=== PATIENT | male | born 1950 | race Caucasian/White ===

== ENCOUNTER 2017-12-05 10:49 | Emergency (ER) | payer MEDICARE, MEDICAID, SELFPAY ==
[2017-12-05 10:50] VITALS: BP 128/84; PULSE 109; RESP 15; TEMP 35.8; O2SAT 94; BMI 27.5
--- NOTE | 2017-12-05 10:57 | RAD_ITS ---
STUDY: X-RAY CHEST REASON FOR EXAM: Male, 67 years old. Shortness of breath. TECHNIQUE: PA and lateral views of the chest. COMPARISON: Comparison is made with prior study dated April 12, 2017. FINDINGS: EKG electrodes are seen. Stable elevation of the right hemidiaphragm. Mild increased linear markings at the lung bases suggestive of bibasilar linear atelectasis. There is no demonstrated pleural abnormality. Normal size heart. Normal mediastinum and bruce. Normal visualized pulmonary arteries. There is atherosclerotic tortuosity of the aortic arch and descending thoracic aorta. There is demineralization of the osseous structures. Healed bilateral rib fractures. There is no demonstrated abnormality of the visualized soft tissue structures of the upper abdomen. RAD/Chest PA and Lateral IMPRESSION: Mild degree of increased linear markings at the lung bases suggestive of bibasilar linear atelectasis. Electronically Signed: Pedro Mendez MD at 12:27 EDT Tel [phone], Service support ,
--- NOTE | 2017-12-05 11:27 | EKG12_ITS ---
Test Reason : SOB Blood Pressure : / mmHG Vent. Rate : 084 BPM Atrial Rate : 084 BPM P-R Int : 166 ms QRS Dur : 092 ms QT Int : 382 ms P-R-T Axes : 020 -11 007 degrees QTc Int : 451 ms Normal sinus rhythm Normal ECG Confirmed by KIMMY QUIÑONEZ MD ([id number]), make up editor DIANE MONIQUE ([id number]) on 12/07/2017 1:30:16 PM Referred By: AUNDREA Confirmed By:KIMMY QUIÑONEZ MD
--- NOTE | 2017-12-05 11:28 | ED.VIS.GEN ---
History of Present Illness Chief Complaint: Shortness of Breath Informant: Patient Onset: Days - 2-3 Quality: can't breathe Location: chest Current Severity: Mild Maximum Severity: Moderate Worsened by: exertion, sometimes w/ lying down Relieved by: rest Associated Symptoms: cough prod of green sputum Narrative: Patient has been feeling poorly for the last 2 or 3 days with dyspnea with exertion, green productive cough, no fevers/chills/rigors, he does not think he has had any chest discomfort or heaviness or pressure. Denies any new swelling in his legs, sore throat, earache, runny nose. - Past Medical History (1) Depression Status: Chronic (2) Hyperlipidemia Status: Chronic (3) Hypertension Status: Chronic (4) Type II diabetes mellitus Status: Chronic Past Medical History - Allergies and Home Meds Allergies/Adverse Reactions: Allergies No Known Allergies Allergy (Verified 12/05/17 10:52) Home Medications: Home Medications Medication Instructions Recorded Doxycycline Monohydrate 100 mg PO BID #20 cap 12/05/17 Primary Care Physician: Jerson Salmeron III, MD [Primary Care Provider] - Surgical History: noncontributory Smoking Status: Former smoker Drugs: None Review of Systems All systems negative except as indicated General: Reports: Malaise. Denies: Chills, Fever Cardiovascular: Denies: Chest pain Respiratory: Reports: Dyspnea, Sputum, Dyspnea on exertion. Denies: Paroxysmal nocturnal dyspnea Gastrointestinal: Denies: Abdominal pain, Nausea, Vomiting, Diarrhea, Melena, Hematochezia Musculoskeletal: Denies: Neck pain, Back pain, Swelling, Extremity Pain Physical Exam Vital Signs/Narrative: Vital Signs Temp Pulse Resp BP Pulse Ox 12/05/17 10:50 96.5 F L 109 H 15 128/84 H 94 General: Well nourished, Well developed Head: Normocephalic, Atraumatic Eyes: Perrl, EOMI ENT: Moist mucous membranes, No rhinorrhea, TM's clear. Negative for: Sinus tenderness Neck: Supple, Nontender, No lymphadenopathy, No JVD Cardiovascular: Regular rate, Regular rhythm, No murmurs, Normal S1, Normal S2, Tachycardia - borderline Respiratory: No distress, CTA bilaterally, Chest nontender Abdomen: Soft, Nontender, Nondistended, Normal bowel sounds Back: Nontender, Normal Inspection Extremities: Nontender, No edema Skin: Normal color, No rash Neurological: Alert, Oriented x3, Cranial nerves II-XII grossly intact, Normal Strength, Normal Sensation Psychological: Normal affect Diagnostic/Tx/Re-eval Impressions Chest X-Ray 12/05/17 10:57 IMPRESSION: Mild degree of increased linear markings at the lung bases suggestive of bibasilar linear atelectasis. Electronically Signed: Pedro Mendez MD at 12:27 EDT Tel [phone], Service support , 12/05/17 10:57 Chest PA and Lateral [RAD] Stat Laboratory Results 12/05/17 12/05/17 12/05/17 Range/Units 11:55 11:55 11:55 WBC 6.2 (4.4-11.0) K/mm3 RBC 4.62 (4.6-6.2) M/mm3 Hgb 14.2 (13.0-16.5) g/dl Hct 43.9 (40-54) % MCV 95.0 H (80-94) fL MCH 30.7 (27.0-32.0) pg MCHC 32.3 (32-36) g/gl RDW 14.8 H (11.6-14.6) % RDW Differential 51.2 H (35.1-43.9) fl Plt Count 130 L (150-450) K/mm3 MPV 10.0 (6.2-12.0) fl Immature Gran % (Auto) 0.300 (0.0-0.9) % Neut % (Auto) 79.0 H (47-70) % Lymph % (Auto) 10.8 L (19-41) % Stevens % (Auto) 8.6 (0-10) % Eos % (Auto) 1.0 (0-5) % Baso % (Auto) 0.3 (0-1) % Absolute Neuts (auto) 4.9 (2.0-7.7) X10^3/uL Absolute Lymphs (auto) 0.67 L (0.83-4.51) X10^3/ul Total Counted Not Reportable Sodium 137 (136-145) mmol/L Potassium 4.8 (3.5-5.1) mmol/L Chloride 104 (98-107) mmol/L Carbon Dioxide 26.0 (21.0-32.0) mmol/L Anion Gap 7 (5-15) BUN 33 H (7-18) mg/dL Creatinine 1.52 H (0.70-1.30) mg/dL Estim Creat Clear Calc 53.18 ml/min Est GFR (MDRD) Af Amer 59 L (>60) mL/min Est GFR (MDRD) Non-Af 49 L (>60) mL/min BUN/Creatinine Ratio 21.7 H (10-20) RATIO Glucose 313 H (74-106) mg/dL Calcium 8.9 (8.5-10.1) mg/dL Troponin I < 0.015 (<0.045) ng/mL B-Natriuretic Peptide 2.2 (0-100) pg/mL - Medical Decision Making Vital signs are normal, patient clinically is doing well, ancillaries are reassuring, including EKG, labs, chest x-ray which showed some basilar atelectasis but no definite infiltrates. He is a former smoker. Will prescribe him broad-spectrum doxycycline in case this is indicative of early pneumonia, but either way I think he can be treated as an outpatient which I discussed with him and he is comfortable with that. Advised to follow-up with his doctor for reevaluation. ED Disposition - Plan for ED Patient: Disposition: Home or Assisted Living Chief Complaint: Shortness of Breath Diagnosis: Acute bronchitis Instructions: Acute Bronchitis Prescriptions: Doxycycline Monohydrate 100 mg PO BID #20 cap Referrals: Jerson Salmeron III, MD [Primary Care Provider] - 3-5 Days
[2017-12-05 11:58] VITALS: O2SAT 98
[2017-12-05 12:02] VITALS: O2SAT 95
[2017-12-05 12:07] LABS: Absolute Lymphocyte Count 0.67 X10^3/ul (0.83-4.51); Absolute Neutrophil Count 4.9 X10^3/uL (2.0-7.7); Basophil# 0.02 X10^3/uL; Basophil% 0.3 % (0-1); Eosinophil# 0.06 X10^3/uL; Hematocrit 43.9 % (40-54); Hemoglobin 14.2 g/dl (13.0-16.5); Lymphocyte # 0.67 X10^3/ul (4.0); Lymphocyte % 10.8 % (19-41); Mean Corp Hgb Conc 32.3 g/gl (32-36); Mean Corpuscular Hgb 30.7 pg (27.0-32.0); Monocyte# 0.53 X10^3/uL; Monocyte% 8.6 % (0-10); Neutrophil # 4.88 X10^3/uL (2.7-7.7); Platelet Count 130 K/mm3 (150-450); RBC Distribution Width CV 14.8 % (11.6-14.6); RBC Distribution Width SD 51.2 fl (35.1-43.9); Red Blood Count 4.62 M/mm3 (4.6-6.2); White Blood Count 6.2 K/mm3 (4.4-11.0)
[2017-12-05 12:08] LABS: POSITIVE COUNT NO; POSITIVE DIFFERENTIAL NO; POSITIVE MORPHOLOGY NO
[2017-12-05 12:27] LABS: Anion Gap 7 (5-15); BUN 33 mg/dL (7-18); BUN/Creat Ratio 21.7 RATIO (10-20); Calcium,Total 8.9 mg/dL (8.5-10.1); Chloride 104 mmol/L (98-107); Creatinine, Serum 1.52 mg/dL (0.70-1.30); EST Glomerular Filtration Rate 49 mL/min (>60); Est Glom Filt Rate - Afr Amer 59 mL/min (>60); Estimated Creatinine Clearance 53.18 ml/min; Glucose 313 mg/dL (74-106); Potassium 4.8 mmol/L (3.5-5.1); Sodium Level 137 mmol/L (136-145)
[2017-12-05 12:31] LABS: BNP,B-Type NATRIURETIC PEPTIDE 2.2 pg/mL (0-100)
[2017-12-05 13:30] VITALS: BP 117/70; PULSE 84; RESP 16; O2SAT 98
[2017-12-05 14:23] VITALS: BP 112/71; PULSE 82; RESP 12; O2SAT 98
--- NOTE | 2017-12-06 15:46 | CM.ED ---
ED CALLBACK: Follow-up call placed to patient. Rajesh states he is feeling better today. He confirms that he did fill and start his prescription. He has an appointment scheduled with Dr. Salmeron for December 29. I encouraged him to call Dr. Salmeron's office to make an earlier appointment, if his symptoms seem to be returning. Patient states understanding and denies questions/concerns.
== END 2017-12-05 14:24 | disposition home or self-care (01) ==
PROVIDERS: Emergency Provider Emergency Medicine; Family Provider Family Medicine; PCP Family Medicine
DX: J20.9 Acute bronchitis, unspecified (principal); Z87.891 Personal history of nicotine dependence
CPT/HCPCS: 71046; 80048; 83880; 84484; 85025; 93005; 94760; 96360; 96361; 99284; J7040; A4216

== ENCOUNTER 2018-07-02 19:49 | Emergency (ER) | payer MEDICARE, MEDICAID, SELFPAY ==
[2018-07-02 19:50] VITALS: BP 137/83; PULSE 94; RESP 16; TEMP 35.9; O2SAT 99; BMI 28.9
--- NOTE | 2018-07-02 20:44 | RAD_ITS ---
STUDY: X-RAY - LEFT KNEE REASON FOR EXAM: Male, 67 years old. Fall. Left leg pain. TECHNIQUE: 3 view(s) of the knee. COMPARISON: None. FINDINGS: Normal visualized distal femur. Normal visualized proximal tibia and fibula. Normal proximal tibiofibular articulation. There is a nondisplaced oblique fracture through the proximal fibular shaft. No other fracture or dislocation is seen.. There is mild degenerative arthrosis of the medial femorotibial compartment. There is moderate degenerative arthrosis of the lateral femorotibial compartment with moderate joint space narrowing. There is moderate degenerative arthrosis of the patellofemoral articulation. There is no demonstrated joint effusion. The soft tissue structures are unremarkable. RAD/Knee 3 Views IMPRESSION: 1. Nondisplaced fracture of the proximal fibular shaft. 2. Degenerative changes of the left knee. Electronically Signed: Basil Mon DO at 21:55 EST Tel [phone], Service support ,
--- NOTE | 2018-07-02 20:44 | RAD_ITS ---
STUDY: X-RAY - LEFT TIBIA AND FIBULA REASON FOR EXAM: Male, 67 years old. Pain, fall TECHNIQUE: 4 view(s) of the tibia and fibula were obtained. COMPARISON: None. FINDINGS: Normal visualized tibia. There is an oblique lucency at the proximal shaft of the fibula. Mild degenerative changes at the knee. The soft tissue structures are unremarkable. RAD/Tibia & Fibula 2 Views IMPRESSION: Oblique fracture at the proximal shaft of the fibula. Electronically Signed: Michael Harrison DO at 22:02 EST Tel [phone], Service support ,
--- NOTE | 2018-07-02 20:44 | ED.VISSUMM ---
- ER Visit Summary Date of Service: 07/02/18 Chief Complaint: Left knee and lower leg pain History of Present Illness: The patient is a 67 M who presents for evaluation of injury to the left knee and lower leg after a fall that occurred 12 days ago. Patient states he slipped and fell down approximately 5 stairs 12 days ago. He injured his left knee with radiation of pain down the lateral side of the leg to the ankle. It is worse with walking. He has been ambulating on it due to his living conditions and no choice but to walk. He has been able to weight-bear but with pain. He has been using ibuprofen for pain with some improvement. However he was concerned he was taking too much ibuprofen and thus has reduced his dose to 600 mg at bedtime. He was taking 600 mg 3 times a day for 4 days. He denies any other injuries. He has a history of diabetes and stage III chronic kidney disease. He is not on any blood thinners. Physical Examination: Vital signs: afebrile, hemodynamically stable, no hypoxia on room air General: well nourished, well developed, in no distress Skin: warm, dry, no rash, no pallor HEENT: normocephalic and atraumatic; PERRL, EOMI, moist mucous membranes Cardiovascular: regular rate and rhythm Respiratory: No increased work of breathing MSK: Moves all extremities, no pelvic tenderness, negative logroll bilaterally, patient able to lift both legs and full extension of the bed. No deformities, normal strength, tenderness to palpation of the left fibular head, healing contusion noted over the left lateral malleolus and left lateral proximal foot, no tenderness to palpation of the bilateral malleoli, anterior or posterior. Full inversion and eversion of the foot with mild pain with inversion. No tenderness to palpation of the navicular head or fifth metatarsal base. No tenderness to the dorsum of the foot. DP pulses are 2+ and symmetric. Neuro: Awake and alert, oriented ?4. No facial droop, sensation and motor function intact and symmetric Test Results: Medications Given Discontinued Medications Acetaminophen (Tylenol) 1,000 mg PO X1 ONE Stop: 07/02/18 20:45 Last Admin: 07/02/18 20:49 Dose: 1,000 mg Clinical Impression(s) from Imaging Studies Knee X-Ray 07/02/18 20:44 IMPRESSION: 1. Nondisplaced fracture of the proximal fibular shaft. 2. Degenerative changes of the left knee. Electronically Signed: Basil Mon DO at 21:55 EST Tel [phone], Service support , Tibia/Fibula X-Ray 07/02/18 20:44 IMPRESSION: Oblique fracture at the proximal shaft of the fibula. Electronically Signed: Michael Harrison at 22:02 EST Tel [phone], Service support , Ankle X-Ray 07/02/18 21:00 IMPRESSION: No acute bony injury of the ankle. Electronically Signed: Michael Harrison at 21:58 EST Tel [phone], Service support , Emergency Department Course and Treatment: Patient was given Tylenol for pain. Imaging was performed of the left lower extremity from the knee down to the ankle. Patient had a nondisplaced fracture of the proximal fibula, with no fracture noted to the tibia, distal fibula, ankle or knee. Patient had no widening of the ankle mortise or any other findings on physical exam or x-ray to be concerning for syndesmotic tear that would be indicative of a Massenouve fracture. Patient is already 12 days status post fracture and has been weightbearing as entire time. We discussed splinting or other supportive mechanism to help with pain, and patient declined any further treatment. He was given a prescription for Tylenol to use for pain. Patient was discharged home. Treatment Plan: [] Disposition: [] Impression: Isolated proximal left nondisplaced radial fracture This note was generated with [employer] dictation software. It may contain incorrect words, spelling, and punctuation that were not noted in review of the chart prior to signing ED Disposition - Plan for ED Patient: Disposition: Home or Assisted Living Chief Complaint: Lower Extremity Injury Instructions: ED Fx Lower Ext Prescriptions: RX: Acetaminophen [Tylenol Tablet] 325 - 650 mg PO Q6H PRN PRN #60 tab PRN Reason: Pain Referrals: Jerson Salmeron III, MD [Primary Care Provider] - 1 Week if not improving Additional Instructions: You have a fracture of your upper fibula, which is the leg bone on the outside of your leg just below your knee. Please use the Tylenol as prescribed for pain. Rest the leg and keep it elevated when possible. You may apply ice to the area to help with pain. Apply ice for 15 minutes 3 times a day as needed. Follow-up with your doctor if you continue to have issues with leg pain. If you have any worsening of your condition or any new concerning symptoms, please return immediately to the emergency department for another evaluation.
--- NOTE | 2018-07-02 20:47 | ED.DCSUM_ITS ---
- ER Visit Summary Date of Service: 07/02/18 Chief Complaint: Left knee and lower leg pain History of Present Illness: The patient is a 67 M who presents for evaluation of injury to the left knee and lower leg after a fall that occurred 12 days ago. Patient states he slipped and fell down approximately 5 stairs 12 days ago. He injured his left knee with radiation of pain down the lateral side of the leg to the ankle. It is worse with walking. He has been ambulating on it due to his living conditions and no choice but to walk. He has been able to weight-bear but with pain. He has been using ibuprofen for pain with some improvement. However he was concerned he was taking too much ibuprofen and thus has reduced his dose to 600 mg at bedtime. He was taking 600 mg 3 times a day for 4 days. He denies any other injuries. He has a history of diabetes and stage III chronic kidney disease. He is not on any blood thinners. Physical Examination: Vital signs: afebrile, hemodynamically stable, no hypoxia on room air General: well nourished, well developed, in no distress Skin: warm, dry, no rash, no pallor HEENT: normocephalic and atraumatic; PERRL, EOMI, moist mucous membranes Cardiovascular: regular rate and rhythm Respiratory: No increased work of breathing MSK: Moves all extremities, no pelvic tenderness, negative logroll bilaterally, patient able to lift both legs and full extension of the bed. No deformities, normal strength, tenderness to palpation of the left fibular head, healing contusion noted over the left lateral malleolus and left lateral proximal foot, no tenderness to palpation of the bilateral malleoli, anterior or posterior. Full inversion and eversion of the foot with mild pain with inversion. No tenderness to palpation of the navicular head or fifth metatarsal base. No tenderness to the dorsum of the foot. DP pulses are 2+ and symmetric. Neuro: Awake and alert, oriented ?4. No facial droop, sensation and motor function intact and symmetric Test Results: Medications Given Discontinued Medications Acetaminophen (Tylenol) 1,000 mg PO X1 ONE Stop: 07/02/18 20:45 Last Admin: 07/02/18 20:49 Dose: 1,000 mg Clinical Impression(s) from Imaging Studies Knee X-Ray 07/02/18 20:44 IMPRESSION: 1. Nondisplaced fracture of the proximal fibular shaft. 2. Degenerative changes of the left knee. Electronically Signed: Basil Mon DO at 21:55 EST Tel [phone], Service support , Tibia/Fibula X-Ray 07/02/18 20:44 IMPRESSION: Oblique fracture at the proximal shaft of the fibula. Electronically Signed: Michael Harrison at 22:02 EST Tel [phone], Service support , Ankle X-Ray 07/02/18 21:00 IMPRESSION: No acute bony injury of the ankle. Electronically Signed: Michael Harrison at 21:58 EST Tel [phone], Service support , Emergency Department Course and Treatment: Patient was given Tylenol for pain. Imaging was performed of the left lower extremity from the knee down to the ankle. Patient had a nondisplaced fracture of the proximal fibula, with no fracture noted to the tibia, distal fibula, ankle or knee. Patient had no widening of the ankle mortise or any other findings on physical exam or x-ray to be concerning for syndesmotic tear that would be indicative of a Massenouve fracture. Patient is already 12 days status post fracture and has been weightbearing as entire time. We discussed splinting or other supportive mechanism to help with pain, and patient declined any further treatment. He was given a prescription for Tylenol to use for pain. Patient was discharged home. Treatment Plan: [] Disposition: [] Impression: Isolated proximal left nondisplaced radial fracture This note was generated with [employer] dictation software. It may contain incorrect words, spelling, and punctuation that were not noted in review of the chart prior to signing ED Disposition - Plan for ED Patient: Disposition: Home or Assisted Living Chief Complaint: Lower Extremity Injury Instructions: ED Fx Lower Ext Prescriptions: RX: Acetaminophen [Tylenol Tablet] 325 - 650 mg PO Q6H PRN PRN #60 tab PRN Reason: Pain Referrals: Jerson Salmeron III, MD [Primary Care Provider] - 1 Week if not improving Additional Instructions: You have a fracture of your upper fibula, which is the leg bone on the outside of your leg just below your knee. Please use the Tylenol as prescribed for pain. Rest the leg and keep it elevated when possible. You may apply ice to the area to help with pain. Apply ice for 15 minutes 3 times a day as needed. Follow-up with your doctor if you continue to have issues with leg pain. If you have any worsening of your condition or any new concerning symptoms, please return immediately to the emergency department for another evaluation.
[2018-07-02] MEDS: Acetaminophen 500 MG Tablet 1000 MG PO (20:49)
--- NOTE | 2018-07-02 21:00 | RAD_ITS ---
STUDY: X-RAY - LEFT ANKLE REASON FOR EXAM: Male, 67 years old. Fall TECHNIQUE: 3 view(s) of the ankle. COMPARISON: None. FINDINGS: Normal visualized distal tibia and fibula. Normal medial and lateral malleoli. Normal tibiotalar articulation and ankle mortise. Normal visualized talus and calcaneus. Calcaneal spurring. The visualized subtalar, talonavicular, calcaneocuboid and tarsal articulations are normal. The soft tissue structures are unremarkable. RAD/Ankle min 3 Views IMPRESSION: No acute bony injury of the ankle. Electronically Signed: Michael Harrison DO at 21:58 EST Tel [phone], Service support ,
--- NOTE | 2018-07-02 22:55 | ED.DEP ---
ED Disposition - Plan for ED Patient: Disposition: Home or Assisted Living Chief Complaint: Lower Extremity Injury Instructions: ED Fx Lower Ext Prescriptions: Acetaminophen [Tylenol Tablet] 325 - 650 mg PO Q6H PRN PRN #60 tab PRN Reason: Pain Referrals: Jerson Salmeron III, MD [Primary Care Provider] - 1 Week if not improving Additional Instructions: You have a fracture of your upper fibula, which is the leg bone on the outside of your leg just below your knee. Please use the Tylenol as prescribed for pain. Rest the leg and keep it elevated when possible. You may apply ice to the area to help with pain. Apply ice for 15 minutes 3 times a day as needed. Follow-up with your doctor if you continue to have issues with leg pain. If you have any worsening of your condition or any new concerning symptoms, please return immediately to the emergency department for another evaluation.
--- OUTSIDE RECORDS SUMMARY | 2018-08-19 00:20 | XMS RPT_ITS ---
:1950 Author Organization [facility] Care Team Providers Name Role Phone CEBUL III, JERSON A Referring Unavailable CEBUL III, JERSON A Attending Unavailable CEBUL III, JERSON A Referring Unavailable CEBUL III, JERSON A Attending Unavailable CEBUL III, JERSON A Referring Unavailable CEBUL III, JERSON A Referring Unavailable CEBUL III, JERSON A Referring Unavailable CEBUL III, JERSON A Attending Unavailable CEBUL III, JERSON A Referring Unavailable CEBUL III, JERSON A Referring Unavailable CEBUL III, JERSON A Attending Unavailable CEBUL III, JERSON A Referring Unavailable Cebul III, Jerson Primary Care Unavailable Kelly Tan Attending Unavailable Cebul III, Jerson Primary Care Unavailable Jose A Caraballo Attending Unavailable Cebul III, Jerson Primary Care Unavailable SHERI GUILLAUME Attending Unavailable PROBLEMS PROBLEMS DATE TYPE CONDITION / CODE ATTENDING STATUS SOURCE 04/25/2018 Active 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 immunization / [place] Z23(ICD-10) Repository 03/15/2016 Active Hyperlipidemia, NA Active [facility] unspecified / [place] E78.5(ICD-10) Repository 09/11/2005 Active Essential NA Active [facility] (primary) [place] hypertension / Repository I10(ICD-10) 09/14/2017 Active Type 2 diabetes NA Active [facility] mellitus with [place] diabetic chronic Repository kidney disease / E11.22(ICD-10) 09/14/2017 Active Chronic kidney NA Active [facility] disease, stage 3 [place] (moderate) / Repository N18.3(ICD-10) PROCEDURES PROCEDURES No Procedure Records FoundRESULTS RESULTS OBSOLETE Observed: 08/07/2018 Status: COMPLETED Source: [place] 12:00 AM [facility] REPOSITORY Refill (FAMPWS) MARYCHUY GRAYSON ([id number]) 1950 M Date Time Provider Department 08/07/18 JERSON SALMERON III During your visit today, we recorded the following information about you: Gagan Barboza CMA, MA 08/07/2018 2:12 PM Signed CAL: 07/31/2018 NOV: 10/31/2018 Last prescription: 08/06/2017 Patient has been identified by name and date of : Yes Pending Prescriptions Disp Refills SITAGLIPTIN 50 MG TABLET 90 tablet 3 Sig: Take 1 tablet by mouth once daily. CHAITANYA: No RX INSTRUCTIONS: Pharmacy initiated this request. No need to notify patient. LIGIA Diamond APRN.CNP 08/07/2018 3:06 PM Signed Script sent. Yasmeen Garcia APRN.CNP Allergies As of Date: 08/07/2018 (No Known Allergies) Date Reviewed: 07/31/2018 Reviewed by: Elaine Garcia Ma - Fully Assessed Reason for Visit: Refill Request [94] Visit Diagnosis:Type 2 diabetes mellitus with stage 3 chronic kidney disease, without long-term current use of insulin (HCC) [E11.22, N18.3] Order(s):sitaGLIPtin (JANUVIA) 50 mg tabletTake 1 tablet by mouth once daily.Disp: 90 tabletRfl: 3 Prescriptions as of 08/07/2018 Sig: SITAGLIPTIN 50 MG TABLET Take 1 tablet by mouth once d* DICYCLOMINE 10 MG CAPSULE 10-20 mg by mouth before meal* LORAZEPAM 1 MG TABLET Take 1 tablet by mouth every * LORAZEPAM 1 MG TABLET Take 1 tablet by mouth every * LORAZEPAM 1 MG TABLET Take 1 tablet by mouth every * SIMVASTATIN 20 MG TABLET TAKE 1 TABLET AT BEDTIME LISINOPRIL 10 MG TABLET TAKE 1 TABLET EVERY DAY CITALOPRAM 20 MG TABLET Take 1 tablet by mouth once d* MIRTAZAPINE 45 MG TABLET Take 1 tablet by mouth daily * PIOGLITAZONE 45 MG TABLET TAKE 1 TABLET EVERY DAY METFORMIN 500 MG TABLET 500mg once/day at supper. METOPROLOL SUCCINATE ER 25 MG* Take 1 tablet by mouth once d* LORAZEPAM 1 MG TABLET Take 1 tablet by mouth every * GLIMEPIRIDE 4 MG TABLET Take 1 tablet by mouth twice * UNILET SUPER THIN LANCETS 30 * test blood sugar twice a day.* BLOOD SUGAR DIAGNOSTIC STRIPS Test blood sugars two times d* Problem List As Of Date 08/07/2018 Noted Resolved BENIGN HYPERTENSION [I10] INVALID FOR* Type 2 diabetes mellitus with stage 3 chronic k*INVALID FOR* Hyperkalemia [E87.5] INVALID FOR*09/15/2016 Chronic anxiety [F41.9] INVALID FOR* Hyperlipidemia LDL goal <100 [E78.5] INVALID FOR* Chronic midline low back pain without sciatica *INVALID FOR* Irritable bowel syndrome with diarrhea [K58.0] INVALID FOR* Recurrent major depressive disorder, in partial*INVALID FOR* Prescriptions ordered this encounter Disp Refills Start End SITAGLIPTIN 50 MG TABLET 90 t* 3 08/07/2018 Route: ORAL Sig: Take 1 tablet by mouth once daily. Medications Discontinued During This Encounter sitaGLIPtin (JANUVIA) 50 mg tablet 90 t* 3 08/06/2017 08/07/2018 Route: ORAL Sig: Take 1 tablet by mouth once daily. Disc: Reason for discontinue is not on file. Encounter Status:Closed by YASMEEN GARCIA CNP on 08/07/18 PROGRESS Observed: 07/31/2018 Status: COMPLETED Source: [place] 10:28 AM [facility] REPOSITORY O ID: [id number] Author: Jerson Salmeron III Service: (none) Author Type: Physician Type: Progress Notes Filed: 07/31/2018 12:09 PM Note Text: SUBJECTIVE: This is a 68 year old male that is here today for Chronic Medical Conditions. 1. diabetes mellitus II fair diet. Little exercise. HbA1c 7.5 in 2017. 2. hypertension 3. hyperlipidemia 4. depression--felt depressed over holidays. Lonely. Takes lorazapam TID. States helpful to prevent anxiety attacks, feeling like he is having heart attack with tachycardia. Lots of worry jelly at the end of the month because of food insecurity. No money to go anywhere. Only gets $15/mo in food stamps 5. in May he fell on steps, resulting if fx of L fibula. Still has pain. 6. episode of gastroenteritis in Jun. Went to ER--now resolved. 7. ch diarrhea for yrs. Bentyl not helpful. No blood in stools or melena. Last colonoscopy 2007=diverticulosis. ---- Indications: Average-risk screening for colon cancer (V76.51). Constipation (564.00). See recent office note dated 04/20/08 for clinical details. ? Consent: The benefits, risks, alternatives and personnel have been explained to the patient and informed consent was obtained from the patient for the planned procedure and sedation. ? Preparation: Pulse, pulse oximetry and blood pressure were monitored throughout the procedure. ? Physical Exam: ? HEENT: No icterus. ?CHEST: Lungs clear to auscultation and percussion. ?CARDIOVASCULAR: Regular rhythm. Normal heart rate. Normal S1, S2. No murmurs. ?ABDOMEN: Soft. Bowel sounds normal. No tenderness. No organomegaly. Obese. ? Medications: Demerol 65 mg IV before the procedure Versed 3.5 mg IV before the procedure ? Rectal Exam: Normal rectal exam. Small internal hemorrhoids were found. No masses. No fissures. ? Procedure: ?The endoscope was passed with ease through the anus under direct visualization and advanced to the cecum, confirmed by appendiceal orifice and ileocecal valve. The scope was withdrawn and the mucosa was carefully examined. The quality of the preparation was excellent. ? Findings: ?There was evidence of mild diverticulosis in the sigmoid colon and descending colon. No evidence of angioectasia/AVM in the colon. No evidence of polyps in the colon. Otherwise, the colon appeared to be normal. ? Unplanned Events: ?There were no unplanned events. ? Summary: Small internal hemorrhoids, (455.0) were found during the rectal exam. Mild diverticulosis (562.10) found in the sigmoid colon and descending colon. ? Procedure Codes: 17640: Colonoscopy ? Recommendations: Annual occult blood testing Colonoscopy recommended in 10 years. Consider the use of Citrucel tablets 2 po bid. Forward to Jerson Salmeron M.D. Version 1, electronically signed by Dr. Guy Arrieta on 07/01/2008 at 11:14. PAST MEDICAL HISTORY Diagnosis Date - Chronic midline low back pain without sciatica 01/28/2018 - Depressive disorder, not elsewhere classified - DIABETES MELLITUS TYPE II UNCONTR UNCOMPL 06/23/2005 - Diverticulosis of colon (without mention of hemorrhage) - Internal hemorrhoids without mention of complication - Irritable bowel syndrome with diarrhea 04/30/2018 - Other unspecified back disorder hx of back injury - Type 2 diabetes mellitus with stage 3 chronic kidney disease (HCC) 07/06/2015 - Unspecified constipation Current Outpatient Prescriptions on File Prior to Visit: simvastatin (ZOCOR) 20 mg tablet TAKE 1 TABLET AT BEDTIME lisinopril (ZESTRIL, PRINIVIL) 10 mg tablet TAKE 1 TABLET EVERY DAY LORazepam (ATIVAN) 1 mg tablet Take 1 tablet by mouth every 8 hours as needed for Anxiety for up to 30 days. dicyclomine (BENTYL) 10 mg capsule 10mg by mouth before meals and every 6 hrs as needed for diarrhea citalopram (CELEXA) 20 mg tablet Take 1 tablet by mouth once daily. mirtazapine (REMERON) 45 mg tablet Take 1 tablet by mouth daily at bedtime. pioglitazone (ACTOS) 45 mg tablet TAKE 1 TABLET EVERY DAY metFORMIN (GLUCOPHAGE) 500 mg tablet 500mg once/day at supper. metoprolol succinate ER (TOPROL XL) 25 mg 24 hr tablet Take 1 tablet by mouth once daily. glimepiride (AMARYL) 4 mg tablet Take 1 tablet by mouth twice daily with meals. UNILET SUPER THIN LANCETS 30 gauge misc test blood sugar twice a day.dx:250.02 insulin:no sitaGLIPtin (JANUVIA) 50 mg tablet Take 1 tablet by mouth once daily. blood sugar diagnostic (FREESTYLE LITE STRIPS) test strip Test blood sugars two times daily E11.22 LORazepam (ATIVAN) 1 mg tablet Take 1 tablet by mouth every 8 hours as needed for Anxiety for up to 30 days. LORazepam (ATIVAN) 1 mg tablet Take 1 tablet by mouth every 8 hours as needed for Anxiety for up to 30 days. LORazepam (ATIVAN) 1 mg tablet Take 1 tablet by mouth every 8 hours as needed for up to 30 days. No current facility-administered medications on file prior to visit. FAMILY HISTORY Problem Relation Age of Onset - Diabetes Father - Cancer Mother unknown - Cancer Brother esophagus - Heart Father Social History Substance Use Topics - Smoking status: Former Smoker Packs/day: 1.00 Years: 30.00 Types: Cigarettes Quit date: 06/27/2012 - Smokeless tobacco: Never Used - Alcohol use No BP 118/83 Pulse 79 Resp 14 Wt 95.3 kg (210 lb) BMI 29.71 kg/m? . OBJECTIVE: APPEARANCE Well appearing, alert, in no acute distress, well-hydrated, well nourished. HEART RRR with normal S1 and S2, no murmurs, no gallops, no JVD appreciated LUNG clear to auscultation Appearance: well dressed well groomed, cooperative and pleasant Behavior: good eye contact Speech: fluent and coherent Mood: depressed Affect: constricted Perceptions: none Thought process: goal directed Thought Content: preoccupations with poverty and food insecurity Intelligence level: normal Insight: good Judgment: good Lab Results for MARYCHUY GRAYSON ( ) as of 07/31/2018 10:45 Ref. Range 04/25/2018 10:23 Sodium Latest Ref Range: 136 - 144 mmol/L 139 Potassium Latest Ref Range: 3.7 - 5.1 mmol/L 4.8 Chloride Latest Ref Range: 97 - 105 mmol/L 102 CO2 Latest Ref Range: 22 - 30 mmol/L 21 (L) BUN Latest Ref Range: 9 - 24 mg/dL 27 (H) Creatinine Latest Ref Range: 0.73 - 1.22 mg/dL 1.52 (H) Glucose Latest Ref Range: 74 - 99 mg/dL 272 (H) Protein, Total Latest Ref Range: 6.3 - 8.0 g/dL 7.5 Calcium Latest Ref Range: 8.5 - 10.2 mg/dL 9.6 Albumin Latest Ref Range: 3.9 - 4.9 g/dL 4.1 Bilirubin, Total Latest Ref Range: 0.2 - 1.3 mg/dL 0.4 Alkaline Phosphatase Latest Ref Range: 38 - 113 U/L 62 ALT Latest Ref Range: 10 - 54 U/L 19 AST Latest Ref Range: 14 - 40 U/L 19 Anion Gap Latest Ref Range: 9 - 18 mmol/L 16 eGFR- Unknown 56 eGFR-All Other Races Latest Units: . 46 Cholesterol, Total Latest Ref Range: <200 mg/dL 143 Triglyceride Latest Ref Range: <150 mg/dL 239 (H) Fasting Time Latest Units: hrs 18 HDL Cholesterol Latest Ref Range: >39 mg/dL 38 (L) LDL Cholesterol Latest Ref Range: <100 mg/dL 57 VLDL Cholesterol Latest Ref Range: <30 mg/dL 48 (H) TC:HDL Ratio Latest Ref Range: <5.10 3.76 LDL:HDL Ratio Latest Ref Range: <2.54 1.50 Non HDL Cholesterol Latest Ref Range: <130 mg/dL 105 Hematocrit Latest Ref Range: 39.0 - 51.0 % 44.4 Hemoglobin A1C Latest Ref Range: 4.3 - 5.6 % 7.5 (H) Estimated Average Glucose Latest Units: mg/dL 169 WBC Latest Ref Range: 3.70 - 11.00 k/uL 6.82 RBC Latest Ref Range: 4.20 - 6.00 m/uL 4.52 Hemoglobin Latest Ref Range: 13.0 - 17.0 g/dL 13.9 Platelet Count Latest Ref Range: 150 - 400 k/uL 223 MCV Latest Ref Range: 80.0 - 100.0 fL 98.2 MCH Latest Ref Range: 26.0 - 34.0 pG 30.8 MCHC Latest Ref Range: 30.5 - 36.0 g/dL 31.3 MPV Latest Ref Range: 9.0 - 12.7 fL 10.6 RDW-CV Latest Ref Range: 11.5 - 15.0 % 14.2 Absolute nRBC Latest Ref Range: <0.01 k/uL <0.01 ASSESSMENT: Diabetes mellitus?near goal Hypertension?at goal Hyperlipidemia?at goal Depression?stable Chronic anxiety?stable dose of lorazepam over the last 2 years. It allows him to function to achieve activities of daily living. It has resulted in fewer ER visits for evaluation of noncardiac, anxiety caused chest pain. Irritable bowel syndrome with anxiety associated diarrhea PLAN: healthy diabetic diet and regular exercise eat less sugar, bread, potato, pasta, rice, corn, corn syrup, saturated fats increase dicyclomine 10-20mg four times/day as needed for diarrhea same other medications return to office 3 mos with labs recommend taking one-half lorazapam dose in afternoons as able in order to gradually reduce amount of lorazapam that you are taking Jerson Salmeron III MD PDMP website checked and validated. All prescriptions have been APPROPRIATELY filled. No suspicious activity was identified. 07/31/2018 by Jerson Salmeron III MD CNOV Observed: 07/31/2018 Status: COMPLETED Source: [place] 10:00 AM [facility] REPOSITORY Office Visit (FAMPWS) MARYCHUY GRAYSON ([id number]) 1950 M Date Time Provider Department 07/31/18 10:00 AM JERSON SALMERON III FAMPWS During your visit today, we recorded the following information about you: Pulse Respiration Blood pressure Weight 79/minute 14/minute 118/83 95.3 kg Jerson Salmeron III MD 07/31/2018 12:09 PM Signed SUBJECTIVE: This is a 68 year old male that is here today for Chronic Medical Conditions. 1. diabetes mellitus II fair diet. Little exercise. HbA1c 7.5 in 2017. 2. hypertension 3. hyperlipidemia 4. depression--felt depressed over holidays. Lonely. Takes lorazapam TID. States helpful to prevent anxiety attacks, feeling like he is having heart attack with tachycardia. Lots of worry jelly at the end of the month because of food insecurity. No money to go anywhere. Only gets $15/mo in food stamps 5. in May he fell on steps, resulting if fx of L fibula. Still has pain. 6. episode of gastroenteritis in Jun. Went to ER--now resolved. 7. ch diarrhea for yrs. Bentyl not helpful. No blood in stools or melena. Last colonoscopy 2007=diverticulosis. Indications: Average-risk screening for colon cancer (V76.51). Constipation (564.00). See recent office note dated 04/20/08 for clinical details. ? Consent: The benefits, risks, alternatives and personnel have been explained to the patient and informed consent was obtained from the patient for the planned procedure and sedation. ? Preparation: Pulse, pulse oximetry and blood pressure were monitored throughout the procedure. ? Physical Exam: ? HEENT: No icterus. ?CHEST: Lungs clear to auscultation and percussion. ?CARDIOVASCULAR: Regular rhythm. Normal heart rate. Normal S1, S2. No murmurs. ?ABDOMEN: Soft. Bowel sounds normal. No tenderness. No organomegaly. Obese. ? Medications: Demerol 65 mg IV before the procedure Versed 3.5 mg IV before the procedure ? Rectal Exam: Normal rectal exam. Small internal hemorrhoids were found. No masses. No fissures. ? Procedure: ?The endoscope was passed with ease through the anus under direct visualization and advanced to the cecum, confirmed by appendiceal orifice and ileocecal valve. The scope was withdrawn and the mucosa was carefully examined. The quality of the preparation was excellent. ? Findings: ?There was evidence of mild diverticulosis in the sigmoid colon and descending colon. No evidence of angioectasia/AVM in the colon. No evidence of polyps in the colon. Otherwise, the colon appeared to be normal. ? Unplanned Events: ?There were no unplanned events. ? Summary: Small internal hemorrhoids, (455.0) were found during the rectal exam. Mild diverticulosis (562.10) found in the sigmoid colon and descending colon. ? Procedure Codes: 24643: Colonoscopy ? Recommendations: Annual occult blood testing Colonoscopy recommended in 10 years. Consider the use of Citrucel tablets 2 po bid. Forward to Jerson Salmeron M.D. Version 1, electronically signed by Dr. Guy Arrieta on 07/01/2008 at 11:14. PAST MEDICAL HISTORY Diagnosis Date - Chronic midline low back pain without sciatica 01/28/2018 - Depressive disorder, not elsewhere classified - DIABETES MELLITUS TYPE II UNCONTR UNCOMPL 06/23/2005 - Diverticulosis of colon (without mention of hemorrhage) - Internal hemorrhoids without mention of complication - Irritable bowel syndrome with diarrhea 04/30/2018 - Other unspecified back disorder hx of back injury - Type 2 diabetes mellitus with stage 3 chronic kidney disease (HCC) 07/06/2015 - Unspecified constipation Current Outpatient Prescriptions on File Prior to Visit: simvastatin (ZOCOR) 20 mg tablet TAKE 1 TABLET AT BEDTIME lisinopril (ZESTRIL, PRINIVIL) 10 mg tablet TAKE 1 TABLET EVERY DAY LORazepam (ATIVAN) 1 mg tablet Take 1 tablet by mouth every 8 hours as needed for Anxiety for up to 30 days. dicyclomine (BENTYL) 10 mg capsule 10mg by mouth before meals and every 6 hrs as needed for diarrhea citalopram (CELEXA) 20 mg tablet Take 1 tablet by mouth once daily. mirtazapine (REMERON) 45 mg tablet Take 1 tablet by mouth daily at bedtime. pioglitazone (ACTOS) 45 mg tablet TAKE 1 TABLET EVERY DAY metFORMIN (GLUCOPHAGE) 500 mg tablet 500mg once/day at supper. metoprolol succinate ER (TOPROL XL) 25 mg 24 hr tablet Take 1 tablet by mouth once daily. glimepiride (AMARYL) 4 mg tablet Take 1 tablet by mouth twice daily with meals. UNILET SUPER THIN LANCETS 30 gauge misc test blood sugar twice a day.dx:250.02 insulin:no sitaGLIPtin (JANUVIA) 50 mg tablet Take 1 tablet by mouth once daily. blood sugar diagnostic (FREESTYLE LITE STRIPS) test strip Test blood sugars two times daily E11.22 LORazepam (ATIVAN) 1 mg tablet Take 1 tablet by mouth every 8 hours as needed for Anxiety for up to 30 days. LORazepam (ATIVAN) 1 mg tablet Take 1 tablet by mouth every 8 hours as needed for Anxiety for up to 30 days. LORazepam (ATIVAN) 1 mg tablet Take 1 tablet by mouth every 8 hours as needed for up to 30 days. No current facility-administered medications on file prior to visit. FAMILY HISTORY Problem Relation Age of Onset - Diabetes Father - Cancer Mother unknown - Cancer Brother esophagus - Heart Father Social History Substance Use Topics - Smoking status: Former Smoker Packs/day: 1.00 Years: 30.00 Types: Cigarettes Quit date: 06/27/2012 - Smokeless tobacco: Never Used - Alcohol use No BP 118/83 Pulse 79 Resp 14 Wt 95.3 kg (210 lb) BMI 29.71 kg/m? . OBJECTIVE: APPEARANCE Well appearing, alert, in no acute distress, well- hydrated, well nourished. HEART RRR with normal S1 and S2, no murmurs, no gallops, no JVD appreciated LUNG clear to auscultation Appearance: well dressed well groomed, cooperative and pleasant Behavior: good eye contact Speech: fluent and coherent Mood: depressed Affect: constricted Perceptions: none Thought process: goal directed Thought Content: preoccupations with poverty and food insecurity Intelligence level: normal Insight: good Judgment: good Lab Results for MARYCHUY GRAYSON ( ) as of 07/31/2018 10:45 Ref. Range 04/25/2018 10:23 Sodium Latest Ref Range: 136 - 144 mmol/L 139 Potassium Latest Ref Range: 3.7 - 5.1 mmol/L 4.8 Chloride Latest Ref Range: 97 - 105 mmol/L 102 CO2 Latest Ref Range: 22 - 30 mmol/L 21 (L) BUN Latest Ref Range: 9 - 24 mg/dL 27 (H) Creatinine Latest Ref Range: 0.73 - 1.22 mg/dL 1.52 (H) Glucose Latest Ref Range: 74 - 99 mg/dL 272 (H) Protein, Total Latest Ref Range: 6.3 - 8.0 g/dL 7.5 Calcium Latest Ref Range: 8.5 - 10.2 mg/dL 9.6 Albumin Latest Ref Range: 3.9 - 4.9 g/dL 4.1 Bilirubin, Total Latest Ref Range: 0.2 - 1.3 mg/dL 0.4 Alkaline Phosphatase Latest Ref Range: 38 - 113 U/L 62 ALT Latest Ref Range: 10 - 54 U/L 19 AST Latest Ref Range: 14 - 40 U/L 19 Anion Gap Latest Ref Range: 9 - 18 mmol/L 16 eGFR- Unknown 56 eGFR-All Other Races Latest Units: . 46 Cholesterol, Total Latest Ref Range: <200 mg/dL 143 Triglyceride Latest Ref Range: <150 mg/dL 239 (H) Fasting Time Latest Units: hrs 18 HDL Cholesterol Latest Ref Range: >39 mg/dL 38 (L) LDL Cholesterol Latest Ref Range: <100 mg/dL 57 VLDL Cholesterol Latest Ref Range: <30 mg/dL 48 (H) TC:HDL Ratio Latest Ref Range: <5.10 3.76 LDL:HDL Ratio Latest Ref Range: <2.54 1.50 Non HDL Cholesterol Latest Ref Range: <130 mg/dL 105 Hematocrit Latest Ref Range: 39.0 - 51.0 % 44.4 Hemoglobin A1C Latest Ref Range: 4.3 - 5.6 % 7.5 (H) Estimated Average Glucose Latest Units: mg/dL 169 WBC Latest Ref Range: 3.70 - 11.00 k/uL 6.82 RBC Latest Ref Range: 4.20 - 6.00 m/uL 4.52 Hemoglobin Latest Ref Range: 13.0 - 17.0 g/dL 13.9 Platelet Count Latest Ref Range: 150 - 400 k/uL 223 MCV Latest Ref Range: 80.0 - 100.0 fL 98.2 MCH Latest Ref Range: 26.0 - 34.0 pG 30.8 MCHC Latest Ref Range: 30.5 - 36.0 g/dL 31.3 MPV Latest Ref Range: 9.0 - 12.7 fL 10.6 RDW-CV Latest Ref Range: 11.5 - 15.0 % 14.2 Absolute nRBC Latest Ref Range: <0.01 k/uL <0.01 ASSESSMENT: Diabetes mellitus?near goal Hypertension?at goal Hyperlipidemia?at goal Depression?stable Chronic anxiety?stable dose of lorazepam over the last 2 years. It allows him to function to achieve activities of daily living. It has resulted in fewer ER visits for evaluation of noncardiac, anxiety caused chest pain. Irritable bowel syndrome with anxiety associated diarrhea PLAN: healthy diabetic diet and regular exercise eat less sugar, bread, potato, pasta, rice, corn, corn syrup, saturated fats increase dicyclomine 10-20mg four times/day as needed for diarrhea same other medications return to office 3 mos with labs recommend taking one-half lorazapam dose in afternoons as able in order to gradually reduce amount of lorazapam that you are taking Jerson Salmeron III MD PDMP website checked and validated. All prescriptions have been APPROPRIATELY filled. No suspicious activity was identified. 07/31/2018 by DAMIEN Mathis MD, III MD 07/31/2018 10:55 AM Signed PLAN: healthy diabetic diet and regular exercise eat less sugar, bread, potato, pasta, rice, corn, corn syrup, saturated fats increase dicyclomine 10-20mg four times/day as needed for diarrhea same other medications return to office 3 mos with labs recommend taking one-half lorazapam dose in afternoons as able in order to gradually reduce amount of lorazapam that you are taking Jerson Salmeron III MD Referring Provider: JERSON SALMERON III [[id number]] Allergies As of Date: 07/31/2018 (No Known Allergies) Date Reviewed: 07/31/2018 Reviewed by: Elaine Garcia Ma - Fully Assessed Reason for Visit: Follow Up [171] Primary Visit Diagnosis:Essential hypertension, benign [I10] Other Visit Diagnoses:Irritable bowel syndrome with diarrhea [K58.0] Type 2 diabetes mellitus with stage 3 chronic kidney disease, without long-term current use of insulin (HCC) [E11.22, N18.3] Hyperlipidemia LDL goal <100 [E78.5] Recurrent major depressive disorder, in partial remission (HCC) [F33.41] Chronic anxiety [F41.9] Order(s):dicyclomine (BENTYL) 10 mg [id number] mg by mouth before meals and every 6 hrs as needed for diarrheaDisp: 100 capsuleRfl: 2 [START ON 08/09/2018] LORazepam (ATIVAN) 1 mg tabletTake 1 tablet by mouth every 6 hours as needed for Anxiety for up to 30 days.Disp: 90 tabletRfl: 0 [START ON 09/09/2018] LORazepam (ATIVAN) 1 mg tabletTake 1 tablet by mouth every 6 hours as needed for Anxiety for up to 30 days.Disp: 90 tabletRfl: 0 [START ON 10/07/2018] LORazepam (ATIVAN) 1 mg tabletTake 1 tablet by mouth every 6 hours as needed for Anxiety for up to 30 days.Disp: 90 tabletRfl: 0 Prescriptions as of 07/31/2018 Sig: SIMVASTATIN 20 MG TABLET TAKE 1 TABLET AT BEDTIME LISINOPRIL 10 MG TABLET TAKE 1 TABLET EVERY DAY CITALOPRAM 20 MG TABLET Take 1 tablet by mouth once d* MIRTAZAPINE 45 MG TABLET Take 1 tablet by mouth daily * PIOGLITAZONE 45 MG TABLET TAKE 1 TABLET EVERY DAY METFORMIN 500 MG TABLET 500mg once/day at supper. METOPROLOL SUCCINATE ER 25 MG* Take 1 tablet by mouth once d* GLIMEPIRIDE 4 MG TABLET Take 1 tablet by mouth twice * UNILET SUPER THIN LANCETS 30 * test blood sugar twice a day.* SITAGLIPTIN 50 MG TABLET Take 1 tablet by mouth once d* BLOOD SUGAR DIAGNOSTIC STRIPS Test blood sugars two times d* DICYCLOMINE 10 MG CAPSULE 10-20 mg by mouth before meal* LORAZEPAM 1 MG TABLET Take 1 tablet by mouth every * LORAZEPAM 1 MG TABLET Take 1 tablet by mouth every * LORAZEPAM 1 MG TABLET Take 1 tablet by mouth every * LORAZEPAM 1 MG TABLET Take 1 tablet by mouth every * Problem List As Of Date 07/31/2018 Noted Resolved BENIGN HYPERTENSION [I10] INVALID FOR* Type 2 diabetes mellitus with stage 3 chronic k*INVALID FOR* Hyperkalemia [E87.5] INVALID FOR*09/15/2016 Chronic anxiety [F41.9] INVALID FOR* Hyperlipidemia LDL goal <100 [E78.5] INVALID FOR* Chronic midline low back pain without sciatica *INVALID FOR* Irritable bowel syndrome with diarrhea [K58.0] INVALID FOR* Recurrent major depressive disorder, in partial*INVALID FOR* Other instructions from your clinician: PLAN: healthy diabetic diet and regular exercise eat less sugar, bread, potato, pasta, rice, corn, corn syrup, saturated fats increase dicyclomine 10-20mg four times/day as needed for diarrhea same other medications return to office 3 mos with labs recommend taking one-half lorazapam dose in afternoons as able in order to gradually reduce amount of lorazapam that you are taking Jerson Salmeron III MD Prescriptions ordered this encounter Disp Refills Start End DICYCLOMINE 10 MG CAPSULE 100 * 2 07/31/2018 Class: Med Update Si-20 mg by mouth before meals and every 6 hrs as needed for diarrhea LORAZEPAM 1 MG TABLET 90 t* 0 08/09/2018 09/08/2018 Class: Print RX Route: ORAL Sig: Take 1 tablet by mouth every 6 hours as needed for Anxiety for up to 30 days. LORAZEPAM 1 MG TABLET 90 t* 0 09/09/2018 10/09/2018 Class: Print RX Route: ORAL Sig: Take 1 tablet by mouth every 6 hours as needed for Anxiety for up to 30 days. LORAZEPAM 1 MG TABLET 90 t* 0 10/07/2018 11/06/2018 Class: Print RX Route: ORAL Sig: Take 1 tablet by mouth every 6 hours as needed for Anxiety for up to 30 days. Medications Discontinued During This Encounter dicyclomine (BENTYL) 10 mg capsule 100 * 2 04/30/2018 07/31/2018 Simg by mouth before meals and every 6 hrs as needed for diarrhea Disc: Dosage adjustment LORazepam (ATIVAN) 1 mg tablet 90 t* 0 05/13/2018 07/31/2018 Class: Print RX Route: ORAL Sig: Take 1 tablet by mouth every 8 hours as needed for Anxiety for up to 30 days. Disc: Course of therapy completed LORazepam (ATIVAN) 1 mg tablet 90 t* 0 06/13/2018 07/31/2018 Class: Print RX Route: ORAL Sig: Take 1 tablet by mouth every 8 hours as needed for Anxiety for up to 30 days. Disc: Course of therapy completed LORazepam (ATIVAN) 1 mg tablet 90 t* 0 07/13/2018 07/31/2018 Class: Print RX Route: ORAL Sig: Take 1 tablet by mouth every 8 hours as needed for Anxiety for up to 30 days. Disc: Course of therapy completed Encounter Status:Closed by JERSON SALMERON III, MD on 07/31/18 EMERGENCY DEPARTMENT Observed: 07/20/2018 Status: F Source: [place] SUMMARY 11:17 AM [facility] Medical Records Department [address] [place] [address] [place] [address] Emergency Department Summary 07/20/18 0840 MR#: [id number] Acct: [id number] Name: MARYCHUY GRAYSON Rep #: [id number] : 1950 68 From: Jose A Caraballo MD PCP: Jerson Salmeron III, MD Status: DEP ER - ER Visit Summary Date of Service: 07/20/18 Chief Complaint: Diarrhea, leg pain History of Present Illness: The patient is a 68 M with history of anxiety who has recurrent chronic diarrhea presents to the emergency department increasing symptoms. Patient states that he does get diarrhea from time to time. His symptoms were well maintained on Imodium. However, he is on a fixed income and was having difficult time affording it. He was changed to Bentyl. He states that he was using the Bentyl and had some diarrhea on Tatiana that resolved. However, it returned over the past 2 days. He denies any fevers or chills. He has had some mild abdominal cramping. He denies any shortness of breath. He is also complaining of some pain in his left lateral lower leg. He states that he does have a fracture of his fibula. He thought that he was recovering normally. He got up out of his chair and twisted and felt a pop again. Physical Examination: Vital signs reviewed General: Well-nourished, well-developed Head: Normocephalic, atraumatic Eyes: Pupils equal and reactive, extraocular muscles intact Neck, supple, no lymphadenopathy Heart: Regular rate and rhythm Respiratory: No distress, clear bilaterally Abdomen: Soft, nontender, nondistended, no peritoneal signs Back: Nontender Extremities: Nontender, no edema, no cords Skin: Normal color no rash Neuro: Alert and oriented, no focal or lateralizing deficits Test Results: [] Emergency Department Course and Treatment: The patient's diarrhea is more of a chronic issue. He states that the Bentyl was not really controlling it. I did do a rectal exam. He does have a small hemorrhoid. There is no blood. Screening labs obtained. Patient has mild renal insufficiency which is chronic. Otherwise, his labs are unremarkable. Patient given fluids and antiemetics. Is resting comfortably. He has had no diarrhea in the emergency department. I obtained an x-ray of his left fibula that he has a known fracture. There is no evidence of new fracture or distortion of the fracture. On reevaluation, the patient still resting comfortably. He is given Imodium as he states that that has helped his symptoms in the past. At this time, I do feel that he safe for outpatient therapy. He is well hydrated. He has no pain. His work appears unremarkable. He was counseled concerning symptoms and reasons to return. He will be discharged home. Treatment Plan: [] Disposition: Discharge Impression: 1. Diarrhea 2. Left fibula pain status post fracture This note was generated with Tamr dictation software. It may contain incorrect words, spelling, and punctuation that were not noted in review of the chart prior to signing ED Disposition - Plan for ED Patient: Chief Complaint: Diarrhea Instructions: ED Diarrhea Viral Prescriptions: Diphenoxylate/Atrop [Lomotil] 1 tab PO TID PRN PRN #30 tab PRN Reason: Diarrhea Referrals: Jerson Salmeron III, MD [Primary Care Provider] - What to do if you have Problems For any increased pain, shortness of breath, bleeding, nausea or vomiting, chest pain, or any unexpected problems, contact your Primary Care Provider. Call [facility] ([phone]) or report to the closest Emergency Room. Call 911 if necessary. 07/20/18 1117 <Electronically signed by Jose A Caraballo MD> Date Jose A Caraballo MD Cosigner Signature (If Indicated): Date CC: Jerson Salmeron III, MD CBC W/DIFF, AUTOMATED Collected: 07/20/2018 Status: F Source: [place] 9:00 AM [facility] REPOSITORY TYPE CODE TESTS RESULT OUT OF RANGE REFERENCE UNITS LAB L100.1000 4.4-11.0 K/mm3 Normal WBC 4.9 LAB L100.1200 4.6-6.2 M/mm3 Low RBC 4.34 LAB L100.1300 13.0-16.5 g/dl Normal HGB 13.6 LAB L100.1400 40-54 % Normal HCT 41.8 LAB L100.1500 80-94 fL High MCV 96.3 LAB L100.1600 27.0-32.0 pg Normal MCH 31.3 LAB L100.1700 32-36 g/gl Normal MCHC 32.5 LAB L100.1810 11.6-14.6 % High RDW CV 14.8 LAB L100.1820 35.1-43.9 fl High RDW SD 50.0 LAB L100.1900 150-450 K/mm3 Low PLT 131 LAB L100.2000 6.2-12.0 fl Normal MPV 10.4 LAB L100.2100 47-70 % Normal NEUT% 69.8 LAB L100.2200 19-41 % Low LY% 16.3 LAB L100.2300 0-10 % High MONO% 11.5 LAB L100.2400 0-5 % Normal EO% 1.6 LAB L100.2500 0-1 % Normal BASO% 0.4 LAB L100.2550 0.0-0.9 % Normal IM GRAN % 0.400 Result Comment: IG% - Immature Granulocytes (promyelocytes, myelocytes and metamyelocytes) > 1% indicates that a LEFT SHIFT is Present. LAB L100.2620 2.0-7.7 X10 3/uL Normal Absolute Neut 3.4 LAB L100.2720 0.83-4.51 X10 3/ul Low Absolute Lymph 0.79 Performed By: #### L100.0100 #### [facility] [address] [place], [address] COMPREHENSIVE METABOLIC Collected: 07/20/2018 Status: F Source: [facility] 9:00 AM [facility] REPOSITORY TYPE CODE TESTS RESULT OUT OF RANGE REFERENCE UNITS LAB L501.0100 74-106 mg/dL High GLU 247 Result Comment: Glucose result greater than or equal to 200 mg/dL suggests DIABETES MELLITUS per A.D.A. criteria. Please note revised GLUCOSE reference range effective 2017. LAB L501.1000 7-18 mg/dL High BUN 24 LAB L501.1100 0.70-1.30 mg/dL High CREAT,SERUM 1.51 Result Comment: The validity of the calculated GFR AND GFRAA in patients over 70 years has not been determined. Clinical correlation is essential. LAB L501.1110 >60 mL/min Low EST GFR 49 Result Comment: Non- GFR Calc LAB L501.1115 >60 mL/min Normal EST GFR - AA 60 Result Comment: GFR Calc LAB L501.1255 ml/min Normal Estimated CRCL 51.25 LAB L501.1300 10-20 RATIO Normal BUN/CRE 15.9 LAB L501.1500 6.4-8. g/dL Normal 2 T PROT 6.9 LAB L501.1800 3.2-5. g/dL Normal 0 ALB 3.5 LAB L501.1950 2.2-4. g/dL Normal 2 GLOB 3.4 LAB L501.2000 0.9-2. RATIO Normal 4 A/G 1.0 LAB L501.2200 8.5-10 mg/dL Normal .1 CA 8.6 LAB L501.4100 15-37 U/L Normal AST 17 LAB L501.4305 45-117 U/L Normal ALK P 73 LAB L501.4405 16-61 U/L Normal ALT 19 LAB L501.4600 0.20-1 mg/dL Normal .00 T BILI 0.60 LAB L501.5300 136-14 mmol/L Normal 5 NA 141 LAB L501.5600 3.5-5. mmol/L Low 1 K 3.4 LAB L501.5900 98-107 mmol/L High CL 109 LAB L501.6100 21.0-3 mmol/L Low 2.0 CO2 20.0 LAB L501.6200 5-15 Normal GAP 12 Performed By: #### L500.4050 #### [facility] [address] [facility] [place], [address] TIBIA AND FIBULA Observed: 07/20/2018 Status: F Source: [place] 2 VIEWS 8:39 AM [facility] REPOSITORY [facility] Imaging Services [address] [place] [address] Tibia AND Fibula 2 Views MR#: [id number] Acct: [id number] Name: MARYCHUY GRAYSON Rep #: [id number] : 1950 M 68 From: Jose Solo MD PCP: Jerson Salmeron III, MD Status: REG ER Study: Tibia AND Fibula 2 Views Date of Exam: 07/20/18 Exam# [id number] Ordering Dr: Jose A Caraballo MD STUDY: X-RAY - LEFT TIBIA AND FIBULA REASON FOR EXAM: Male, 68 years old. Recent fall, history of proximal fibular fracture. TECHNIQUE: 4 view(s) of the tibia and fibula were obtained. COMPARISON: 07/02/2018.. FINDINGS: Osteopenia. There is no visible acute fracture. Soft tissues unremarkable. Mild DJD of the knee. RAD/Tibia AND Fibula 2 Views IMPRESSION: No evidence of acute injury. Electronically Signed: Jose Solo MD at 9:22 EST Tel , Service support , CC: Jerson Salmeron III, MD; Jose A Caraballo MD Barrel Burner: Signed EMERGENCY DEPARTMENT Observed: 07/02/2018 Status: F Source: [place] SUMMARY 11:43 PM [facility] REPOSITORY [facility] Medical Records Department [address] [place] [address] Emergency Department Summary 07/02/18 2044 MR#: [id number] Acct: [id number] Name: MARYCHUY GRAYSON Rep #: [id number] : 1950 67 From: Kelly Tan MD PCP: Jerson Salmeron III, MD Status: DEP ER - ER Visit Summary Date of Service: 07/02/18 Chief Complaint: Left knee and lower leg pain History of Present Illness: The patient is a 67 M who presents for evaluation of injury to the left knee and lower leg after a fall that occurred 12 days ago. Patient states he slipped and fell down approximately 5 stairs 12 days ago. He injured his left knee with radiation of pain down the lateral side of the leg to the ankle. It is worse with walking. He has been ambulating on it due to his living conditions and no choice but to walk. He has been able to weight-bear but with pain. He has been using ibuprofen for pain with some improvement. However he was concerned he was taking too much ibuprofen and thus has reduced his dose to 600 mg at bedtime. He was taking 600 mg 3 times a day for 4 days. He denies any other injuries. He has a history of diabetes and stage III chronic kidney disease. He is not on any blood thinners. Physical Examination: Vital signs: afebrile, hemodynamically stable, no hypoxia on room air General: well nourished, well developed, in no distress Skin: warm, dry, no rash, no pallor HEENT: normocephalic and atraumatic; PERRL, EOMI, moist mucous membranes Cardiovascular: regular rate and rhythm Respiratory: No increased work of breathing MSK: Moves all extremities, no pelvic tenderness, negative logroll bilaterally, patient able to lift both legs and full extension of the bed. No deformities, normal strength, tenderness to palpation of the left fibular head, healing contusion noted over the left lateral malleolus and left lateral proximal foot, no tenderness to palpation of the bilateral malleoli, anterior or posterior. Full inversion and eversion of the foot with mild pain with inversion. No tenderness to palpation of the navicular head or fifth metatarsal base. No tenderness to the dorsum of the foot. DP pulses are 2+ and symmetric. Neuro: Awake and alert, oriented 4. No facial droop, sensation and motor function intact and symmetric Test Results: Medications Given Discontinued Medications Acetaminophen (Tylenol) 1,000 mg PO X1 ONE Stop: 07/02/18 20:45 Last Admin: 07/02/18 20:49 Dose: 1,000 mg Clinical Impression(s) from Imaging Studies Knee X-Ray 07/02/18 20:44 IMPRESSION: 1. Nondisplaced fracture of the proximal fibular shaft. 2. Degenerative changes of the left knee. Electronically Signed: Basil Mon DO at 21:55 EST Tel [phone], Service support , Tibia/Fibula X-Ray 07/02/18 20:44 IMPRESSION: Oblique fracture at the proximal shaft of the fibula. Electronically Signed: Michael Harrison DO at 22:02 EST Tel [phone], Service support , Ankle X-Ray 07/02/18 21:00 IMPRESSION: No acute bony injury of the ankle. Electronically Signed: Michael Harrison DO at 21:58 EST Tel [phone], Service support , Emergency Department Course and Treatment: Patient was given Tylenol for pain. Imaging was performed of the left lower extremity from the knee down to the ankle. Patient had a nondisplaced fracture of the proximal fibula, with no fracture noted to the tibia, distal fibula, ankle or knee. Patient had no widening of the ankle mortise or any other findings on physical exam or x-ray to be concerning for syndesmotic tear that would be indicative of a [place] fracture. Patient is already 12 days status post fracture and has been weightbearing as entire time. We discussed splinting or other supportive mechanism to help with pain, and patient declined any further treatment. He was given a prescription for Tylenol to use for pain. Patient was discharged home. Treatment Plan: [] Disposition: [] Impression: Isolated proximal left nondisplaced radial fracture This note was generated with Tamr dictation software. It may contain incorrect words, spelling, and punctuation that were not noted in review of the chart prior to signing ED Disposition - Plan for ED Patient: Disposition: Home or Assisted Living Chief Complaint: Lower Extremity Injury Instructions: ED Fx Lower Ext Prescriptions: RX: Acetaminophen [Tylenol Tablet] 325 - 650 mg PO Q6H PRN PRN #60 tab PRN Reason: Pain Referrals: Jerson Salmeron III, MD [Primary Care Provider] - 1 Week if not improving Additional Instructions: You have a fracture of your upper fibula, which is the leg bone on the outside of your leg just below your knee. Please use the Tylenol as prescribed for pain. Rest the leg and keep it elevated when possible. You may apply ice to the area to help with pain. Apply ice for 15 minutes 3 times a day as needed. Follow-up with your doctor if you continue to have issues with leg pain. If you have any worsening of your condition or any new concerning symptoms, please return immediately to the emergency department for another evaluation. What to do if you have Problems For any increased pain, shortness of breath, bleeding, nausea or vomiting, chest pain, or any unexpected problems, contact your Primary Care Provider. Call [facility] ([phone]) or report to the closest Emergency Room. Call 911 if necessary. 07/02/18 2343 <Electronically signed by Kelly Tan MD> Date Kelly Tan MD Cosigner Signature (If Indicated): Date CC: Jerson Salmeron III, MD DISCHARGE INSTRUCTION Observed: 07/02/2018 Status: F Source: [place] 11:31 PM [facility] REPOSITORY [facility] Medical Records Department [address] [place] [address] Discharge Instruction 07/02/18 2255 MR#: [id number] Acct: [id number] Name: MARYCHUY GRAYSON Rep #: [id number] : 1950 67 From: Kelly Tan MD PCP: Jerson Salmeron III, MD Status: DEP ER ED Disposition - Plan for ED Patient: Disposition: Home or Assisted Living Chief Complaint: Lower Extremity Injury Instructions: ED Fx Lower Ext Prescriptions: Acetaminophen [Tylenol Tablet] 325 - 650 mg PO Q6H PRN PRN #60 tab PRN Reason: Pain Referrals: Jerson Salmeron III, MD [Primary Care Provider] - 1 Week if not improving Additional Instructions: You have a fracture of your upper fibula, which is the leg bone on the outside of your leg just below your knee. Please use the Tylenol as prescribed for pain. Rest the leg and keep it elevated when possible. You may apply ice to the area to help with pain. Apply ice for 15 minutes 3 times a day as needed. Follow-up with your doctor if you continue to have issues with leg pain. If you have any worsening of your condition or any new concerning symptoms, please return immediately to the emergency department for another evaluation. What to do if you have Problems For any increased pain, shortness of breath, bleeding, nausea or vomiting, chest pain, or any unexpected problems, contact your Primary Care Provider. Call [facility] ([phone]) or report to the closest Emergency Room. Call 911 if necessary. 07/02/18 2331 <Electronically signed by Kelly Tan MD> Date Kelly Tan MD Cosigner Signature (If Indicated): Date CC: Jerson Salmeron III, MD KNEE 3 VIEWS Observed: 07/02/2018 Status: F Source: [place] 8:45 PM [facility] REPOSITORY [facility] Imaging Services [address] [place] [address] Knee 3 Views MR#: [id number] Acct: [id number] Name: MARYCHUY GRAYSON Rep #: [id number] : 1950 67 From: Basil Mon DO PCP: Jerson Salmeron III, MD Status: REG ER Study: Knee 3 Views Date of Exam: 07/02/18 Exam# [id number] Ordering Dr: Kelly Tan MD STUDY: X-RAY - LEFT KNEE REASON FOR EXAM: Male, 67 years old. Fall. Left leg pain. TECHNIQUE: 3 view(s) of the knee. COMPARISON: None. FINDINGS: Normal visualized distal femur. Normal visualized proximal tibia and fibula. Normal proximal tibiofibular articulation. There is a nondisplaced oblique fracture through the proximal fibular shaft. No other fracture or dislocation is seen.. There is mild degenerative arthrosis of the medial femorotibial compartment. There is moderate degenerative arthrosis of the lateral femorotibial compartment with moderate joint space narrowing. There is moderate degenerative arthrosis of the patellofemoral articulation. There is no demonstrated joint effusion. The soft tissue structures are unremarkable. RAD/Knee 3 Views IMPRESSION: 1. Nondisplaced fracture of the proximal fibular shaft. 2. Degenerative changes of the left knee. Electronically Signed: Basil Mon DO at 21:55 EST Tel [phone], Service support , CC: Jerson Salmeron III, MD; Kelly Tan MD Barrel Burner: Signed ANKLE MIN 3 VIEWS Observed: 07/02/2018 Status: F Source: [place] 8:45 PM [facility] REPOSITORY [facility] Imaging Services [address] [place] [address] Ankle min 3 Views MR#: [id number] Acct: [id number] Name: MARYCHUY GRAYSON Rep #: [id number] : 1950 M 67 From: Michael Harrison DO PCP: Jerson Salmeron III, MD Status: REG ER Study: Ankle min 3 Views Date of Exam: 07/02/18 Exam# [id number] Ordering Dr: Kelly Tan MD STUDY: X-RAY - LEFT ANKLE REASON FOR EXAM: Male, 67 years old. Fall TECHNIQUE: 3 view(s) of the ankle. COMPARISON: None. FINDINGS: Normal visualized distal tibia and fibula. Normal medial and lateral malleoli. Normal tibiotalar articulation and ankle mortise. Normal visualized talus and calcaneus. Calcaneal spurring. The visualized subtalar, talonavicular, calcaneocuboid and tarsal articulations are normal. The soft tissue structures are unremarkable. RAD/Ankle min 3 Views IMPRESSION: No acute bony injury of the ankle. Electronically Signed: Michael Harrison DO at 21:58 EST Tel [phone], Service support , CC: Jerson Salmeron III, MD; Kelly Tan MD Barrel Burner: Signed TIBIA AND FIBULA Observed: 07/02/2018 Status: F Source: [place] 2 VIEWS 8:45 PM [facility] REPOSITORY [facility] Imaging Services [address] [place] [address] Tibia AND Fibula 2 Views MR#: [id number] Acct: [id number] Name: MARYCHUY GRAYSON Rep #: [id number] : 1950 67 From: Michael Harrison DO PCP: Jerson Salmeron III, MD Status: REG ER Study: Tibia AND Fibula 2 Views Date of Exam: 07/02/18 Exam# [id number] Ordering Dr: Kelly Tan MD STUDY: X-RAY - LEFT TIBIA AND FIBULA REASON FOR EXAM: Male, 67 years old. Pain, fall TECHNIQUE: 4 view(s) of the tibia and fibula were obtained. COMPARISON: None. FINDINGS: Normal visualized tibia. There is an oblique lucency at the proximal shaft of the fibula. Mild degenerative changes at the knee. The soft tissue structures are unremarkable. RAD/Tibia AND Fibula 2 Views IMPRESSION: Oblique fracture at the proximal shaft of the fibula. Electronically Signed: Michael Harrison DO at 22:02 EST Tel [phone], Service support , CC: Jerson Salmeron III, MD; Kelly Tan MD Barrel Burner: Signed CNPN Observed: 05/15/2018 Status: COMPLETED Source: [place] 12:00 AM [facility] REPOSITORY Telephone (MANDYWST) MARYCHUY GRAYSON ([id number]) 1950 M Date Time Provider Department 05/15/18 PAVAN SOUSA (SW) During your visit today, we recorded the following information about you: ALIYA Miles-GEN 05/15/2018 9:37 AM Signed Ken and patient discussed food assistance need. Patient states that he was able to duarte some change that he had and able to buy some bologna and bread. 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 Sw noted that she will check with [employer] and see if they provide food delivery. Sw looking at [employer] and possibility of help with cost through patient medicaid plan. LOUISA Miles 05/17/2018 11:03 AM Signed Ken spoke with patient and he will see if he is eligible for or already has a manager case management through his Medicaid. Patient will call [facility] and see about manager case management and will see if he is eligible for home delivered meals through [employer]. Patient states that he will let Sw know what he finds out. Sw had checked with [employer] and they no longer provide food assistance to the community. LOUISA Miels 05/21/2018 11:21 AM Signed Patient said that he was told that now that he has [facility] he can no longer have Medicaid. Patient will call his Medicaid and see if his plan is still active. Allergies As of Date: 05/15/2018 (No Known Allergies) Date Reviewed: 04/30/2018 Reviewed by: Emelia Sherwood LPN - Fully Assessed Reason for Visit: Social Work Services [507] Prescriptions as of 05/15/2018 Sig: LORAZEPAM 1 MG TABLET Take 1 tablet by mouth every * LORAZEPAM 1 MG TABLET Take 1 tablet by mouth every * LORAZEPAM 1 MG TABLET Take 1 tablet by mouth every * DICYCLOMINE 10 MG CAPSULE 10mg by mouth before meals an* CITALOPRAM 20 MG TABLET Take 1 tablet by mouth once d* MIRTAZAPINE 45 MG TABLET Take 1 tablet by mouth daily * PIOGLITAZONE 45 MG TABLET TAKE 1 TABLET EVERY DAY METFORMIN 500 MG TABLET 500mg once/day at supper. METOPROLOL SUCCINATE ER 25 MG* Take 1 tablet by mouth once d* LORAZEPAM 1 MG TABLET Take 1 tablet by mouth every * X LISINOPRIL 10 MG TABLET TAKE 1 TABLET EVERY DAY X SIMVASTATIN 20 MG TABLET TAKE 1 TABLET AT BEDTIME Patient taking differently: TAKE 2 TABLET AT BEDTIME GLIMEPIRIDE 4 MG TABLET Take 1 tablet by mouth twice * UNILET SUPER THIN LANCETS 30 * test blood sugar twice a day.* SITAGLIPTIN 50 MG TABLET Take 1 tablet by mouth once d* BLOOD SUGAR DIAGNOSTIC STRIPS Test blood sugars two times d* Problem List As Of Date 05/15/2018 Noted Resolved BENIGN HYPERTENSION [I10] INVALID FOR* Type 2 diabetes mellitus with stage 3 chronic k*INVALID FOR* Hyperkalemia [E87.5] INVALID FOR*09/15/2016 Chronic anxiety [F41.9] INVALID FOR* Hyperlipidemia LDL goal <100 [E78.5] INVALID FOR* Chronic midline low back pain without sciatica *INVALID FOR* Irritable bowel syndrome with diarrhea [K58.0] INVALID FOR* Recurrent major depressive disorder, in partial*INVALID FOR* Encounter Status:Closed by PAVAN CARRASQUILLO on 05/17/18 EMILEE Observed: 05/13/2018 Status: COMPLETED Source: [place] 12:00 AM [facility] RE[facility]IT[facility] MARYCHUY GRAYSON ([id number]) 1950 M Date Time Provider Department 05/13/18 [facility] SALMERON III [facility] During your visit today, we recorded the following information about you: Kelli Lorenzo RN 05/13/2018 4:08 PM Signed Patient calling to ask how frequently he can take Bentyl for diarrhea. Advised patient he should take with meals and every 6 hours as needed. Patient states he has no food but took one this morning with 1/2 piece of bread because that is the only food he has in his house. He has a half a loaf of bread until the beginning of next month. He says he has no one to call to help him out. Talked to him about [facility] but he says he has no transportation to get there. Asked him if he ever had Meals on Wheels? He said he can't afford it. Advised patient I will send note to PCP and Pavan Rn Clinical. Kelli Salmeron III MD 05/13/2018 5:52 PM Signed he may take bentyl 4 times/day as needed. It does not need to be taken with food. He should have surgical referral for colonoscopy to look for pathology. Last colonoscopy 2007 DAMIEN Mathis MD, CMA, [place] 05/13/2018 5:56 PM Signed Patient notified, voiced understanding. He will let us know when he is ready for his colonoscopy. LIGIA Diamond RN, RN 05/15/2018 4:08 PM Signed Pt calls again, asking about instructions for Bentyl. States he still has a little bit of diarrhea. Advised pt to take before meals and at bedtime, if needed. Advised pt of a bland diet and increase fluid intake. Pt states he does not feel weak or dehydrated. Advised pt if viral, can take several days to work out of system. Advised pt to call office back if diarrhea not resolving. Pt verbalized understanding. Allergies As of Date: 05/13/2018 (No Known Allergies) Date Reviewed: 04/30/2018 Reviewed by: Emelia Sherwood LPN - Fully Assessed Reason for Visit: Medication Question [9258] Primary Visit Diagnosis:Diarrhea, unspecified type [R19.7] Order(s):CONSULT TO GENERAL SURGERY [9063] Order #: [id number]: 1 Prescriptions as of 05/13/2018 Sig: LORAZEPAM 1 MG TABLET Take 1 tablet by mouth every * LORAZEPAM 1 MG TABLET Take 1 tablet by mouth every * LORAZEPAM 1 MG TABLET Take 1 tablet by mouth every * DICYCLOMINE 10 MG CAPSULE 10mg by mouth before meals an* CITALOPRAM 20 MG TABLET Take 1 tablet by mouth once d* MIRTAZAPINE 45 MG TABLET Take 1 tablet by mouth daily * PIOGLITAZONE 45 MG TABLET TAKE 1 TABLET EVERY DAY METFORMIN 500 MG TABLET 500mg once/day at supper. METOPROLOL SUCCINATE ER 25 MG* Take 1 tablet by mouth once d* LORAZEPAM 1 MG TABLET Take 1 tablet by mouth every * LISINOPRIL 10 MG TABLET TAKE 1 TABLET EVERY DAY SIMVASTATIN 20 MG TABLET TAKE 1 TABLET AT BEDTIME Patient taking differently: TAKE 2 TABLET AT BEDTIME GLIMEPIRIDE 4 MG TABLET Take 1 tablet by mouth twice * UNILET SUPER THIN LANCETS 30 * test blood sugar twice a day.* SITAGLIPTIN 50 MG TABLET Take 1 tablet by mouth once d* BLOOD SUGAR DIAGNOSTIC STRIPS Test blood sugars two times d* Problem List As Of Date 05/13/2018 Noted Resolved BENIGN HYPERTENSION [I10] INVALID FOR* Type 2 diabetes mellitus with stage 3 chronic k*INVALID FOR* Hyperkalemia [E87.5] INVALID FOR*09/15/2016 Chronic anxiety [F41.9] INVALID FOR* Hyperlipidemia LDL goal <100 [E78.5] INVALID FOR* Chronic midline low back pain without sciatica *INVALID FOR* Irritable bowel syndrome with diarrhea [K58.0] INVALID FOR* Recurrent major depressive disorder, in partial*INVALID FOR* Encounter Status:Closed by GAGAN BARBOZA CMA on 05/13/18 PROGRESS Observed: 04/30/2018 Status: COMPLETED Source: [place] 10:49 AM [facility] REPOSITORY [facility] ID: [id number] Author: Jerson Salmeron III Service: (none) Author Type: Physician Type: Progress Notes Filed: 04/30/2018 12:28 PM Note Text: SUBJECTIVE: This is a 67 year old male that is here today for Chronic Medical Conditions. 1. diabetes mellitus-fair diet . Some walking. No hypoglycemia 2. hypertension--tolerates medication well 3. hyperlipidemia--tolerates medication well 4. ch anxiety/depression--using ativan 2-3 /day. with benefit. Celexa and Remeron working well. 5. IBS with diarrhea. Using immodium but has to pay out of pocket. Has little money. PAST MEDICAL HISTORY Diagnosis Date - Chronic midline low back pain without sciatica 01/28/2018 - Depressive disorder, not elsewhere classified - DIABETES MELLITUS TYPE II UNCONTR UNCOMPL 06/23/2005 - Diverticulosis of colon (without mention of hemorrhage) - Internal hemorrhoids without mention of complication - Other unspecified back disorder hx of back injury - Type 2 diabetes mellitus with stage 3 chronic kidney disease (HCC) 07/06/2015 - Unspecified constipation Current Outpatient Prescriptions on File Prior to Visit: citalopram (CELEXA) 20 mg tablet Take 1 tablet by mouth once daily. mirtazapine (REMERON) 45 mg tablet Take 1 tablet by mouth daily at bedtime. pioglitazone (ACTOS) 45 mg tablet TAKE 1 TABLET EVERY DAY metFORMIN (GLUCOPHAGE) 500 mg tablet 500mg once/day at supper. metoprolol succinate ER (TOPROL XL) 25 mg 24 hr tablet Take 1 tablet by mouth once daily. LORazepam (ATIVAN) 1 mg tablet Take 1 tablet by mouth every 8 hours as needed for up to 30 days. lisinopril (ZESTRIL, PRINIVIL) 10 mg tablet TAKE 1 TABLET EVERY DAY simvastatin (ZOCOR) 20 mg tablet TAKE 1 TABLET AT BEDTIME (Patient taking differently: TAKE 2 TABLET AT BEDTIME) glimepiride (AMARYL) 4 mg tablet Take 1 tablet by mouth twice daily with meals. UNILET SUPER THIN LANCETS 30 gauge misc test blood sugar twice a day.dx:250.02 insulin:no sitaGLIPtin (JANUVIA) 50 mg tablet Take 1 tablet by mouth once daily. blood sugar diagnostic (FREESTYLE LITE STRIPS) test strip Test blood sugars two times daily E11.22 LORazepam (ATIVAN) 1 mg tablet Take 1 tablet by mouth every 8 hours as needed for up to 30 days. No current facility-administered medications on file prior to visit. / FAMILY HISTORY Problem Relation Age of Onset - Diabetes Father - Cancer Mother unknown - Cancer Brother esophagus - Heart Father Social History Substance Use Topics - Smoking status: Former Smoker Packs/day: 1.00 Years: 30.00 Types: Cigarettes Quit date: 06/27/2012 - Smokeless tobacco: Never Used - Alcohol use No BP 122/60 (BP Site: Right Arm, BP Position: Sitting, BP Cuff Size: Large Adult) Pulse 96 Temp (!) 35.6 ?C (96.1 ?F) (Left Tympanic) Resp 18 Wt 94 kg (207 lb 3.2 oz) BMI 29.31 kg/m? . OBJECTIVE: APPEARANCE Well appearing, alert, in no acute distress, well-hydrated, well nourished. and Appearance: well dressed well groomed, cooperative and pleasant Behavior: good eye contact Speech: fluent and coherent Mood: euthymic Affect: appropriate Perceptions: none Thought process: goal directed Thought Content: normal Intelligence level: normal Insight: fair Judgment: good Lab Results for MARYCHUY GRAYSON ( ) as of 04/30/2018 10:50 Ref. Range 04/25/2018 10:23 Sodium Latest Ref Range: 136 - 144 mmol/L 139 Potassium Latest Ref Range: 3.7 - 5.1 mmol/L 4.8 Chloride Latest Ref Range: 97 - 105 mmol/L 102 CO2 Latest Ref Range: 22 - 30 mmol/L 21 (L) BUN Latest Ref Range: 9 - 24 mg/dL 27 (H) Creatinine Latest Ref Range: 0.73 - 1.22 mg/dL 1.52 (H) Glucose Latest Ref Range: 74 - 99 mg/dL 272 (H) Protein, Total Latest Ref Range: 6.3 - 8.0 g/dL 7.5 Calcium Latest Ref Range: 8.5 - 10.2 mg/dL 9.6 Albumin Latest Ref Range: 3.9 - 4.9 g/dL 4.1 Bilirubin, Total Latest Ref Range: 0.2 - 1.3 mg/dL 0.4 Alkaline Phosphatase Latest Ref Range: 38 - 113 U/L 62 ALT Latest Ref Range: 10 - 54 U/L 19 AST Latest Ref Range: 14 - 40 U/L 19 Anion Gap Latest Ref Range: 9 - 18 mmol/L 16 eGFR- Unknown 56 eGFR-All Other Races Latest Units: . 46 Cholesterol, Total Latest Ref Range: <200 mg/dL 143 Triglyceride Latest Ref Range: <150 mg/dL 239 (H) Fasting Time Latest Units: hrs 18 HDL Cholesterol Latest Ref Range: >39 mg/dL 38 (L) LDL Cholesterol Latest Ref Range: <100 mg/dL 57 VLDL Cholesterol Latest Ref Range: <30 mg/dL 48 (H) TC:HDL Ratio Latest Ref Range: <5.10 3.76 LDL:HDL Ratio Latest Ref Range: <2.54 1.50 Non HDL Cholesterol Latest Ref Range: <130 mg/dL 105 Hematocrit Latest Ref Range: 39.0 - 51.0 % 44.4 Hemoglobin A1C Latest Ref Range: 4.3 - 5.6 % 7.5 (H) Estimated Average Glucose Latest Units: mg/dL 169 WBC Latest Ref Range: 3.70 - 11.00 k/uL 6.82 RBC Latest Ref Range: 4.20 - 6.00 m/uL 4.52 Hemoglobin Latest Ref Range: 13.0 - 17.0 g/dL 13.9 Platelet Count Latest Ref Range: 150 - 400 k/uL 223 MCV Latest Ref Range: 80.0 - 100.0 fL 98.2 MCH Latest Ref Range: 26.0 - 34.0 pG 30.8 MCHC Latest Ref Range: 30.5 - 36.0 g/dL 31.3 MPV Latest Ref Range: 9.0 - 12.7 fL 10.6 RDW-CV Latest Ref Range: 11.5 - 15.0 % 14.2 Absolute nRBC Latest Ref Range: <0.01 k/uL <0.01 ASSESSMENT: depression--well controlled ch anxiety--well controlled diabetes mellitus--improved but not yet at goal hypertension--at goal hyperlipidemia--at goal IBS with diarrhea Chronic long-term prescribed benzodiazepine use?stable use PLAN: better, diabetic, healthy weight losing diet and regular exercise eat less sugar, bread, potato, pasta, rice, corn, corn syrup, saturated fats same medications dicyclomine 10mg before meals and every 6 hrs as needed for diarrhea return to office with labs in 6 mos Jerson Salmeron III MD PDMP website checked and validated. All prescriptions have been APPROPRIATELY filled. No suspicious activity was identified. 04/30/2018 by Jerson Salmeron III MD CNOV Observed: 04/30/2018 Status: COMPLETED Source: [place] 10:00 AM [facility] REPOSITORY Office Visit ([facility]) MARYCHUY GRAYSON ([id number]) 1950 M Date Time Provider Department 04/30/18 10:00 AM JERSON SALMERON III During your visit today, we recorded the following information about you: Temperature Pulse Respiration Blood pressure 96.1 degrees 96/minute 18/minute 122/60 Weight 94 kg Jerson Salmeron III MD 04/30/2018 12:28 PM Signed SUBJECTIVE: This is a 67 year old male that is here today for Chronic Medical Conditions. 1. diabetes mellitus-fair diet . Some walking. No hypoglycemia 2. hypertension--tolerates medication well 3. hyperlipidemia--tolerates medication well 4. ch anxiety/depression--using ativan 2-3 /day. with benefit. Celexa and Remeron working well. 5. IBS with diarrhea. Using immodium but has to pay out of pocket. Has little money. PAST MEDICAL HISTORY Diagnosis Date - Chronic midline low back pain without sciatica 01/28/2018 - Depressive disorder, not elsewhere classified - DIABETES MELLITUS TYPE II UNCONTR UNCOMPL 06/23/2005 - Diverticulosis of colon (without mention of hemorrhage) - Internal hemorrhoids without mention of complication - Other unspecified back disorder hx of back injury - Type 2 diabetes mellitus with stage 3 chronic kidney disease (HCC) 07/06/2015 - Unspecified constipation Current Outpatient Prescriptions on File Prior to Visit: citalopram (CELEXA) 20 mg tablet Take 1 tablet by mouth once daily. mirtazapine (REMERON) 45 mg tablet Take 1 tablet by mouth daily at bedtime. pioglitazone (ACTOS) 45 mg tablet TAKE 1 TABLET EVERY DAY metFORMIN (GLUCOPHAGE) 500 mg tablet 500mg once/day at supper. metoprolol succinate ER (TOPROL XL) 25 mg 24 hr tablet Take 1 tablet by mouth once daily. LORazepam (ATIVAN) 1 mg tablet Take 1 tablet by mouth every 8 hours as needed for up to 30 days. lisinopril (ZESTRIL, PRINIVIL) 10 mg tablet TAKE 1 TABLET EVERY DAY simvastatin (ZOCOR) 20 mg tablet TAKE 1 TABLET AT BEDTIME (Patient taking differently: TAKE 2 TABLET AT BEDTIME) glimepiride (AMARYL) 4 mg tablet Take 1 tablet by mouth twice daily with meals. UNILET SUPER THIN LANCETS 30 gauge misc test blood sugar twice a day.dx:250.02 insulin:no sitaGLIPtin (JANUVIA) 50 mg tablet Take 1 tablet by mouth once daily. blood sugar diagnostic (FREESTYLE LITE STRIPS) test strip Test blood sugars two times daily E11.22 LORazepam (ATIVAN) 1 mg tablet Take 1 tablet by mouth every 8 hours as needed for up to 30 days. No current facility-administered medications on file prior to visit. / FAMILY HISTORY Problem Relation Age of Onset - Diabetes Father - Cancer Mother unknown - Cancer Brother esophagus - Heart Father Social History Substance Use Topics - Smoking status: Former Smoker Packs/day: 1.00 Years: 30.00 Types: Cigarettes Quit date: 06/27/2012 - Smokeless tobacco: Never Used - Alcohol use No BP 122/60 (BP Site: Right Arm, BP Position: Sitting, BP Cuff Size: Large Adult) Pulse 96 Temp (!) 35.6 ?C (96.1 ?F) (Left Tympanic) Resp 18 Wt 94 kg (207 lb 3.2 oz) BMI 29.31 kg/m? . OBJECTIVE: APPEARANCE Well appearing, alert, in no acute distress, well- hydrated, well nourished. and Appearance: well dressed well groomed, cooperative and pleasant Behavior: good eye contact Speech: fluent and coherent Mood: euthymic Affect: appropriate Perceptions: none Thought process: goal directed Thought Content: normal Intelligence level: normal Insight: fair Judgment: good Lab Results for MARYCHUY GRAYSON ( ) as of 04/30/2018 10:50 Ref. Range 04/25/2018 10:23 Sodium Latest Ref Range: 136 - 144 mmol/L 139 Potassium Latest Ref Range: 3.7 - 5.1 mmol/L 4.8 Chloride Latest Ref Range: 97 - 105 mmol/L 102 CO2 Latest Ref Range: 22 - 30 mmol/L 21 (L) BUN Latest Ref Range: 9 - 24 mg/dL 27 (H) Creatinine Latest Ref Range: 0.73 - 1.22 mg/dL 1.52 (H) Glucose Latest Ref Range: 74 - 99 mg/dL 272 (H) Protein, Total Latest Ref Range: 6.3 - 8.0 g/dL 7.5 Calcium Latest Ref Range: 8.5 - 10.2 mg/dL 9.6 Albumin Latest Ref Range: 3.9 - 4.9 g/dL 4.1 Bilirubin, Total Latest Ref Range: 0.2 - 1.3 mg/dL 0.4 Alkaline Phosphatase Latest Ref Range: 38 - 113 U/L 62 ALT Latest Ref Range: 10 - 54 U/L 19 AST Latest Ref Range: 14 - 40 U/L 19 Anion Gap Latest Ref Range: 9 - 18 mmol/L 16 eGFR- Unknown 56 eGFR-All Other Races Latest Units: . 46 Cholesterol, Total Latest Ref Range: <200 mg/dL 143 Triglyceride Latest Ref Range: <150 mg/dL 239 (H) Fasting Time Latest Units: hrs 18 HDL Cholesterol Latest Ref Range: >39 mg/dL 38 (L) LDL Cholesterol Latest Ref Range: <100 mg/dL 57 VLDL Cholesterol Latest Ref Range: <30 mg/dL 48 (H) TC:HDL Ratio Latest Ref Range: <5.10 3.76 LDL:HDL Ratio Latest Ref Range: <2.54 1.50 Non HDL Cholesterol Latest Ref Range: <130 mg/dL 105 Hematocrit Latest Ref Range: 39.0 - 51.0 % 44.4 Hemoglobin A1C Latest Ref Range: 4.3 - 5.6 % 7.5 (H) Estimated Average Glucose Latest Units: mg/dL 169 WBC Latest Ref Range: 3.70 - 11.00 k/uL 6.82 RBC Latest Ref Range: 4.20 - 6.00 m/uL 4.52 Hemoglobin Latest Ref Range: 13.0 - 17.0 g/dL 13.9 Platelet Count Latest Ref Range: 150 - 400 k/uL 223 MCV Latest Ref Range: 80.0 - 100.0 fL 98.2 MCH Latest Ref Range: 26.0 - 34.0 pG 30.8 MCHC Latest Ref Range: 30.5 - 36.0 g/dL 31.3 MPV Latest Ref Range: 9.0 - 12.7 fL 10.6 RDW-CV Latest Ref Range: 11.5 - 15.0 % 14.2 Absolute nRBC Latest Ref Range: <0.01 k/uL <0.01 ASSESSMENT: depression--well controlled ch anxiety--well controlled diabetes mellitus--improved but not yet at goal hypertension--at goal hyperlipidemia--at goal IBS with diarrhea Chronic long-term prescribed benzodiazepine use?stable use PLAN: better, diabetic, healthy weight losing diet and regular exercise eat less sugar, bread, potato, pasta, rice, corn, corn syrup, saturated fats same medications dicyclomine 10mg before meals and every 6 hrs as needed for diarrhea return to office with labs in 6 mos Jerson Salmeron III MD PDMP website checked and validated. All prescriptions have been APPROPRIATELY filled. No suspicious activity was identified. 04/30/2018 by DAMIEN Mathis MD, III MD 04/30/2018 11:03 AM Signed PLAN: better, diabetic, healthy weight losing diet and regular exercise eat less sugar, bread, potato, pasta, rice, corn, corn syrup, saturated fats same medications dicyclomine 10mg before meals and every 6 hrs as needed for diarrhea return to office with labs in 6 mos Jerson Salmeron III MD Referring Provider: JERSON SALMERON III [[id number]] Allergies As of Date: 04/30/2018 (No Known Allergies) Date Reviewed: 04/30/2018 Reviewed by: Emelia Sherwood LPN - Fully Assessed Reason for Visit: Recheck [92] Cmt: Diabetes Recheck [92] Cmt: Labs Recheck [92] Cmt: Depression Primary Visit Diagnosis:Type 2 diabetes mellitus with stage 3 chronic kidney disease, without long-term current use of insulin (HCC) [E11.22, N18.3] Other Visit Diagnoses:Essential hypertension, benign [I10] Chronic anxiety [F41.9] Hyperlipidemia LDL goal <100 [E78.5] Irritable bowel syndrome with diarrhea [K58.0] Recurrent major depressive disorder, in partial remission (HCC) [F33.41] Order(s):[START ON 06/13/2018] LORazepam (ATIVAN) 1 mg tabletTake 1 tablet by mouth every 8 hours as needed for Anxiety for up to 30 days.Disp: 90 tabletRfl: 0 [START ON 05/13/2018] LORazepam (ATIVAN) 1 mg tabletTake 1 tablet by mouth every 8 hours as needed for Anxiety for up to 30 days.Disp: 90 tabletRfl: 0 [START ON 07/13/2018] LORazepam (ATIVAN) 1 mg tabletTake 1 tablet by mouth every 8 hours as needed for Anxiety for up to 30 days.Disp: 90 tabletRfl: 0 dicyclomine (BENTYL) 10 mg [id number] by mouth before meals and every 6 hrs as needed for diarrheaDisp: 100 capsuleRfl: 2 ALBUMIN/CREAT RATIO RND UR [SQUACR] Order #: [id number] FUTURE HGB A1C [BQYCH5I] Order #: [id number] FUTURE LIPID PANEL BASIC [SQLIPB] Order #: [id number] FUTURE COMP METABOLIC PANEL [SQCMP] Order #: [id number] FUTURE Prescriptions as of 04/30/2018 Sig: CITALOPRAM 20 MG TABLET Take 1 tablet by mouth once d* MIRTAZAPINE 45 MG TABLET Take 1 tablet by mouth daily * PIOGLITAZONE 45 MG TABLET TAKE 1 TABLET EVERY DAY METFORMIN 500 MG TABLET 500mg once/day at supper. METOPROLOL SUCCINATE ER 25 MG* Take 1 tablet by mouth once d* LORAZEPAM 1 MG TABLET Take 1 tablet by mouth every * LISINOPRIL 10 MG TABLET TAKE 1 TABLET EVERY DAY SIMVASTATIN 20 MG TABLET TAKE 1 TABLET AT BEDTIME Patient taking differently: TAKE 2 TABLET AT BEDTIME GLIMEPIRIDE 4 MG TABLET Take 1 tablet by mouth twice * UNILET SUPER THIN LANCETS 30 * test blood sugar twice a day.* SITAGLIPTIN 50 MG TABLET Take 1 tablet by mouth once d* BLOOD SUGAR DIAGNOSTIC STRIPS Test blood sugars two times d* LORAZEPAM 1 MG TABLET Take 1 tablet by mouth every * LORAZEPAM 1 MG TABLET Take 1 tablet by mouth every * LORAZEPAM 1 MG TABLET Take 1 tablet by mouth every * DICYCLOMINE 10 MG CAPSULE 10mg by mouth before meals an* Medication notes this encounter METOPROLOL SUCCINATE ER 25 MG TABLET,EXTENDED RELEASE 24 HR >> Jerson Salmeron III MD 04/30/2018 10:53 AM >> JERSON SALMERON III, MD Apr 30, 2018 10:53 AM Patient is taking metoprolol Jerson Salmeron III MD Problem List As Of Date 04/30/2018 Noted Resolved BENIGN HYPERTENSION [I10] INVALID FOR* Type 2 diabetes mellitus with stage 3 chronic k*INVALID FOR* Hyperkalemia [E87.5] INVALID FOR*09/15/2016 Chronic anxiety [F41.9] INVALID FOR* Hyperlipidemia LDL goal <100 [E78.5] INVALID FOR* Chronic midline low back pain without sciatica *INVALID FOR* Irritable bowel syndrome with diarrhea [K58.0] INVALID FOR* Recurrent major depressive disorder, in partial*INVALID FOR* Other instructions from your clinician: PLAN: better, diabetic, healthy weight losing diet and regular exercise eat less sugar, bread, potato, pasta, rice, corn, corn syrup, saturated fats same medications dicyclomine 10mg before meals and every 6 hrs as needed for diarrhea return to office with labs in 6 mos Jerson Salmeron III MD Prescriptions ordered this encounter Disp Refills Start End LORAZEPAM 1 MG TABLET 90 t* 0 06/13/2018 07/13/2018 Class: Print RX Route: ORAL Sig: Take 1 tablet by mouth every 8 hours as needed for Anxiety for up to 30 days. LORAZEPAM 1 MG TABLET 90 t* 0 05/13/2018 06/12/2018 Class: Print RX Route: ORAL Sig: Take 1 tablet by mouth every 8 hours as needed for Anxiety for up to 30 days. LORAZEPAM 1 MG TABLET 90 t* 0 07/13/2018 08/12/2018 Class: Print RX Route: ORAL Sig: Take 1 tablet by mouth every 8 hours as needed for Anxiety for up to 30 days. DICYCLOMINE 10 MG CAPSULE 100 * 2 04/30/2018 Simg by mouth before meals and every 6 hrs as needed for diarrhea Medications Discontinued During This Encounter LORazepam (ATIVAN) 1 mg tablet 90 t* 0 03/15/2018 04/30/2018 Class: Print RX Route: ORAL Sig: Take 1 tablet by mouth every 8 hours as needed for up to 30 days. Disc: Course of therapy completed Encounter Status:Closed by JERSON SALMERON III, MD on 04/30/18 PROGRESS Observed: 04/26/2018 Status: COMPLETED Source: [place] 4:04 PM [facility] REPOSITORY HNO ID: [id number] Author: Jerson Salmeron III Service: (none) Author Type: Physician Type: Progress Notes Filed: 04/26/2018 4:04 PM Note Text: diabetic control has improved and lipids are at goal, though renal function has decreased somewhat. We will discuss in more detail at the upcoming appointment. J[facility] Sal[facility]on III, MD, [facility] CBC Collected: 04/25/2018 Status: F Source: [place] 10:23 AM [facility] REPOSITORY TYPE CODE TESTS RESULT OUT OF REFERENCE UNITS RANGE LAB WBC 3.70-11.00 k/uL WBC 6.82 LAB RBC 4.20-6.00 m/uL RBC 4.52 LAB HGB 13.0-17.0 g/dL Hemoglobin 13.9 LAB HCT 39.0-51.0 % Hematocrit 44.4 LAB MCV 80.0-100.0 fL MCV 98.2 LAB MCH 26.0-34.0 pG MCH 30.8 LAB MCHC 30.5-36.0 g/dL MCHC 31.3 LAB RDWCV 11.5-15.0 % RDW-CV 14.2 LAB PLTCT 150-400 k/uL Platelet Count 223 LAB MPV 9.0-12.7 fL MPV 10.6 LAB ABSNUC <0.01 k/uL Absolute nRBC <0.01 Performed By: #### CBC #### [facility] [address] [place], [place] [address] HEMOGLOBIN A1C Collected: 04/25/2018 Status: F Source: [place] 10:23 AM [facility] REPOSITORY TYPE CODE TESTS RESULT OUT OF REFERENCE UNITS RANGE LAB HGBA1C 4.3-5.6 % High Hemoglobin A1c 7.5 LAB HBA0 mg/dL Est. Average Glucose 169 Result Comment: eAG: (Estimated average glucose) is a calculated value from HgbA1c and is traveling representative of the average blood glucose level in the last 2-3 month period. Performed By: #### HBA1C, CMP, LIPB #### [facility] [address] [place] [address] COMP METABOLIC PANEL Collected: 04/25/2018 Status: F Source: [place] 10:23 [facility] REPOSITORY TYPE CODE TESTS RESULT OUT OF REFERENCE UNITS RANGE LAB TP 6.3-8.0 g/dL Protein, Total 7.5 LAB ALB 3.9-4.9 g/dL Albumin 4.1 LAB CA 8.5-10.2 mg/dL Calcium, Total 9.6 LAB TBIL 0.2-1.3 mg/dL Bilirubin, Total 0.4 LAB ALKP 38-113 U/L Alkaline Phosphatase 62 LAB AST 14-40 U/L AST 19 LAB GLU 74-99 mg/dL Glucose High 272 Result Comment: The [place] [employer] (ADA) provides guidance for cutoff values for fasting glucose and random glucose. The ADA defines fasting as no caloric intake for at least 8 hours. Fas ting plasma glucose results between 100 to 125 mg/dL indicate increased risk for diabetes (prediabetes). Fasting plasma glucose results greater than or equal to 126 mg/dL meet the criteria for diagnosis of diabetes. In the absence of unequivocal hyperglycemia, results should be confirmed by repeat testing. In a patient with classic symptoms of hyperglycemia or hyperglycemic crisis, random plasma glucose results greater than or equal to 200 mg/dL meet the criteria for diagnosis of diabetes. Reference: Standards of Medical Care in Diabetes 2016, [place] Diabetes Association. Diabetes Care. 2016.39(Suppl 1). LAB BUN 9-24 mg/dL BUN High 27 LAB CRET 0.73-1.22 mg/dL Creatinine High 1.52 LAB NA 136-144 mmol/L Sodium 139 LAB K 3.7-5.1 mmol/L Potassium 4.8 LAB CL 97-105 mmol/L Chloride 102 LAB CO2 22-30 mmol/L Low CO2 21 LAB AGAP 9-18 mmol/L Anion Gap 16 LAB ALT 10-54 U/L ALT 19 LAB GFRAA eGFR- Amer. 56 LAB GFRNAA . eGFR-All Other Races 46 Result Comment: eGFR (Estimated GFR) Units of measure: mL/min/1.73 meters squared eGFR is derived from the reexpressed MDRD Study equation using the following parameters: serum creatinine, age, gender and race. The creatinine assay has been calibrated to be traceable to IDMS. An eGFR <60 mL/min/1.73m2 for >3 months is consistent with chronic kidney disease. Refer to KDOQI guidelines for clinical interpretation. In patients with unstable renal function, e.g. those with acute kidney injury, the eGFR may not accurately reflect actual GFR. Performed By: #### HBA1C, CMP, LIPB #### [facility] [address] [place], [place] [address] LIPID PANEL, BASIC Collected: 04/25/2018 Status: F Source: [place] 10:23 AM [facility] REPOSITORY TYPE CODE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 NOT GIVENUNK [place] Insurance:SELF PAY [facility] Number: Effective Repository Date:2018-07-02 12/05/2017 MARYCHUY A Primary MARYCHUY A [place] [id number] Insurance:LAVELL PEREZ[facility] [id number] AD[place] Number: Repository [id number]: [phone] [id number] [phone] Date:8301-76-18[address], [place] [address]HS: 12/05/2017 Secondary MARYCHUY A [place] Insurance:MEDICAIDPol FISHMONICAB: [facility] Number: [id number] [id number] Repository Date:2017-12-05 12/05/2017 Tertiary NOT GIVENUNK [place] Insurance:SELF PAY [facility] Number: Effective Repository Date:2017-12-05
== END 2018-07-02 23:06 | disposition home or self-care (01) ==
PROVIDERS: Emergency Provider Emergency Medicine; Family Provider Family Medicine; PCP Family Medicine
DX: S82.832A Other fracture of upper and lower end of left fibula, initial encounter for closed fracture (principal); W10.9XXA Fall (on) (from) unspecified stairs and steps, initial encounter; E11.22 Type 2 diabetes mellitus with diabetic chronic kidney disease; N18.3 Chronic kidney disease, stage 3 (moderate); Z79.84 Long term (current) use of oral hypoglycemic drugs; Z79.899 Other long term (current) drug therapy; Y93.01 Activity, walking, marching and hiking; Y92.009 Unspecified place in unspecified non-institutional (private) residence as the place of occurrence of the external cause; Y99.8 Other external cause status
CPT/HCPCS: 73562; 73590; 73610; 99283

== ENCOUNTER 2018-07-20 08:26 | Emergency (ER) | payer MEDICARE, MEDICAID, SELFPAY ==
[2018-07-20 08:26] VITALS: BP 125/81; PULSE 119; RESP 17; TEMP 36.7; O2SAT 97; BMI 28.7
--- NOTE | 2018-07-20 08:38 | RAD_ITS ---
STUDY: X-RAY - LEFT TIBIA AND FIBULA REASON FOR EXAM: Male, 68 years old. Recent fall, history of proximal fibular fracture. TECHNIQUE: 4 view(s) of the tibia and fibula were obtained. COMPARISON: 07/02/2018.. FINDINGS: Osteopenia. There is no visible acute fracture. Soft tissues unremarkable. Mild DJD of the knee. RAD/Tibia & Fibula 2 Views IMPRESSION: No evidence of acute injury. Electronically Signed: Jose Solo MD at 9:22 EST Tel , Service support ,
--- NOTE | 2018-07-20 08:40 | ED.VISSUMM ---
- ER Visit Summary Date of Service: 07/20/18 Chief Complaint: Diarrhea, leg pain History of Present Illness: The patient is a 68 M with history of anxiety who has recurrent chronic diarrhea presents to the emergency department increasing symptoms. Patient states that he does get diarrhea from time to time. His symptoms were well maintained on Imodium. However, he is on a fixed income and was having difficult time affording it. He was changed to Bentyl. He states that he was using the Bentyl and had some diarrhea on Tatiana that resolved. However, it returned over the past 2 days. He denies any fevers or chills. He has had some mild abdominal cramping. He denies any shortness of breath. He is also complaining of some pain in his left lateral lower leg. He states that he does have a fracture of his fibula. He thought that he was recovering normally. He got up out of his chair and twisted and felt a pop again. Physical Examination: Vital signs reviewed General: Well-nourished, well-developed Head: Normocephalic, atraumatic Eyes: Pupils equal and reactive, extraocular muscles intact Neck, supple, no lymphadenopathy Heart: Regular rate and rhythm Respiratory: No distress, clear bilaterally Abdomen: Soft, nontender, nondistended, no peritoneal signs Back: Nontender Extremities: Nontender, no edema, no cords Skin: Normal color no rash Neuro: Alert and oriented, no focal or lateralizing deficits Test Results: [] Emergency Department Course and Treatment: The patient's diarrhea is more of a chronic issue. He states that the Bentyl was not really controlling it. I did do a rectal exam. He does have a small hemorrhoid. There is no blood. Screening labs obtained. Patient has mild renal insufficiency which is chronic. Otherwise, his labs are unremarkable. Patient given fluids and antiemetics. Is resting comfortably. He has had no diarrhea in the emergency department. I obtained an x-ray of his left fibula that he has a known fracture. There is no evidence of new fracture or distortion of the fracture. On reevaluation, the patient still resting comfortably. He is given Imodium as he states that that has helped his symptoms in the past. At this time, I do feel that he safe for outpatient therapy. He is well hydrated. He has no pain. His work appears unremarkable. He was counseled concerning symptoms and reasons to return. He will be discharged home. Treatment Plan: [] Disposition: Discharge Impression: 1. Diarrhea 2. Left fibula pain status post fracture This note was generated with [employer] dictation software. It may contain incorrect words, spelling, and punctuation that were not noted in review of the chart prior to signing ED Disposition - Plan for ED Patient: Chief Complaint: Diarrhea Instructions: ED Diarrhea Viral Prescriptions: Diphenoxylate/Atrop [Lomotil] 1 tab PO TID PRN PRN #30 tab PRN Reason: Diarrhea Referrals: Jerson Salmeron III, MD [Primary Care Provider] -
[2018-07-20 08:55] VITALS: BP 140/76; PULSE 90; RESP 16; TEMP 36.7; O2SAT 93
[2018-07-20] MEDS: Ondansetron 4 MG/2 ML Vial IV (09:00)
[2018-07-20] MEDS: 0.9% Normal Saline 1,000 ML 1000 ML IV (09:00)
[2018-07-20 09:12] LABS: Absolute Lymphocyte Count 0.79 X10^3/ul (0.83-4.51); Absolute Neutrophil Count 3.4 X10^3/uL (2.0-7.7); Basophil# 0.02 X10^3/uL; Basophil% 0.4 % (0-1); Eosinophil# 0.08 X10^3/uL; Eosinophils% 1.6 % (0-5); Hematocrit 41.8 % (40-54); Hemoglobin 13.6 g/dl (13.0-16.5); Lymphocyte # 0.79 X10^3/ul (4.0); Lymphocyte % 16.3 % (19-41); Mean Corp Hgb Conc 32.5 g/gl (32-36); Mean Corpuscular Hgb 31.3 pg (27.0-32.0); Mean Corpuscular Volume 96.3 fL (80-94); Mean Platelet Vol. 10.4 fl (6.2-12.0); Monocyte# 0.56 X10^3/uL; Monocyte% 11.5 % (0-10); Neutrophil # 3.39 X10^3/uL (2.7-7.7); Neutrophil % 69.8 % (47-70); Platelet Count 131 K/mm3 (150-450); RBC Distribution Width CV 14.8 % (11.6-14.6); Red Blood Count 4.34 M/mm3 (4.6-6.2); White Blood Count 4.9 K/mm3 (4.4-11.0)
[2018-07-20 09:13] LABS: POSITIVE COUNT NO; POSITIVE DIFFERENTIAL NO; POSITIVE MORPHOLOGY NO
[2018-07-20 09:34] LABS: AST(SGOT) 17 U/L (15-37); Alanine Aminotransfer ALT/SGPT 19 U/L (16-61); Albumin, Serum 3.5 g/dL (3.2-5.0); Alkaline Phosphatase 73 U/L (45-117); Anion Gap 12 (5-15); BUN 24 mg/dL (7-18); BUN/Creat Ratio 15.9 RATIO (10-20); Calcium,Total 8.6 mg/dL (8.5-10.1); Chloride 109 mmol/L (98-107); Creatinine, Serum 1.51 mg/dL (0.70-1.30); EST Glomerular Filtration Rate 49 mL/min (>60); Est Glom Filt Rate - Afr Amer 60 mL/min (>60); Estimated Creatinine Clearance 51.25 ml/min; Globulin 3.4 g/dL (2.2-4.2); Glucose 247 mg/dL (74-106); Potassium 3.4 mmol/L (3.5-5.1); Protein, Total 6.9 g/dL (6.4-8.2); Sodium Level 141 mmol/L (136-145)
[2018-07-20 09:35] VITALS: PULSE 89; RESP 16; TEMP 36.7; O2SAT 94
[2018-07-20 10:48] VITALS: BP 129/80; PULSE 88; RESP 16; RESP 18; TEMP 36.4; O2SAT 94
== END 2018-07-20 10:50 | disposition home or self-care (01) ==
PROVIDERS: Emergency Provider Emergency Medicine; Family Provider Family Medicine; PCP Family Medicine
DX: R19.7 Diarrhea, unspecified (principal); M79.662 Pain in left lower leg; S82.402D Unspecified fracture of shaft of left fibula, subsequent encounter for closed fracture with routine healing; E11.9 Type 2 diabetes mellitus without complications; E78.00 Pure hypercholesterolemia, unspecified; I10 Essential (primary) hypertension; Z79.84 Long term (current) use of oral hypoglycemic drugs; Z79.899 Other long term (current) drug therapy; X58.XXXD Exposure to other specified factors, subsequent encounter
CPT/HCPCS: 73590; 80053; 85025; 96361; 96374; 99284; J7030; A4216; J2405

== ENCOUNTER 2021-01-13 02:38 | Emergency (ER) | payer MEDICARE, MEDICAID, SELFPAY ==
[2021-01-13 02:39] VITALS: BP 135/73; PULSE 102; RESP 16; TEMP 36.6; O2SAT 98; BMI 28.1
--- NOTE | 2021-01-13 03:34 | EDS_ITS ---
HPI History of Present Illness Chief Complaint: Anxiety Informant: patient Narrative Narrative: Presents with increasing anxiety due to having diarrhea for the past 5 days. Reports started when he ate a steak for Father's Day. He states since then with every meal he will have loose runny stools. Nonbloody nontarry. Occasional cramping of the abdomen. No fevers. No recent antibiotics. He had loose stools today. He states he is contemplating on seeing his doctor with the diarrhea with anxiety kicked in. He does have a history of this. He is on lorazepam 1 mg twice a day along with Celexa. Denies suicidal homicidal ideations. He is a diabetic he states his sugars were in the 130s when he checked this at home. Denies urinary symptoms. Prior similar symptoms: [facility] Medical History Diabetes Kidney disease Home Medications citalopram 20 mg PO DAILY 07/02/18 [History Last Taken Unknown] glimepiride 4 mg PO BID 07/02/18 [History Last Taken Unknown] lisinopril 10 mg PO DAILY 07/02/18 [History Last Taken Unknown] lorazepam 1 mg PO TID PRN PRN 07/02/18 [History Last Taken Unknown] metformin 500 mg PO BID 07/02/18 [History Last Taken Unknown] mirtazapine 45 mg PO QHS 07/02/18 [History Last Taken Unknown] pioglitazone 45 mg PO DAILY 07/02/18 [History Last Taken Unknown] simvastatin 20 mg PO QHS 07/02/18 [History Last Taken Unknown] sitagliptin [Januvia] 50 mg PO DAILY 07/02/18 [History Last Taken Unknown] diphenoxylate-atropine 1 tab PO TID PRN PRN #30 tab 07/20/18 [Rx Last Taken Unknown] metoprolol succinate 25 mg PO DAILY 07/20/18 [History Last Taken Unknown] dulaglutide [Trulicity] 0.75 mg SUBCUT MO 01/13/21 [History Last Taken Unknown] loperamide [Imodium A-D] 2 mg PO Q6H PRN #20 cap 01/13/21 [Rx Last Taken Unknown] Allergy/AdvReac Type Severity Reaction Status Date / Time No Known Allergies Allergy Verified 01/13/21 02:45 Social History Smoking Status: Former smoker ROS ROS ED Constitutional Constitutional ED: Denies chills, fever(s) or sweats Eyes Eyes: Denies change in vision ENT ENT ED: Denies dysphagia or sore throat Cardiovascular Cardiovascular: Denies chest pain, leg edema, palpitations or racing heartbeat Respiratory/Chest Respiratory/Chest: Denies cough, dyspnea or dyspnea on exertion Gastrointestinal Gastrointestinal: Reports diarrhea; Denies abdominal pain, nausea or vomiting Genitourinary Genitourinary ED: Denies dysuria, hematuria or urinary frequency Musculoskeletal Musculoskeletal: Denies back pain, extremity pain or neck pain Integumentary Denies rash or wounds Neurologic Neurologic: Denies headache(s), paresthesias or weakness Psychiatric Psychiatric: Reports anxiety; Denies suicidal ideation or suicidal thoughts EXAM Physical Exam Const Vital Signs: 01/13/21 02:39 Temperature 97.8 F Temperature Source Temporal Pulse Rate 102 H Respiratory Rate 16 Blood Pressure 135/73 H Blood Pressure Mean 93 Pulse Ox 98 Oxygen Delivery Method Room Air Positive well nourished and well developed General Appearance ED: well developed and NAD HEENT Reports dry mucous membranes normocephalic and atraumatic Mouth ED: Yes dry mucous membranes Mouth: dry mucous membranes Eyes PERRL, EOMs intact bilaterally and conjunctivae normal General Eye ED: Yes normal appearance of both eyes Neck no lymphadenopathy and supple General: Negative for tenderness Chest Wall Chest: Negative for tenderness Resp normal respiratory effort and normal air movement Effort and Inspection: symmetric chest movement; Negative for respiratory distress Cardio regular rate, regular rhythm and no murmurs Peripheral Pulses: pulses 2+ throughout GI normal to inspection, nondistended, normoactive bowel sounds and non-tender GI Narrative: No pain in all 4 quadrants. Palpation: Negative for guarding or rebound tenderness present Back/Spine no CVA tenderness and no thoracic nor lumbar tenderness Extremity normal to inspection General Extremety ED: Negative for edema or tenderness General Extremity: Negative for edema Neuro oriented x3 and no sensory deficits noted Sensorium / Orientation: awake and alert Skin no rashes or lesions noted and no wounds MDM MDM MDM Narrative Medical decision making narrative: Patient dry mucosal membranes. Given IV fluids. Abdomen was soft and benign. I did check labs white count normal 6.8 hemoglobin 13.7. Potassium 3.9 creatinine 1.52 however stable from previous. No loose stools while in the ED. He requests anxiety medications for which he takes Ativan 1 mg twice a day at home. 1 mg dose given the ED. He is discharged home with outpatient follow-up. He requested prescription for Imodium. This was written. With white count normal, less likely concern for bacterial infection. Lab Data Attestation: I reviewed the patient's lab results. Labs: Laboratory Results - last 24 hr 01/13/21 01/13/21 03:40 03:40 WBC 6.8 RBC 4.44 L Hgb 13.7 Hct 42.5 MCV 95.7 H MCH 30.9 MCHC 32.2 RDW Std Deviation 49.7 H RDW Coeff of Charlie 14.1 Plt Count 136 L MPV 9.5 Immature Gran % (Auto) 0.600 Neut % (Auto) 76.4 H Lymph % (Auto) 14.2 L [place] % (Auto) 7.6 Eos % (Auto) 0.9 Baso % (Auto) 0.3 Absolute Neuts (auto) 5.2 Absolute Lymphs (auto) 0.96 Nucleated RBC % 0 Sodium 137 Potassium 3.9 Chloride 104 Carbon Dioxide 26.0 Anion Gap 7 BUN 25 H Creatinine 1.52 H Estim Creat Clear Calc 49.54 Est GFR (MDRD) Af Amer 59 L Est GFR (MDRD) Non-Af 49 L BUN/Creatinine Ratio 16.4 Glucose 214 H Calcium 8.7 Discharge Plan Triage Chief Complaint: Anxiety ED Provider: John Ortega Dx/Rx/DC Orders Clinical Impression: Diarrhea, Anxiety, Dehydration, Chronic kidney disease Instructions: CKD Dc, ED Anxiety Reaction, ED Dehydration (Adult), ED Diarrhea, Unknown Cause Prescriptions: New loperamide [Imodium A-D] 2 mg capsule 2 mg PO Q6H PRN (Reason: loose stool) Qty: 20 RF: 0 No Action metformin 500 MG tablet 500 mg PO BID RF: 0 pioglitazone 45 MG tablet 45 mg PO DAILY RF: 0 citalopram 20 MG tablet 20 mg PO DAILY RF: 0 simvastatin 20 MG tablet 20 mg PO QHS RF: 0 mirtazapine 30 MG tablet 45 mg PO QHS RF: 0 lisinopril 10 MG tablet 10 mg PO DAILY RF: 0 glimepiride 4 MG tablet 4 mg PO BID RF: 0 lorazepam 1 MG tablet 1 mg PO TID PRN PRN (Reason: Anxiety) RF: 0 sitagliptin [Januvia] 50 MG tablet 50 mg PO DAILY RF: 0 metoprolol succinate 25 MG tablet extended release 24 hr 25 mg PO DAILY RF: 0 diphenoxylate-atropine 1 TABLET tablet 1 tab PO TID PRN PRN (Reason: Diarrhea) Qty: 30 RF: 0 Trulicity 0.75 mg/0.5 mL pen injector 0.75 mg SUBCUT MO RF: 0 Primary Care Provider: Suhail Loaiza Referrals: Suhail Loaiza MD [Primary Care Provider] - 3-5 Days if not improving Disposition Disposition: Home, Self Care
[2021-01-13] MEDS: 0.9% Normal Saline 1,000 ML 1000 ML IV (03:47)
[2021-01-13 03:58] LABS: Absolute Lymphocyte Count 0.96 X10^3/uL (0.83-4.51); Absolute Neutrophil Count 5.2 X10^3/uL (2.0-7.7); Basophil# 0.02 X10^3/uL; Basophil% 0.3 % (0-1); Eosinophil# 0.06 X10^3/uL; Eosinophils% 0.9 % (0-5); Hematocrit 42.5 % (40-54); Hemoglobin 13.7 g/dL (13.0-16.5); Lymphocyte # 0.96 X10^3/ul (0.83-4.51); Lymphocyte % 14.2 % (19-41); Mean Corp Hgb Conc 32.2 g/dL (32-36); Mean Corpuscular Hgb 30.9 pg (27.0-32.0); Mean Corpuscular Volume 95.7 fL (80-94); Mean Platelet Vol. 9.5 fl (6.2-12.0); Monocyte# 0.51 X10^3/uL; Monocyte% 7.6 % (0-10); NRBC Flagged by Analyzer 0 % (0-5); Neutrophil # 5.16 X10^3/uL (2.7-7.7); Neutrophil % 76.4 % (47-70); Platelet Count 136 K/mm3 (150-450); RBC Distribution Width CV 14.1 % (11.6-14.6); RBC Distribution Width SD 49.7 fl (35.1-43.9); Red Blood Count 4.44 M/mm3 (4.6-6.2); White Blood Count 6.8 K/mm3 (4.4-11.0)
[2021-01-13 04:02] LABS: Anion Gap 7 (5-15); BUN 25 mg/dL (7-18); BUN/Creat Ratio 16.4 RATIO (10-20); Calcium,Total 8.7 mg/dL (8.5-10.1); Chloride 104 mmol/L (98-107); Creatinine, Serum 1.52 mg/dL (0.70-1.30); EST Glomerular Filtration Rate 49 mL/min (>60); Est Glom Filt Rate - Afr Amer 59 mL/min (>60); Estimated Creatinine Clearance 49.54 ml/min; Glucose 214 mg/dL (74-106); Potassium 3.9 mmol/L (3.5-5.1); Sodium Level 137 mmol/L (136-145)
[2021-01-13] MEDS: LORazepam 1 MG Tablet PO (04:43)
[2021-01-13 04:45] VITALS: BP 128/60; PULSE 90; RESP 16; O2SAT 99
== END 2021-01-13 04:51 | disposition home or self-care (01) ==
PROVIDERS: Emergency Provider Emergency Medicine; PCP Family Medicine
DX: F41.9 Anxiety disorder, unspecified (principal); E86.0 Dehydration; R19.7 Diarrhea, unspecified; E11.22 Type 2 diabetes mellitus with diabetic chronic kidney disease; N18.9 Chronic kidney disease, unspecified; Z79.84 Long term (current) use of oral hypoglycemic drugs; Z87.891 Personal history of nicotine dependence
CPT/HCPCS: 80048; 85025; 96360; 99285; J7030; A4216

== ENCOUNTER 2021-12-02 04:45 | Inpatient (IN) | payer MEDICARE, MEDICAID, SELFPAY ==
[2021-12-02] VITALS (19 sets, daily range): BP systolic 98–156; BP diastolic 49–79; PULSE 80–112; RESP 16–25; TEMP 35.8–36.6; O2SAT 97–99; BMI 24.2; BMI 24.1
[2021-12-02 05:34] LABS: Absolute Lymphocyte Count 0.48 X10^3/uL (0.83-4.51); Absolute Neutrophil Count 7.2 X10^3/uL (2.0-7.7); Basophil# 0.04 X10^3/uL; Basophil% 0.5 % (0-1); Hematocrit 47.2 % (40-54); Hemoglobin 15.1 g/dL (13.0-16.5); Lymphocyte # 0.48 X10^3/ul (0.83-4.51); Lymphocyte % 5.8 % (19-41); Mean Corpuscular Hgb 31.5 pg (27.0-32.0); Mean Corpuscular Volume 98.5 fL (80-94); Monocyte# 0.59 X10^3/uL; Monocyte% 7.1 % (0-10); NRBC Flagged by Analyzer 0 % (0-5); Neutrophil # 7.17 X10^3/uL (2.7-7.7); POSITIVE DIFFERENTIAL YES; Platelet Count 227 K/mm3 (150-450); RBC Distribution Width CV 14.6 % (11.6-14.6); RBC Distribution Width SD 53.7 fl (35.1-43.9); Red Blood Count 4.79 M/mm3 (4.6-6.2); White Blood Count 8.3 K/mm3 (4.4-11.0)
[2021-12-02] MEDS: 0.9% Normal Saline 1,000 ML 999 ML IV ×3 (05:35→09:02)
[2021-12-02] MEDS: Ondansetron 4 MG/2 ML Vial IV (05:35)
[2021-12-02 05:44] LABS: Differential Indicated SCAN CRITERIA MET
[2021-12-02 05:58] LABS: AST(SGOT) 14 U/L (15-37); Alanine Aminotransfer ALT/SGPT 21 U/L (16-61); Albumin, Serum 3.4 g/dL (3.2-5.0); Alkaline Phosphatase 49 U/L (45-117); Anion Gap 21 (5-15); BUN 41 mg/dL (7-18); BUN/Creat Ratio 22.4 RATIO (10-20); Calcium,Total 8.7 mg/dL (8.5-10.1); Chloride 101 mmol/L (98-107); Creatinine, Serum 1.83 mg/dL (0.70-1.30); EST Glomerular Filtration Rate 39 mL/min (>60); Est Glom Filt Rate - Afr Amer 47 mL/min (>60); Estimated Creatinine Clearance 40.58 ml/min; Globulin 3.7 g/dL (2.2-4.2); Glucose 350 mg/dL (74-106); Lipase 58 U/L (73-393); Magnesium 1.9 mg/dL (1.6-2.6); Potassium 4.3 mmol/L (3.5-5.1); Protein, Total 7.1 g/dL (6.4-8.2); Sodium Level 136 mmol/L (136-145)
[2021-12-02 06:18] LABS: Differential Comment SCANNED; Reactive Lymphocyte 1+
--- NOTE | 2021-12-02 06:43 | EX.ED.DYSGE1 ---
HPI History of Present Illness Chief Complaint: Nausea/Vomiting Narrative Narrative: Patient is a 71-year-old male with past medical history of hypertension hyperlipidemia and diabetes. He states that beginning morning around 4:30 in the morning he developed bouts of nausea and vomiting. He states this lasted essentially the entire day and then resolved. He states that there has been no known sick contact. He denies any dark or discoloration to the emesis. He states he is also had a few bouts of loose stool but that this can be normal for him. He reports that despite not eating or drinking the vomiting has persisted and he is also developed heartburn. With concern he is becoming dehydrated he presents to the hospital for evaluation [facility] Medical History Diabetes Kidney disease Home Medications citalopram 20 mg PO DAILY 07/02/18 [History Last Taken Unknown] glimepiride 4 mg PO BID 07/02/18 [History Last Taken Unknown] lisinopril 45 mg PO DAILY 07/02/18 [History Last Taken Unknown] lorazepam 1 mg PO BID PRN PRN 07/02/18 [History Last Taken Unknown] metformin 500 mg PO DAILY 07/02/18 [History Last Taken Unknown] mirtazapine 45 mg PO QHS 07/02/18 [History Last Taken Unknown] pioglitazone 45 mg PO DAILY 07/02/18 [History Last Taken Unknown] simvastatin 20 mg PO QHS 07/02/18 [History Last Taken Unknown] sitagliptin [Januvia] 50 mg PO DAILY 07/02/18 [History Last Taken Unknown] diphenoxylate-atropine 1 tab PO TID PRN PRN #30 tab 07/20/18 [Rx Last Taken Unknown] metoprolol succinate 25 mg PO DAILY 07/20/18 [History Last Taken Unknown] dulaglutide [Trulicity] 0.75 mg SUBCUT MO 01/13/21 [History Last Taken Unknown] loperamide [Imodium A-D] 2 mg PO Q6H PRN #20 cap 01/13/21 [Rx Last Taken Unknown] dapagliflozin [Farxiga] 10 mg PO DAILY 12/02/21 [History Last Taken Unknown] Allergy/AdvReac Type Severity Reaction Status Date / Time No Known Allergies Allergy Verified 12/02/21 04:46 Social History Smoking Status: Former smoker ROS ROS ED Constitutional Constitutional ED: Denies chills or fever(s) ENT ENT ED: Denies sore throat Cardiovascular Cardiovascular: Denies chest pain Respiratory/Chest Respiratory/Chest: Denies cough or dyspnea Gastrointestinal Gastrointestinal: Reports abdominal pain, diarrhea, nausea and vomiting Genitourinary Genitourinary ED: Denies dysuria Musculoskeletal Musculoskeletal: Denies myalgias Integumentary Denies rash Neurologic Neurologic: Denies headache(s) Hematologic/Lymphatic Hematologic/Lymphatic: Denies easy bleeding or easy bruising EXAM Physical Exam Const Vital Signs: 12/02/21 04:48 12/02/21 06:38 Temperature 97.6 F L Temperature Source Temporal Pulse Rate 112 H 107 H Respiratory Rate 20 H 18 Blood Pressure 156/73 H 125/59 H Blood Pressure Mean 100 81 Pulse Ox 98 97 Oxygen Delivery Method Room Air Room Air Positive well nourished and well developed General Appearance ED: well developed HEENT Reports dry mucous membranes Mouth ED: Yes dry mucous membranes Mouth: dry mucous membranes Eyes PERRL and EOMs intact bilaterally General Eye ED: Negative for scleral icterus Neck supple Resp normal respiratory effort and clear to auscultation bilaterally Cardio regular rhythm Rate: tachycardic GI non-tender and non-distended GI Narrative: Abdomen is soft nontender and nondistended with hyperactive bowel sounds. No voluntary guarding or rigidity no pulsatile mass. No fluid wave noted Palpation: soft Extremity normal to inspection Neuro oriented x3 and CN's II-XII intact bilaterally Sensorium / Orientation: alert Motor Exam: strength 5/5 throughout Psych mental status grossly normal Skin no rashes or lesions noted Skin Narrative: Skin turgor is increased General Skin Exam: Negative for jaundice MDM MDM MDM Narrative Medical decision making narrative: To the ER afebrile but was slightly hypertensive and tachycardic. He reported multiple episodes of vomiting over the past 12 to 24-hour and on exam he did have dehydration changes. Secondary to this basic blood work was obtained to check for acute kidney injury as well as electrolyte disturbance. Blood work did show elevation to his creatinine consistent with dehydration but more significant note was the elevation to his anion gap with decreased bicarb. With his history of diabetes there is concern he is progressing to DKA so a venous blood gas was obtained and acetone level was added. Patient did have moderate acetones within his blood and his pH is decreased to 7.15 consistent with diabetic ketoacidosis. Patient was given 2 L of IV fluids as well as Zofran and had no further bouts of vomiting in the ER. Because of his DKA changes he will be placed on an insulin drip and admitted to the ICU for further care Lab Data Attestation: I reviewed the patient's lab results. Labs: Laboratory Results - last 24 hr 12/02/21 12/02/21 12/02/21 04:55 04:55 06:22 WBC 8.3 RBC 4.79 Hgb 15.1 Hct 47.2 MCV 98.5 H MCH 31.5 MCHC 32.0 RDW Std Deviation 53.7 H RDW Coeff of Charlie 14.6 Plt Count 227 MPV 10.0 Immature Gran % (Auto) 0.600 Neut % (Auto) 86.0 H Lymph % (Auto) 5.8 L [place] % (Auto) 7.1 Eos % (Auto) 0.0 Baso % (Auto) 0.5 Absolute Neuts (auto) 7.2 Absolute Lymphs (auto) 0.48 L Nucleated RBC % 0 Differential Comment SCANNED Reactive Lymphocytes 1+ Sodium 136 Potassium 4.3 Chloride 101 Carbon Dioxide 14.0 L Anion Gap 21 H BUN 41 H Creatinine 1.83 H Estim Creat Clear Calc 40.58 Est GFR (MDRD) Af Amer 47 L Est GFR (MDRD) Non-Af 39 L BUN/Creatinine Ratio 22.4 H Glucose 350 H Lactic Acid Calcium 8.7 Magnesium 1.9 Total Bilirubin 0.60 Direct Bilirubin 0.10 AST 14 L ALT 21 Alkaline Phosphatase 49 Total Protein 7.1 Albumin 3.4 Globulin 3.7 Lipase 58 L Acetone Level MODERATE H 12/02/21 06:22 WBC RBC Hgb Hct MCV MCH MCHC RDW Std Deviation RDW Coeff of Charlie Plt Count MPV Immature Gran % (Auto) Neut % (Auto) Lymph % (Auto) [place] % (Auto) Eos % (Auto) Baso % (Auto) Absolute Neuts (auto) Absolute Lymphs (auto) Nucleated RBC % Differential Comment Reactive Lymphocytes Sodium Potassium Chloride Carbon Dioxide Anion Gap BUN Creatinine Estim Creat Clear Calc Est GFR (MDRD) Af Amer Est GFR (MDRD) Non-Af BUN/Creatinine Ratio Glucose Lactic Acid 1.5 Calcium Magnesium Total Bilirubin Direct Bilirubin AST ALT Alkaline Phosphatase Total Protein Albumin Globulin Lipase Acetone Level ABG Data ABG results: ABG 12/02/21 06:41 Specimen Type SHAUNA VBG pH 7.15 L* VBG pO2 45 H VBG HCO3 11 L VBG Total CO2 12 L VBG O2 Sat (Calc) 69 VBG Base Excess -18 L POC Mix VBG pCO2 Pt Tmp 30.8 L Crit Call To/Read Back Yes Blood Gas Notified Whom Andes Blood Gas Notified Time 06:43:09 Discharge Plan Dx/Rx/DC Orders Clinical Impression: DKA (diabetic ketoacidosis), Hypertension, Hyperlipidemia, Dehydration Disposition Disposition: Acute Care [facility]
[2021-12-02 06:45] LABS: Blood Gas Specimen Type VEN; VBG BASE EXCESS -18 mmol/L (-1.0-3.5); VBG Bicarbonate 11 mmol/L (22-26); VBG PO2 45 mmHg (25-40); VBG SO2 69 % (50-70); VBG TCO2 12 mmol/L (23-33); VBG pCO2 30.8 mmHg (41-51); VBG pH 7.15 (7.32-7.42)
[2021-12-02 07:09] LABS: Lactic Acid 1.5 mmol/L (0.4-1.9)
[2021-12-02 08:15] LABS: Bedside Glucose 295 mg/dL (74-106)
[2021-12-02 09:10] LABS: Bedside Glucose 292 mg/dL (74-106)
[2021-12-02 09:29] LABS: Anion Gap 13 (5-15); BUN 35 mg/dL (7-18); Calcium,Total 7.6 mg/dL (8.5-10.1); Chloride 110 mmol/L (98-107); Creatinine, Serum 1.52 mg/dL (0.70-1.30); EST Glomerular Filtration Rate 49 mL/min (>60); Est Glom Filt Rate - Afr Amer 59 mL/min (>60); Estimated Creatinine Clearance 48.85 ml/min; Glucose 299 mg/dL (74-106); Potassium 5.8 mmol/L (3.5-5.1); Sodium Level 138 mmol/L (136-145)
--- NOTE | 2021-12-02 09:30 | CASEMGMT ---
RN CM SPOTTER DRIVER CM to room to meet with patient for initial transition planning/care coordination assessment. ZHANNA THOMAS introduced self and role at [facility]. Pt voices understanding and consents to assessment at this time. Pt resting in bed in no distress at this time. Pt is A/O at this time and answers all questions appropriately. Care providers, pharmacy, and demographics verified/updated at this time. PCP: Dr Loaiza Specialists: none Preferred Pharmacy: [facility] [place], [place] Insurance: [facility] Dual, [place] Community Plan Prescription Benefit: Yes Living Will/HPOA: Pt states he started the paperwork, but has not completed it. He would like to talk w/SW to complete while @ [facility]. PADMINI Sanchez, made aware. Pt made aware, if SW unavailable to meet w/him while @ [facility], this can be completed as an OP w/SW. Pt provided w/[employer] card w/contact info. LNOK: Dtr, Carlotta Davila (lives in [place]). Also has dtrAnjana, who pt states is not involved. Pt also has son w/Down Syndrome. Friend, Ajit Shaffer. Living Arrangements: Lives alone in one-story apt. No steps to enter apt, but there are 4-5 steps to go down to get to building his apartment is in. Independent w/ADL's. Has a cleaning lady through his insurance who comes on and she gets groceries for pt. He is able to prepare meals. Transportation: Pt does not drive. His friend's (Ajit) son-in-law provides transportation at times. pt also utilizes [facility] van transportation to appts. DME: States has the following DME: functioning glucometer w/supplies. Pt states no need for further DME at this time. HHC/SNF: No hx of either. No needs identified. Pt wishes to return home and states has no concerns with going home at time of discharge. CM to follow for any discharge planning/needs. Pt voices no concerns/needs at this time. Advised pt to ask for CM if any questions/concerns/needs arise. Voices understanding. PLAN: Home w/discharge plans in place. Rodrigo ALMONTE RN, CM
[2021-12-02 10:06] LABS: Bedside Glucose 241 mg/dL (74-106)
[2021-12-02] MEDS: 0.9% Normal Saline 1,000 ML 500 ML IV (10:08)
[2021-12-02 11:06] LABS: Bedside Glucose 173 mg/dL (74-106)
[2021-12-02] MEDS: Dextrose 5%/0.9% NaCl 1,000 ML 75 ML IV (11:20)
[2021-12-02 12:10] LABS: Bedside Glucose 160 mg/dL (74-106)
[2021-12-02 12:57] LABS: Anion Gap 5 (5-15); BUN 34 mg/dL (7-18); BUN/Creat Ratio 23.4 RATIO (10-20); Calcium,Total 7.5 mg/dL (8.5-10.1); Chloride 116 mmol/L (98-107); Creatinine, Serum 1.45 mg/dL (0.70-1.30); EST Glomerular Filtration Rate 51 mL/min (>60); Est Glom Filt Rate - Afr Amer 62 mL/min (>60); Estimated Creatinine Clearance 51.21 ml/min; Glucose 188 mg/dL (74-106); Potassium 5.8 mmol/L (3.5-5.1); Sodium Level 139 mmol/L (136-145)
[2021-12-02 13:05] LABS: Bedside Glucose 160 mg/dL (74-106)
[2021-12-02] MEDS: Pioglitazone Hydrochloride 45 MG Tablet PO (13:52)
[2021-12-02] MEDS: Insulin Glargine-YFGN 100 UNIT/ML Pen 10 UNIT SC (13:53)
[2021-12-02] MEDS: Heparin Injection (Vial) 5,000 UNIT/ML VIAL 5000 UNIT SC ×2 (14:00→21:13)
[2021-12-02 14:06] LABS: Bedside Glucose 141 mg/dL (74-106)
--- NOTE | 2021-12-02 15:19 | HP.PCM.HOS_ITS ---
HPI - General General Date of Admission: 12/02/21 HPI Narrative MARYCHUY PATTERSON, is a 71 M who presented to the emergency department at [facility] on 12/02/2021 with a chief complaint of nausea and vomiting. The patient reports the nausea and vomiting began on morning around 430 or 5:00. He woke up at 4 and took his medications and then began again having bouts of nausea and vomiting which has been ongoing since that time. He states his nausea vomiting essentially lasted the entire day but then resolved in the evening but restarted and that is why he presented to the emergency department. He denied any hematemesis or discoloration of his emesis. He states that he had a few loose bowel movements but this is a chronic issue for him and not out of his norm. He reports that despite not eating or drinking much the vomit has persisted and he also has developed some heartburn related to this. He was concerned that he may becoming dehydrated and came to the emergency department for evaluation. In the emergency department upon presentation he was afebrile with a heart rate in the low 100s to 115, his blood pressure was 156/73, respiratory rate was 20, and oxygen saturation was 98% on room air. His CBC was unremarkable with no significant abnormalities in his counts. His initial CBC showed normal electrolytes with a sodium bicarb of 14 and anion gap of 21 BUN of 41 and a serum creatinine of 1.83. His baseline serum creatinine appears to be between 1.3 and 1.5. His blood sugar on his basic metabolic profile was 350. Liver enzymes were normal and lipase was 58. A VBG was obtained and a pH was found to be 7.15. Given the above findings he was diagnosed with DKA and medications including IV fluids and insulin were administered. He was also given a PPI for his heartburn and antiemetics. Upon further discussion with the patient it appears that they have been titrating his medications and making some changes in his diabetes medications. He states that the individual who has been doing this is Shanon from the hospital. He notes she is a pharmacist however I am unclear who this individual is. Prescriptions at the pharmacy have come from her primary care physician and the physician ssn/ssbn assistant navigator who works with him. It appears that an SGL 2P inhibitor was initiated and then uptitrated recently. SGLT2 inhibitors are known for p otentially causing DKA and I suspect the initiation of this medication has resulted in his presentation. He will be admitted to the ICU and maintained on IV insulin drip as well as IV fluids until his DKA resolves. [facility] Medical History Anxiety Depression Diarrhea Hyperlipidemia Hypertension Kidney disease Type II diabetes mellitus Home Medications citalopram 20 mg PO DAILY 07/02/18 [History Last Taken Unknown] glimepiride 4 mg PO BID 07/02/18 [History Last Taken Unknown] lisinopril 45 mg PO DAILY 07/02/18 [History Last Taken Unknown] lorazepam 1 mg PO BID PRN PRN 07/02/18 [History Last Taken Unknown] metformin 500 mg PO DAILY 07/02/18 [History Last Taken Unknown] mirtazapine 45 mg PO QHS 07/02/18 [History Last Taken Unknown] pioglitazone 45 mg PO DAILY 07/02/18 [History Last Taken Unknown] simvastatin 20 mg PO QHS 07/02/18 [History Last Taken Unknown] sitagliptin [Januvia] 50 mg PO DAILY 07/02/18 [History Last Taken Unknown] diphenoxylate-atropine 1 tab PO TID PRN PRN #30 tab 07/20/18 [Rx Last Taken Unknown] metoprolol succinate 25 mg PO DAILY 07/20/18 [History Last Taken Unknown] dulaglutide [Trulicity] 0.75 mg SUBCUT MO 01/13/21 [History Last Taken Unknown] loperamide [Imodium A-D] 2 mg PO Q6H PRN #20 cap 01/13/21 [Rx Last Taken Unknown] dapagliflozin [Farxiga] 10 mg PO DAILY 12/02/21 [History Last Taken Unknown] Allergy/AdvReac Type Severity Reaction Status Date / Time dapagliflozin [From Farxiga] AdvReac Severe DKA Verified 12/02/21 13:30 Family History (Updated 12/02/21 @ 15:[address] Clari Maurer DO) Other Diabetes Hypertension Surgical History no surgical history no surgical history Social History (Updated 12/02/21 @ 15:[address] Clari Maurer DO) household members: none housing: apartment other: Patient does not drive Smoking Status: Former smoker alcohol intake: never substance use type: does not use diet: diabetic ROS Constitutional Constitutional: Denies anorexia, change in weight, chills, fatigue, fever(s), malaise, night sweats, weakness or other Eyes Eyes: Denies blurry vision, change in eye color, change in vision, discharge from eye(s), double vision, erythema, eye pain, loss of vision or other ENT HEENT: Denies abnormal hearing, dysphagia, ear pain, epistaxis, headache(s), hearing loss, nasal congestion, nasal discharge, post nasal drip, sinus pressure, sore throat or other Cardiovascular Cardiovascular: Denies chest pain, claudication, dyspnea on exertion, edema, lightheadedness, orthopnea, palpitations, paroxysmal nocturnal dyspnea, rapid heart rate, syncope or other Respiratory/Chest Respiratory/Chest: Denies cough, dyspnea, excessive phlegm production, he moptysis, productive cough, shortness of breath at rest, shortness of breath with exertion, wheezing or other Gastrointestinal Gastrointestinal: Reports loose stools, nausea and vomiting; Denies abdominal pain, coffee ground emesis, constipation, diarrhea, dyspepsia, hematemesis, hematochezia, melena or other Genitourinary Genitourinary: Denies burning urination, difficulty urinating, dysuria, hematuria, nocturia, urinary frequency, urinary hesitancy, urinary incontinence, urinary urgency or other Musculoskeletal Musculoskeletal: Denies arthralgias, back pain, joint pain, joint stiffness, joint swelling, myalgias, neck pain or other Neurologic Neurologic: Denies abnormal gait, abnormal speech, confusion, disequilibrium, dizziness, focal weakness, headache(s), numbness, paresthesias, seizure-like activity, seizures, syncope, tingling, tremor(s) or other Psychiatric Psychiatric: Denies anxiety, depression, homicidal ideation, suicidal ideation or other Endocrine Endocrinology: Reports polydipsia and polyuria; Denies change in body appearance, cold intolerance, excessive sweating, heat intolerance or other Hematologic/Lymphatic Hematologic/Lymphatic: Denies anemia, easy bleeding, easy bruising, lymphadenopathy or other Allergic/Immunologic Allergic/Immunologic: Denies rhinitis, hives, eczemia, asthma or other Vital Signs Vital Signs Vital Signs: 12/02/21 04:48 12/02/21 06:38 12/02/21 07:38 Temperature 97.6 F L 97.9 F Temperature Source Temporal Oral Pulse Rate 112 H 107 H 94 Respiratory Rate 20 H 18 18 Blood Pressure 156/73 H 125/59 H 114/60 Blood Pressure [BP] Blood Pressure Mean 100 81 78 Blood Pressure Mean [BP] Blood Pressure Source Blood Pressure Source [BP] Blood Pressure Position Blood Pressure Position [BP] Blood Pressure Location Blood Pressure Location [BP] Pulse Ox 98 97 98 Oxygen Delivery Method Room Air Room Air Room Air 12/02/21 08:30 12/02/21 08:35 12/02/21 08:45 Temperature 97.4 F L Temperature Source Temporal Pulse Rate 90 91 93 Respiratory Rate 21 H Blood Pressure 123/61 H 116/59 L Blood Pressure [BP] 123/61 H Blood Pressure Mean 81 78 Blood Pressure Mean [BP] 81 Blood Pressure Source Monitor Monitor Blood Pressure Source [BP] Monitor Blood Pressure Position Semi-Fowlers Semi-Fowlers Blood Pressure Position [BP] Semi-Fowlers Blood Pressure Location Left Arm Left Arm Blood Pressure Location [BP] Right Arm Pulse Ox 99 98 Oxygen Delivery Method Room Air Room Air 12/02/21 09:00 12/02/21 09:15 12/02/21 10:00 Temperature Temperature Source Pulse Rate 93 90 91 Respiratory Rate Blood Pressure 133/56 H 118/79 Blood Pressure [BP] Blood Pressure Mean 81 92 Blood Pressure Mean [BP] Blood Pressure Source Monitor Monitor Blood Pressure Source [BP] Blood Pressure Position Semi-Fowlers Semi-Fowlers Blood Pressure Position [BP] Blood Pressure Location Left Arm Left Arm Blood Pressure Location [BP] Pulse Ox 99 98 Oxygen Delivery Method Room Air Room Air 12/02/21 10:14 12/02/21 10:30 12/02/21 12:43 Temperature Temperature Source Pulse Rate 85 84 80 Respiratory Rate Blood Pressure 116/58 L 109/54 L Blood Pressure [BP] Blood Pressure Mean 72 Blood Pressure Mean [BP] Blood Pressure Source Monitor Blood Pressure Source [BP] Blood Pressure Position Semi-Fowlers Blood Pressure Position [BP] Blood Pressure Location Left Arm Blood Pressure Location [BP] Pulse Ox 98 Oxygen Delivery Method Room Air Weight Weight: 78.6 kg Body Mass Index (BMI) 24.1 Physical Exam Const alert, oriented x3, no apparent distress, average body habitus, healthy appearing and well nourished Constitutional Narrative: Upper middle-aged white male lying in bed, appears nontoxic but ill, appears comfortable, nursing at bedside initiating insulin dri p General Appearance: cooperative HEENT normocephalic, head/scalp atraumatic and hearing grossly normal bilaterally HEENT Narrative: Mucous membranes are mildly dry, no thrush, Mallampati is 2-3 Eyes PERRL, EOMs intact bilaterally and conjunctivae normal Eyes Narrative: No scleral icterus Neck no lymphadenopathy, supple, no JVD and no carotid bruits Resp normal respiratory effort, no retractions, no use of accessory muscles and clear to auscultation bilaterally Auscultation: Negative for crackles, rales, rhonchi or wheezes Cardio regular rate, regular rhythm, S1 normal heart sound, S2 normal heart sound, no murmurs, no rub, no gallops, no clicks and no JVD GI normal to inspection, nondistended, normoactive bowel sounds, soft to palpation, non-tender and non-distended; Negative for hepatosplenomegaly Extremity normal to inspection, full ROM and no clubbing, cyanosis or edema Peripheral Pulses: Yes pulses 2+ throughout Skin no rashes or lesions noted, no wounds, skin turgor normal, no jaundice, no petechiae and no mottling Neuro oriented x3, CN's II-XII intact bilaterally, moves all extremities and no focal motor deficits Neuro Narrative: No sensory deficits Sensorium / Orientation: awake and alert Speech: speech normal Motor Exam: strength 5/5 throughout Psych affect normal Psych Narrative: Seems slightly anxious, but appropriately interactive Results Lab / Micro Data Attestation: I reviewed the patient's lab results. Result Diagrams: 12/02/21 04:55 12/02/21 12:00 Labs: Laboratory Results - last 24 hr 12/02/21 04:55: WBC 8.3, RBC 4.79, Hgb 15.1, Hct 47.2, MCV 98.5 H, MCH 31.5, MCHC 32.0, RDW Std Deviation 53.7 H, RDW Coeff of Charlie 14.6, Plt Count 227, MPV 10.0, Immature Gran % (Auto) 0.600, Neut % (Auto) 86.0 H, Lymph % (Auto) 5.8 L, [place] % (Auto) 7.1, Eos % (Auto) 0.0, Baso % (Auto) 0.5, Absolute Neuts (auto) 7.2, Absolute Lymphs (auto) 0.48 L, Nucleated RBC % 0, Differential Comment SCANNED, Reactive Lymphocytes 1+ 12/02/21 04:55: Sodium 136, Potassium 4.3, Chloride 101, Carbon Dioxide 14.0 L, Anion Gap 21 H, BUN 41 H, Creatinine 1.83 H, Estim Creat Clear Calc 40.58, Est GFR (MDRD) Af Amer 47 L, Est GFR (MDRD) Non-Af 39 L, BUN/Creatinine Ratio 22.4 H , Glucose 350 H, Calcium 8.7, Magnesium 1.9, Total Bilirubin 0.60, Direct Bilirubin 0.10, AST 14 L, ALT 21, Alkaline Phosphatase 49, Total Protein 7.1, Albumin 3.4, Globulin 3.7, Lipase 58 L 12/02/21 06:22: Acetone Level MODERATE H 12/02/21 06:22: Lactic Acid 1.5 12/02/21 08:07: POC Glucose 295 H 12/02/21 08:59: POC Glucose 292 H 12/02/21 09:00: Sodium 138, Potassium 5.8 H, Chloride 110 H, Carbon Dioxide 15.0 L, Anion Gap 13, BUN 35 H, Creatinine 1.52 H, Estim Creat Clear Calc 48.85, Est GFR (MDRD) Af Amer 59 L, Est GFR (MDRD) Non-Af 49 L, BUN/Creatinine Ratio 23.0 H, Glucose 299 H, Calcium 7.6 L 12/02/21 09:00: Hemoglobin A1c 7.0 H 12/02/21 10:00: POC Glucose 241 H 12/02/21 11:00: POC Glucose 173 H 12/02/21 12:00: Sodium 139, Potassium 5.8 H, Chloride 116 H, Carbon Dioxide 18.0 L, Anion Gap 5, BUN 34 H, Creatinine 1.45 H, Estim Creat Clear Calc 51.21, Est GFR (MDRD) Af Amer 62, Est GFR (MDRD) Non-Af 51 L, BUN/Creatinine Ratio 23.4 H, Glucose 188 H, Calcium 7.5 L 12/02/21 12:02: POC Glucose 160 H 12/02/21 13:00: POC Glucose 160 H 12/02/21 13:59: POC Glucose 141 H ABG Data ABG results: ABG 12/02/21 06:41 Specimen Type SHAUNA VBG pH 7.15 L* VBG pO2 45 H VBG HCO3 11 L VBG Total CO2 12 L VBG O2 Sat (Calc) 69 VBG Base Excess -18 L POC Mix VBG pCO2 Pt Tmp 30.8 L Crit Call To/Read Back Yes Blood Gas Notified Whom Andes Blood Gas Notified Time 06:43:09 Assessment & Plan Assessment/Plan (1) DKA (diabetic ketoacidosis): (2) Metabolic acidosis: (3) SHANNAN (acute kidney injury): (4) Dehydration: (5) High anion gap metabolic acidosis: (6) Nausea & vomiting: PLAN: DKA and a type II diabetic -I suspect his DKA is related to the initiation of SLGP 2 inhibitor Farxiga -Hold all oral medications -Insulin drip -IV fluids per protocol -Serial BMPs until gap is closed and DKA is resolved -Electrolyte replacement as needed -We will start oral medications and probably subcu long-acting insulin once gap is closed -P.o. until we can reinitiate home regimen SHANNAN on CKD stage IIIb secondary to dehydration -Baseline serum creatinine appears to be between 1.3 and 1.5 -Serum creatinine on presentation was 1.83 -IV hydration as above -Avoid nephrotoxins Elevated anion gap metabolic acidosis -Secondary to above -Should resolved with resolution of DKA DM-2 -Patient appears controlled at baseline is hemoglobin A1c is 7.0 -It is likely that his DKA was precipitated by medication changes and the initiation of SLGP 2 inhibitor Farxiga -We will restart oral medications excluding the above upon resolution of DKA -We will likely increase metformin to 1000 mg p.o. twice daily from 500 mg daily/continue Actos/continue Trulicity/continue Januvia -With the number of agents the patient is requiring for control it may be more appropriate to initiate insulin however I will make referral to endocrinology upon discharge for follow-up and consideration for ongoing treatment -SLG P2 inhibitors were placed as allergies for adverse reaction Hypertension -Continue metoprolol -We will reinitiate lisinopril once SHANNAN has resolved Hyperlipidemia -Continue simvastatin Depression/anxiety -Continue citalopram -Continue as needed alprazolam -Continue mirtazapine at at bedtime DVT prophylaxis -Heparin -SCDs CODE STATUS -Full code Charges/Coding Visit Charges Inpatient E&M: 65704 Init Hosp L3
[2021-12-02 16:55] LABS: Bedside Glucose 133 mg/dL (74-106)
[2021-12-02] MEDS: metFORMIN HCl 1,000 MG Tablet 1000 MG PO (17:33)
--- NOTE | 2021-12-02 18:22 | CT_ITS ---
STUDY: CT BRAIN WITHOUT CONTRAST REASON FOR EXAM: Male, 71 years old. Fall, hit back of head RADIATION DOSAGE (If Supplied By Facility): CTDIvol = ( 44.99 ) mGy, DLP = ( 812.98 ) mGycm TECHNIQUE: Transaxial CT imaging of the brain was performed without administration of intravenous contrast material. Individualized dose optimization techniques were used for this CT. COMPARISON: No relevant priors. FINDINGS: Normal soft tissue structures. Normal calvarium. There is mild cerebral atrophy with widening of the extra-axial spaces and ventricular dilatation. There are areas of decreased attenuation within the white matter tracts of the supratentorial brain, consistent with microvascular disease changes. Normal basal ganglia and thalami. Normal brainstem. Normal cerebellum. There is no intracranial hemorrhage. There are no findings of an acute ischemic infarction. Normal visualized paranasal sinuses. CT/Brain/Head without Contrast IMPRESSION: No acute intracranial hemorrhage or mass effect. Electronically Signed: Tim Berry MD ([place]) at 19:08 EDT ,
--- NOTE | 2021-12-02 18:36 | RAD_ITS ---
STUDY: X-RAY - LEFT SHOULDER REASON FOR EXAM: Male, 71 years old. Fall TECHNIQUE: 2 view(s) of the shoulder. COMPARISON: Chest x-ray 04/12/2017 FINDINGS: Normal glenohumeral articulation. 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 Normal acromion. Normal humeral head and visualized proximal humerus. The soft tissue structures are unremarkable. Normal visualized pulmonary apex. Old left rib fracture noted. RAD/Shoulder min 2 Views IMPRESSION: 1. No acute fracture or malalignment. 2. Sequela of old injury of the left acromioclavicular and coracoclavicular articulations. Electronically Signed: Tim Berry MD ([place]) at 19:10 EDT ,
[2021-12-02] MEDS: Acetaminophen 325 MG Tablet 650 MG PO (21:09)
[2021-12-02] MEDS: Mirtazapine 15 MG Tablet 45 MG PO (21:10)
[2021-12-02] MEDS: Atorvastatin Calcium 10 MG Tablet PO (21:12)
[2021-12-02] MEDS: LORazepam 1 MG Tablet PO (21:12)
[2021-12-03] VITALS (14 sets, daily range): BP systolic 93–121; BP diastolic 52–64; PULSE 84–93; RESP 17–23; TEMP 36.1–36.4; O2SAT 95–100
[2021-12-03 01:16] LABS: Bedside Glucose 144 mg/dL (74-106)
[2021-12-03 04:26] LABS: Anion Gap 7 (5-15); BUN 30 mg/dL (7-18); BUN/Creat Ratio 21.6 RATIO (10-20); Calcium,Total 7.8 mg/dL (8.5-10.1); Chloride 111 mmol/L (98-107); Creatinine, Serum 1.39 mg/dL (0.70-1.30); EST Glomerular Filtration Rate 54 mL/min (>60); Est Glom Filt Rate - Afr Amer 65 mL/min (>60); Estimated Creatinine Clearance 53.42 ml/min; Glucose 134 mg/dL (74-106); Potassium 4.3 mmol/L (3.5-5.1); Sodium Level 137 mmol/L (136-145)
--- NOTE | 2021-12-03 04:41 | NURSING ---
IVF fluid stopped per hospitalist @ 0106. Not previously documented as complete, so this nurse completed the infusion in the SEP.
[2021-12-03] MEDS: Heparin Injection (Vial) 5,000 UNIT/ML VIAL 5000 UNIT SC (07:08)
[2021-12-03] MEDS: Citalopram 20 MG Tablet PO (07:52)
[2021-12-03] MEDS: metFORMIN HCl 1,000 MG Tablet 1000 MG PO (07:52)
[2021-12-03] MEDS: Pantoprazole Sodium 40 MG Tablet PO (07:52)
[2021-12-03] MEDS: Pioglitazone Hydrochloride 45 MG Tablet PO (07:53)
[2021-12-03 08:00] LABS: Bedside Glucose 118 mg/dL (74-106)
--- NOTE | 2021-12-03 10:35 | DS.PCM_ITS ---
Providers Date of Admission: 12/02/21 Date of Discharge: 12/03/21 Primary Care Physician: Dr. Suhail Loaiza MD Reason For Visit: DKA Diagnosis Discharge Diagnosis (1) DKA (diabetic ketoacidosis): Status: Acute Code(s): E11.10 - Type 2 diabetes mellitus with ketoacidosis without coma (2) Metabolic acidosis: Status: Deleted Code(s): E87.2 - Acidosis (3) SHANNAN (acute kidney injury): Status: Acute Code(s): N17.9 - Acute kidney failure, unspecified (4) Dehydration: Status: Acute Code(s): E86.0 - Dehydration (5) High anion gap metabolic acidosis: Status: Acute Code(s): E87.2 - Acidosis (6) Nausea & vomiting: Status: Acute Code(s): R11.2 - Nausea with vomiting, unspecified Medications at Discharge Home Medications Januvia 50 mg PO DAILY 07/02/18 citalopram 20 mg PO DAILY 07/02/18 lisinopril 45 mg PO DAILY 07/02/18 lorazepam 1 mg PO BID PRN PRN 07/02/18 mirtazapine 45 mg PO QHS 07/02/18 pioglitazone 45 mg PO DAILY 07/02/18 simvastatin 20 mg PO QHS 07/02/18 diphenoxylate-atropine 1 tab PO TID PRN PRN #30 tab 07/20/18 metoprolol succinate 25 mg PO DAILY 07/20/18 loperamide [Imodium A-D] 2 mg PO Q6H PRN #20 cap 01/13/21 insulin detemir U-100 [Levemir FlexTouch U-100 Insuln] 10 unit SUBCUT QHS #15 ml 12/03/21 isopropyl alcohol [Alcoh-Wipe] 1 towel MISCELLANEOUS QHS #100 ea 12/03/21 metformin 500 mg PO BID #120 tab 12/03/21 pen needle, diabetic #100 ea 12/03/21 Hospital Course Operations None Procedures None Summary of Care Provided Minutes Spent on Discharge: 39 Hospital Course: Mr. Grayson is a 71-year-old male who presented to emergency department was [facility] on 12/02/2021 with chief complaint of nausea vomiting. The patient reported that nausea and vomiting began on morning around 430 or 5 AM. He reported he woke up at 4 AM and took his medications and then began having bouts of nausea vomiting after that. Those symptoms lasted essentially entire day but then resolved in the evening however they restarted on the morning of presentation. He denied any hematemesis or discoloration of his emesis. He reported a few loose bowel movements but indicated that was a chronic issue for him. He reported that he had not been eating much or drinking secondary to his above symptoms and therefore he came into the emergency department for evaluation. In the emergency department he was afebrile with a heart rate in the low 100s to 115, his blood pressure was slightly elevated at 156/73, his respiratory rate was 20 and his oxygen saturation was 98% on room air. His CBC was unremarkable with no significant abnormalities. His initial BMP showed normal electrolytes however he had a markedly low sodium bicarb at 14 and an elevated anion gap at 21. His BUN was 41 and his serum creatinine was 1.83. His baseline serum creatinine appeared to be 1.3-1.5. His blood sugar on the basic metabolic profile was 350. A VBG was obtained and showed a pH of 7.15. Given his above findings he was diagnosed with DKA and was started on IV fluids PPI, antiemetics, and an insulin drip. Upon further discussion with the patient it appears that in the outpatient setting titration of his antihyperglycemic medications has been being performed and he was started on an SLG P2 inhibitor with recent up titration of this medication. His hemoglobin A1c was found to be 7 and he does not report any previous episodes of DKA. I do suspect that his medication is the reason for his presentation in DKA. We are able to have fairly quickly get him off the insulin drip with closure of his gap and clearance of his ketones. His renal function had returned to baseline. We placed him on 10 units of insulin, held to his sulfonylurea, discontinued his Farxiga, and uptitrated his metformin 2000 mg p.o. twice daily. He remained on his Actos and Januvia. Overall he had good blood sugar control on this regimen. At discharge we recommended he discontinue his Farxiga, sulfonylurea, and Trulicity for now. We discharged him with Lantus 10 units at at bedtime via pen and prescriptions for the pen, needles, and alcohol swabs were written for at discharge. We recommended close follow-up with his primary care physician and he was given referral to endocrinology if he wishes to follow-up with them as an outpatient. He was discharged home in stable condition on 12/03/2021. Discharge diagnoses: Diabetic ketoacidosis secondary to SGLP2 inhibitor SHANNAN CKD stage IIIb Elevated anion gap metabolic acidosis-resolved [id number] A1c is 7.0 Hypertension Hyperlipidemia Depression Anxiety Physical Exam Narrative Patient reports that his head hurts a little bit at the point where it hit the floor last evening after his fall but denies any other significant issues. His scans were negative. He states he is knowledgeable on using a pen for administration of insulin. Const alert, oriented x3, no apparent distress, average body habitus, no limitations, healthy appearing and well nourished Constitutional Narrative: Upper middle-aged white male in a chair, watching television, appears comfortable nontoxic General Appearance: cooperative, comfortable, well kempt and well developed Orientation / Consciousness: awake Exam Limitations: no limitations HEENT normocephalic, head/scalp atraumatic, hearing grossly normal bilaterally, moist oral mucous membranes and oropharynx normal HEENT Narrative: Dentition is fair, Mallampati is 2-3, no thrush Eyes PERRL, EOMs intact bilaterally and conjunctivae normal Eyes Narrative: No scleral icterus Neck no lymphadenopathy, supple, no JVD and no carotid bruits Neck Narrative: Trachea midline, no thyroid enlargement Resp normal respiratory effort, no retractions, no use of accessory muscles and clear to auscultation bilaterally Auscultation: Negative for crackles, rales, rhonchi or wheezes Cardio regular rate, regular rhythm, S1 normal heart sound, S2 normal heart sound, no murmurs, no rub, no gallops, no clicks and no JVD GI normal to inspection, nondistended, normoactive bowel sounds, soft to palpation, non-tender and non-distended; Negative for hepatosplenomegaly Extremity normal to inspection, full ROM and no clubbing, cyanosis or edema Extremity Narrative: 2+ pedal pulses Skin no rashes or lesions noted, no wounds, skin turgor normal, no jaundice, no petechiae and no mottling Skin Narrative: No ecchymosis noted on shoulder or head from fall Neuro oriented x3, CN's II-XII intact bilaterally, moves all extremities and no focal motor deficits Neuro Narrative: No sensory deficits Sensorium / Orientation: awake and alert Speech: speech normal Motor Exam: strength 5/5 throughout Psych affect normal Psych Narrative: Very pleasant Weight / BMI Weight Weight: 80.4 kg Body Mass Index (BMI) 24.1 ABG / Lab / Microbiology Data Result Diagrams: 12/02/21 04:55 12/03/21 04:05 Laboratory: Laboratory Results - last 24 hr 12/02/21 11:00: POC Glucose 173 H 12/02/21 12:00: Sodium 139, Potassium 5.8 H, Chloride 116 H, Carbon Dioxide 18.0 L, Anion Gap 5, BUN 34 H, Creatinine 1.45 H, Estim Creat Clear Calc 51.21, Est GFR (MDRD) Af Amer 62, Est GFR (MDRD) Non-Af 51 L, BUN/Creatinine Ratio 23.4 H, Glucose 188 H, Calcium 7.5 L 12/02/21 12:02: POC Glucose 160 H 12/02/21 13:00: POC Glucose 160 H 12/02/21 13:59: POC Glucose 141 H 12/02/21 16:50: POC Glucose 133 H 12/03/21 01:09: POC Glucose 144 H 12/03/21 04:05: Sodium 137, Potassium 4.3, Chloride 111 H, Carbon Dioxide 19.0 L , Anion Gap 7, BUN 30 H, Creatinine 1.39 H, Estim Creat Clear Calc 53.42, Est GFR (MDRD) Af Amer 65, Est GFR (MDRD) Non-Af 54 L, BUN/Creatinine Ratio 21.6 H, Glucose 134 H, Calcium 7.8 L 12/03/21 07:50: POC Glucose 118 H Radiography Diagnostic Testing: Radiology Impression Brain CT 12/02/21 18:22 IMPRESSION: No acute intracranial hemorrhage or mass effect. Electronically Signed: Tim Berry MD ([place]) at 19:08 EDT , Shoulder X-Ray 12/02/21 18:36 IMPRESSION: 1. No acute fracture or malalignment. 2. Sequela of old injury of the left acromioclavicular and coracoclavicular articulations. Electronically Signed: Tim Berry MD ([place]) at 19:10 EDT , D/C Instructions Discharge Diet: Low fat / Low cholesterol and 1800 Calorie Control Diet Discharge Activity: Return to Normal Activity Meaningful Use Info Meaningful Use Diagnoses (Choose all that apply): None applicable Discharge Plan Admission Admit Date/Time: 12/02/21 07:10 Primary Reason for Your Visit: Diabetic ketoacidosis induced by her SLG P2 inhibitor Attending Provider: Clari Maurer Primary Care Provider: Suhail Loaiza Discharge Orders/Prescriptions Prescriptions: New metformin 500 mg tablet 500 mg PO BID Qty: 120 RF: 0 Levemir FlexTouch U-100 Insuln 100 unit/mL (3 mL) insulin pen 10 unit subcut QHS Qty: 15 RF: 0 (DME) pen needle, diabetic 30 gauge x 3/16 needle See Rx Instructions .ROUTE .MEDSUPPLY Qty: 100 RF: 0 Alcoh-Wipe 70 % towelette 1 towel miscellaneous QHS Qty: 100 RF: 0 Continued pioglitazone 45 MG tablet 45 mg PO DAILY RF: 0 citalopram 20 MG tablet 20 mg PO DAILY RF: 0 simvastatin 20 MG tablet 20 mg PO QHS RF: 0 mirtazapine 30 MG tablet 45 mg PO QHS RF: 0 lisinopril 10 MG tablet 45 mg PO DAILY RF: 0 lorazepam 1 MG tablet 1 mg PO BID PRN PRN (Reason: Anxiety) RF: 0 Januvia 50 MG tablet 50 mg PO DAILY RF: 0 metoprolol succinate 25 MG tablet extended release 24 hr 25 mg PO DAILY RF: 0 diphenoxylate-atropine 1 TABLET tablet 1 tab PO TID PRN PRN (Reason: Diarrhea) Qty: 30 RF: 0 loperamide [Imodium A-D] 2 mg capsule 2 mg PO Q6H PRN (Reason: loose stool) Qty: 20 RF: 0 Discontinued metformin 500 MG tablet 500 mg PO DAILY RF: 0 glimepiride 4 MG tablet 4 mg PO BID RF: 0 Trulicity 0.75 mg/0.5 mL pen injector 0.75 mg SUBCUT MO RF: 0 Farxiga 10 mg tablet 10 mg PO DAILY RF: 0 Referrals / Follow Up: Suhail Loaiza MD [Primary Care Provider] - In 1 Week Dipesh Velázquez MD [STAFF PHYSICIAN] - Within 1 Month (diabetes mgt) Disposition Disposition (needs filled in before D/C Order can be placed): Home, Self Care Charges/Coding Visit Charges Inpatient E&M: 78195 Disch Hosp
[2021-12-03] MEDS: Metoprolol(XL)Succ 25 MG Tablet PO (11:09)
== END 2021-12-03 11:50 | disposition home or self-care (01) | DRG 638 ==
LOC: ED 07:17 → ICU 07:31
PROVIDERS: Hospitalist; Admitting Provider Internal Medicine; Emergency Provider Emergency Medicine; PCP Family Medicine; Visit Provider Internal Medicine
DX: E11.10 Type 2 diabetes mellitus with ketoacidosis without coma (principal); N17.9 Acute kidney failure, unspecified; E11.22 Type 2 diabetes mellitus with diabetic chronic kidney disease; N18.32 Chronic kidney disease, stage 3b; E86.0 Dehydration; E78.5 Hyperlipidemia, unspecified; I12.9 Hypertensive chronic kidney disease with stage 1 through stage 4 chronic kidney disease, or unspecified chronic kidney disease; F41.9 Anxiety disorder, unspecified; Z79.84 Long term (current) use of oral hypoglycemic drugs; Z87.891 Personal history of nicotine dependence; F32.A Depression, unspecified; Z79.899 Other long term (current) drug therapy; T38.3X5A Adverse effect of insulin and oral hypoglycemic [antidiabetic] drugs, initial encounter
CPT/HCPCS: 70450; 73030; 80048; 80076; 82009; 82803; 82962; 83036; 83605; 83690; 83735; 85025; 97802; 99285; J7030; J7050; A4216; J2405

== ENCOUNTER 2023-01-08 13:06 | Emergency (ER) | payer MEDICARE, MEDICAID, SELFPAY ==
[2023-01-08 13:07] VITALS: BP 109/70; PULSE 110; RESP 16; TEMP 36; O2SAT 97; BMI 21.9
--- NOTE | 2023-01-08 14:04 | RAD_ITS ---
STUDY: X-RAY - LUMBAR SPINE REASON FOR EXAM: Male, 72 years old. Injury/Pain TECHNIQUE: XR Spine Lumbar 3 Views COMPARISON: 04.17.17 FINDINGS: Normal lumbar lordosis. There is no substantial scoliosis. There is a normal alignment of the vertebrae. There is multilevel endplate spondylosis of the lumbar vertebrae. There is multi-level degenerative disc disease with multi-level disc space narrowing. There are atherosclerotic vascular calcifications. The soft tissue structures are unremarkable. RAD/Lumbar Spine 2 or 3 Views IMPRESSION: Degenerative changes of the spine, as detailed above. Electronically Signed: Laron Ash MD at 14:28 EDT ,
[2023-01-08] MEDS: HYDROcodone Bitartrate/Apap 5/325 Tablet PO (14:09)
--- NOTE | 2023-01-08 15:30 | ED.VIS.BACK ---
HPI History of Present Illness Chief Complaint: Back Informant: patient Onset/Context/Timing Onset: Weeks (1) Context: Gradual Onset Timing: Continuous Quality: - (Spasm) Location: Lumbar and Buttock Worsened by: improves with Movement Relieved by: Medications Associated Symptoms Associated Symptoms: Negative for Numbness, Tingling, Radiation to Right Leg, Radiation to Left Leg, Fever, Abdominal Pain, Dysuria, Unable to Ambulate, Unable to Transfer, Urinary Retention, Urinary Incontinence, Constipation or Fecal Incontinence Narrative Narrative: Patient presents with pain in his low back and left posterior hip area that began 1 week ago. Patient states he fell 3 weeks ago and did not have any pain initially. Patient states the pain developed last week. Patient describes it as a spasm sensation. Patient states it is over the posterior left hip and gluteal area and radiates up into his left lower lumbar area. Patient states the pain is constant. Patient states pain is worse with movement. Patient states he has some pain medication at home which he was taking which helped. [facility] Medical History Anxiety Depression Diarrhea Hyperlipidemia Hypertension Kidney disease Type II diabetes mellitus Home Medications citalopram 20 mg tablet 20 mg PO DAILY 07/02/18 [History Last Taken Unknown] lisinopril 10 mg tablet 45 mg PO DAILY 07/02/18 [History Last Taken Unknown] lorazepam 1 mg tablet 1 mg PO BID PRN PRN Anxiety 07/02/18 [History Last Taken Unknown] mirtazapine 30 mg tablet 45 mg PO QHS 07/02/18 [History Last Taken Unknown] pioglitazone 45 mg tablet 45 mg PO DAILY 07/02/18 [History Last Taken Unknown] simvastatin 20 mg tablet 20 mg PO QHS 07/02/18 [History Last Taken Unknown] sitagliptin phosphate 50 mg tablet (Januvia) 50 mg PO DAILY 07/02/18 [History Last Taken Unknown] diphenoxylate-atropine 2.5 mg-0.025 mg tablet 1 tab PO TID PRN PRN Diarrhea #30 tabs 07/20/18 [Rx Last Taken Unknown] metoprolol succinate 25 mg tablet,extended release 24 hr 25 mg PO DAILY 07/20/18 [History Last Taken Unknown] loperamide 2 mg capsule (Imodium A-D) 2 mg PO Q6H PRN loose stool #20 caps 01/13/21 [Rx Last Taken Unknown] insulin detemir U-100 100 unit/mL (3 mL) subcutaneous pen (Levemir FlexTouch U-100 Insulin) 10 unit (0.1 mL) subcut QHS #15 mL 12/03/21 [Rx Last Taken Unknown] isopropyl alcohol 70 % towelette (Alcoh-Wipe) 1 towel miscellaneous QHS #100 ea 12/03/21 [Rx Last Taken Unknown] metformin 500 mg tablet 500 mg PO BID #120 tabs 12/03/21 [Rx Last Taken Unknown] pen needle, diabetic 30 gauge x 3/16 #100 ea 12/03/21 [Rx Last Taken Unknown] Allergy/AdvReac Type Severity Reaction Status Date / Time dapagliflozin [From [facility]] AdvReac Severe DKA Verified 01/08/23 13:09 Family History Other Diabetes Hypertension Social History household members: none housing: apartment other: Patient does not drive Smoking Status: Former smoker alcohol intake: never substance use type: does not use diet: diabetic ROS ROS ED Constitutional Constitutional ED: Denies chills or fever(s) Eyes Eyes: Denies blurry vision or change in vision ENT ENT ED: Denies rhinorrhea or sore throat Cardiovascular Cardiovascular: Denies chest pain or palpitations Respiratory/Chest Respiratory/Chest: Reports cough; Denies dyspnea Gastrointestinal Gastrointestinal: Denies nausea or vomiting Genitourinary Genitourinary ED: Denies dysuria or hematuria Musculoskeletal Musculoskeletal: Reports back pain; Denies neck pain Integumentary Denies abscess or rash Neurologic Neurologic: Denies headache(s) or weakness Allergic/Immunologic Allergic/Immunologic ED: Denies mouth swelling or urticaria EXAM Physical Exam Const Vital Signs: 01/08/23 13:07 Temperature 96.8 F L Temperature Source Temporal Pulse Rate 110 H Respiratory Rate 16 Blood Pressure 109/70 Blood Pressure Mean 83 Pulse Ox 97 Oxygen Delivery Method Room Air Positive well nourished and well developed General Appearance ED: well developed and NAD HEENT Reports moist mucous membranes Neck supple and no JVD Resp normal respiratory effort and clear to auscultation bilaterally Cardio regular rate and regular rhythm GI soft to palpation and non-tender Back/Spine Back/Spine Narrative: There is tenderness over the left lower lumbar paraspinal muscles and posterior left hip. There is no bony crepitance or step-off. There is no obvious deformity noted. Range of motion was somewhat limited in all motions of the lumbar spine secondary to pain. Lumbar Spine / Lower Back: ROM limited and straight leg raise negative bilaterally Extremity Extremity Narrative: There is mild tenderness over the posterior aspect of the left hip. There is good range of motion. There is no laxity appreciated. General Extremety ED: Negative for edema General Extremity: Negative for edema Neuro oriented x3 and no sensory deficits noted Sensorium / Orientation: alert Motor Exam: strength 5/5 throughout Deep Tendon Reflexes: Rt Patellar (L4): 2+, Lt Patellar (L4): 2+, Rt Ankle (S1): 2+ and Lt Ankle (S1): 2+ Deep Tendon Reflexes Back: Rt Patellar (L4): 2+, Lt Patellar (L4): 2+, Rt Ankle (S1): 2+ and Lt Ankle (S1): 2+ Psych mental status grossly normal MDM MDM MDM Narrative Medical decision making narrative: Since the patient fell 3 weeks ago, differential diagnosis includes compression fracture of the lumbar spine, sacral fracture, pelvic fracture, and lumbosacral strain. X-rays of the lumbar spine will be obtained to assess for fracture. Radiography Diagnostic Testing: Clinical Impression(s) from Imaging Studies Lumbar Spine X-Ray 01/08/23 14:04 IMPRESSION: Degenerative changes of the spine, as detailed above. Electronically Signed: Laron Ash MD at 14:28 EDT Reading Location ID and State: [facility] / [place] , Service support , X-rays of the lumbar spine were obtained. There are 3 views. On my independent interpretation, there is no acute fracture or spondylolisthesis. There are some degenerative changes noted. Radiologist also interpreted the x-rays and agrees. Treatment and Re-Evaluation Narrative: Patient was given a dose of [place] here. Patient was feeling better on reevaluation. Patient was advised of his findings. Patient was instructed to use ice to the area. Patient was instructed to follow-up with his primary care physician in 5 to 7 days. Patient understood and was agreeable with the plan. All questions were answered. Discharge Plan Triage Chief Complaint: Back ED Provider: Francisco Warren Dx/Rx/DC Orders Clinical Impression: Lumbar contusion, Fall Instructions: ED Back Contusion Prescriptions: No Action pioglitazone 45 MG tablet 45 mg PO DAILY citalopram 20 MG tablet 20 mg PO DAILY simvastatin 20 MG tablet 20 mg PO QHS mirtazapine 30 MG tablet 45 mg PO QHS lisinopril 10 MG tablet 45 mg PO DAILY lorazepam 1 MG tablet 1 mg PO BID PRN PRN (Reason: Anxiety) Januvia 50 MG tablet 50 mg PO DAILY metoprolol succinate 25 MG tablet extended release 24 hr 25 mg PO DAILY diphenoxylate-atropine 1 TABLET tablet 1 tab PO TID PRN PRN (Reason: Diarrhea) Qty: 30 0RF loperamide [Imodium A-D] 2 mg capsule 2 mg PO Q6H PRN (Reason: loose stool) Qty: 20 0RF metformin 500 mg tablet 500 mg PO BID Qty: 120 0RF Levemir FlexTouch U100 Insulin 100 unit/mL (3 mL) insulin pen 10 unit subcut QHS Qty: 15 0RF (DME) pen needle, diabetic 30 gauge x 3/16 needle See Rx Instructions .ROUTE .MEDSUPPLY Qty: 100 0RF Rx Instructions: As directed Alcoh-Wipe 70 % towelette 1 towel miscellaneous QHS Qty: 100 0RF Primary Care Provider: Suhail Loaiza Referrals: Suhail Loaiza MD [Primary Care Provider] - 5-7 Days Disposition Disposition: Home, Self Care Discharge Date/Time: 01/08/23 15:40
== END 2023-01-08 15:40 | disposition home or self-care (01) ==
PROVIDERS: Emergency Provider Emergency Medicine; PCP Family Medicine; Visit Provider Emergency Medicine
DX: S30.0XXA Contusion of lower back and pelvis, initial encounter (principal); E11.9 Type 2 diabetes mellitus without complications; E78.5 Hyperlipidemia, unspecified; I10 Essential (primary) hypertension; Z87.891 Personal history of nicotine dependence; W19.XXXA Unspecified fall, initial encounter
CPT/HCPCS: 72100; 99282

== ENCOUNTER 2023-02-17 12:29 | Emergency (ER) | payer MEDICARE, MEDICAID, SELFPAY ==
[2023-02-17 12:31] VITALS: BP 133/75; PULSE 96; RESP 18; TEMP 36.6; O2SAT 99; BMI 21.4
--- NOTE | 2023-02-17 13:05 | CT_ITS ---
INDICATION: fall EXAMINATION: CT BRAIN - CT Head or Brain W/O Contrast Injection TECHNIQUE: Multiple axial images were obtained of the head without intravenous contrast. A radiation dose optimization technique was used for this scan. IV Contrast dosage and agent: None. RADIATION DOSAGE (If Supplied By Facility): CTDIvol = ( 44.99 ) mGy, DLP = ( 779.24 ) mGycm COMPARISON: No prior examinations are available for comparison. FINDINGS: BRAIN PARENCHYMA: No intra- or extra-axial hemorrhage. No evidence of acute infarct. Chronic periventricular deep white matter changes and small old lacunar infarcts. There is preservation of the cortes/white matter interface. Posterior fossa structures are unremarkable. CSF SPACES: Appropriate for age. No hydrocephalus. Basal cisterns are patent. CALVARIUM, SKULL BASE, PARANASAL SINUSES AND MASTOID AIR CELLS: Clear. No discrete lytic or blastic abnormalities. ORBITS: The globes are grossly intact. CT/Brain/Head without Contrast IMPRESSION: 1. Chronic involutional changes of the brain. 2. No acute intracranial process. Electronically Signed: Seven Marti MD at 14:14 EDT ,
--- NOTE | 2023-02-17 13:06 | EKG12_ITS ---
Test Reason : FALL/SYNCOPE Blood Pressure : / mmHG Vent. Rate : 092 BPM Atrial Rate : 092 BPM P-R Int : 150 ms QRS Dur : 084 ms QT Int : 354 ms P-R-T Axes : 030 048 054 degrees QTc Int : 437 ms Normal sinus rhythm Normal ECG Confirmed by WINIFRED MCHUGH, BLADE ([id number]), fashion editor LUIS LAGUNAS ([id number]) on 02/22/2023 8:26:32 AM Referred By: ROMERO/NEFTALI Confirmed By:RICKY VITALE MD
--- NOTE | 2023-02-17 13:07 | CT_ITS ---
INDICATION: fall, pain EXAMINATION: CT ABDOMEN AND PELVIS WITHOUT CONTRAST - CT Abdomen And Pelvis W/O Contrast Injection TECHNIQUE: Helically acquired images were obtained of the abdomen and pelvis without oral or IV contrast. A radiation dose optimization technique was used for this scan. IV Contrast dosage and agent: None. Oral contrast: None. RADIATION DOSAGE (If Supplied By Facility): CTDIvol = ( 16.50 ) mGy, DLP = ( 1067.64 ) mGycm COMPARISON: No prior examinations are available for comparison. FINDINGS: The evaluation of the solid organs is limited without intravenous contrast and focal lesion can be missed. LOWER CHEST: Lung bases are clear. No cardiomegaly or pericardial effusion. Coronary calcifications. LIVER: No focal lesion seen in the liver on this noncontrast examination and considering motion. GALLBLADDER AND BILIARY TREE: Contracted gallbladder with multiple gallstones. No intra- or extrahepatic biliary ductal dilation. PANCREAS: No focal cystic or solid mass. SPLEEN: Normal size without focal cystic or solid mass. ADRENAL GLANDS: No nodules. KIDNEYS AND URETERS: Normal renal size and position. No hydronephrosis. PERITONEUM: No ascites or free air. No other fluid collection. BOWEL: Distended stomach. Normal caliber small bowel loops. Fecal retention. The appendix is not definitely identified. LYMPH NODES: No enlarged mesenteric or retroperitoneal lymph nodes. VESSELS: Atherosclerotic ossifications of the abdominal aorta without evidence of aneurysm. URINARY BLADDER: Unremarkable. REPRODUCTIVE ORGANS: No pelvic mass. Fluid density in the right groin could be due to small right renal hernia. ABDOMINAL WALL: No discrete abdominal or pelvic wall hernia is otherwise seen. BONES: No lytic or blastic abnormality. No demonstrated acute fracture. CT/Abdomen/Pelvis without Cont IMPRESSION: 1. No evidence of solid organ injury, free air or free fluid on this noncontrast examination. 2. No focal acute inflammatory process. 3. Contracted gallbladder and gallstones. 4. No demonstrated acute fracture. Electronically Signed: Seven Marti MD at 14:23 EDT ,
[2023-02-17 13:35] LABS: Absolute Lymphocyte Count 1.09 X10^3/uL (0.83-4.51); Absolute Neutrophil Count 4.7 X10^3/uL (2.0-7.7); Basophil# 0.06 X10^3/uL; Basophil% 0.9 % (0-1); Eosinophils% 2.9 % (0-5); Hematocrit 40.2 % (40-54); Lymphocyte # 1.09 X10^3/ul (0.83-4.51); Lymphocyte % 16.1 % (19-41); Mean Corp Hgb Conc 32.3 g/dL (32-36); Mean Corpuscular Volume 92.6 fL (80-94); Mean Platelet Vol. 9.8 fl (6.2-12.0); Monocyte# 0.76 X10^3/uL; Monocyte% 11.2 % (0-10); NRBC Flagged by Analyzer 0 % (0-5); Neutrophil # 4.66 X10^3/uL (2.7-7.7); Neutrophil % 68.8 % (47-70); Platelet Count 153 K/mm3 (150-450); RBC Distribution Width CV 13.8 % (11.6-14.6); RBC Distribution Width SD 46.7 fl (35.1-43.9); Red Blood Count 4.34 M/mm3 (4.6-6.2); White Blood Count 6.8 K/mm3 (4.4-11.0)
[2023-02-17] MEDS: 0.9% Normal Saline 1,000 ML 150 ML IV (13:42)
[2023-02-17 13:49] LABS: Anion Gap 4 (5-15); BUN 30 mg/dL (7-18); BUN/Creat Ratio 21.6 RATIO (10-20); Calcium,Total 8.7 mg/dL (8.5-10.1); Chloride 106 mmol/L (98-107); Creatinine, Serum 1.39 mg/dL (0.70-1.30); EST Glomerular Filtration Rate 54 mL/min (>60); Est Glom Filt Rate - Afr Amer 65 mL/min (>60); Estimated Creatinine Clearance 48.68 ml/min; Glucose 134 mg/dL (74-106); Potassium 4.8 mmol/L (3.5-5.1); Sodium Level 138 mmol/L (136-145)
--- NOTE | 2023-02-17 13:49 | EX.ED.DYSGE1 ---
HPI History of Present Illness Chief Complaint: Fall Informant: patient Onset/Context/Timing Onset: Today Narrative Narrative: Patient presents after having 2 falls today. He states that he went out to breakfast with a friend today. He was coming back to his apartment he has to go down 4 steps. He states he fell down the last step but is not member feeling lightheaded or catching his toe. He is not sure why he fell. He was able to get himself back up and into his apartment. He took a nap. When he woke up he had some back tightness and some slight right knee pain. He fell. He does not believe he passed out. He has no chest pain or palpitations. He denies striking his head or having a headache. He is not on anticoagulant. [facility] Medical History Anxiety Depression Diarrhea Hyperlipidemia Hypertension Kidney disease Type II diabetes mellitus Home Medications citalopram 20 mg tablet 20 mg PO DAILY 07/02/18 [History Last Taken Unknown] lisinopril 10 mg tablet 45 mg PO DAILY 07/02/18 [History Last Taken Unknown] lorazepam 1 mg tablet 1 mg PO BID PRN PRN Anxiety 07/02/18 [History Last Taken Unknown] mirtazapine 30 mg tablet 45 mg PO QHS 07/02/18 [History Last Taken Unknown] pioglitazone 45 mg tablet 45 mg PO DAILY 07/02/18 [History Last Taken Unknown] simvastatin 20 mg tablet 20 mg PO QHS 07/02/18 [History Last Taken Unknown] sitagliptin phosphate 50 mg tablet (Januvia) 50 mg PO DAILY 07/02/18 [History Last Taken Unknown] diphenoxylate-atropine 2.5 mg-0.025 mg tablet 1 tab PO TID PRN PRN Diarrhea #30 tabs 07/20/18 [Rx Last Taken Unknown] metoprolol succinate 25 mg tablet,extended release 24 hr 25 mg PO DAILY 07/20/18 [History Last Taken Unknown] loperamide 2 mg capsule (Imodium A-D) 2 mg PO Q6H PRN loose stool #20 caps 01/13/21 [Rx Last Taken Unknown] insulin detemir U-100 100 unit/mL (3 mL) subcutaneous pen (Levemir FlexTouch U-100 Insulin) 10 unit (0.1 mL) subcut QHS #15 mL 12/03/21 [Rx Last Taken Unknown] isopropyl alcohol 70 % towelette (Alcoh-Wipe) 1 towel miscellaneous QHS #100 ea 12/03/21 [Rx Last Taken Unknown] metformin 500 mg tablet 500 mg PO BID #120 tabs 12/03/21 [Rx Last Taken Unknown] pen needle, diabetic 30 gauge x 3/16 #100 ea 12/03/21 [Rx Last Taken Unknown] hydrocodone-acetaminophen 5-325mg 5mg-325mg 1 tab PO Q6H PRN PRN Pain 3 days #10 TABLETS 02/17/23 [Rx Last Taken Unknown] Allergy/AdvReac Type Severity Reaction Status Date / Time dapagliflozin [From [facility]] AdvReac Severe DKA Verified 02/17/23 12:31 Family History Other Diabetes Hypertension Social History household members: none housing: apartment other: Patient does not drive Smoking Status: Former smoker alcohol intake: never substance use type: does not use diet: diabetic ROS ROS ED Constitutional Constitutional ED: Denies chills or fever(s) Eyes Eyes: Denies change in vision or discharge from eye(s) ENT ENT ED: Denies discharge from eye(s), rhinorrhea or sore throat Cardiovascular Cardiovascular: Denies chest pain or palpitations Respiratory/Chest Respiratory/Chest: Denies cough or dyspnea Gastrointestinal Gastrointestinal: Denies abdominal pain, diarrhea, nausea or vomiting Genitourinary Genitourinary ED: Denies dysuria Musculoskeletal Musculoskeletal: Reports back pain and extremity pain Integumentary Reports Abrasions; Denies rash Neurologic Neurologic: Denies headache(s) or weakness Psychiatric Psychiatric: Denies anxiety or depression Endocrine Endocrinology: Denies polydipsia or polyuria Allergic/Immunologic Allergic/Immunologic ED: Denies lip swelling or urticaria EXAM Physical Exam Const Vital Signs: 02/17/23 12:31 02/17/23 12:35 Temperature 97.8 F Temperature Source Oral Pulse Rate 96 Respiratory Rate 18 Respiratory Effort Normal Non-Labored Respiratory Depth Normal Respiratory Pattern Normal Blood Pressure 133/75 H Blood Pressure Mean 94 Pulse Ox 99 Oxygen Delivery Method Room Air Positive well nourished and well developed General Appearance ED: well developed HEENT Reports normocephalic and head/scalp atraumatic Eyes PERRL and EOMs intact bilaterally Neck supple Chest Wall inspection of chest normal and palpation of chest normal Resp normal respiratory effort and clear to auscultation bilaterally Cardio regular rate and regular rhythm GI normal to inspection, nondistended, normoactive bowel sounds Palpation: soft Back/Spine Back/Spine Narrative: Mild tenderness over the left SI joint. No midline lumbar tenderness. Extremity Extremity Narrative: Skin tear noted to the lateral extensor surface of the left elbow. No bony tenderness with full range of motion. Abrasion noted to the medial aspect of the right knee. No bony tenderness with full range of motion. Neuro oriented x3 and no sensory deficits noted Sensorium / Orientation: alert Motor Exam: strength 5/5 throughout Psych mental status grossly normal Skin Skin Narrative: Skin tear and abrasions as noted above. 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 EKG obtained to evaluate for cardiac arrhythmia/ischemia. Labwork obtained to evaluate for leukocytosis, anemia, and electrolyte derangement. CT scan of the head as well as abdomen and pelvis obtained to evaluate for acute injury. Lab Data Attestation: I reviewed the patient's lab results. Labs: Laboratory Results - last 24 hr 02/17/23 13:24 WBC 6.8 RBC 4.34 L Hgb 13.0 Hct 40.2 MCV 92.6 MCH 30.0 MCHC 32.3 RDW Std Deviation 46.7 H RDW Coeff of Charlie 13.8 Plt Count 153 MPV 9.8 Immature Gran % (Auto) 0.100 Neut % (Auto) 68.8 Lymph % (Auto) 16.1 L Ceiba % (Auto) 11.2 H Eos % (Auto) 2.9 Baso % (Auto) 0.9 Absolute Neuts (auto) 4.7 Absolute Lymphs (auto) 1.09 Nucleated RBC % 0 Sodium 138 Potassium 4.8 Chloride 106 Carbon Dioxide 28.0 Anion Gap 4 L BUN 30 H Creatinine 1.39 H Estim Creat Clear Calc 48.68 Est GFR (MDRD) Af Amer 65 Est GFR (MDRD) Non-Af 54 L BUN/Creatinine Ratio 21.6 H Glucose 134 H Calcium 8.7 Radiography Diagnostic Testing: Clinical Impression(s) from Imaging Studies Brain CT 02/17/23 13:05 IMPRESSION: 1. Chronic involutional changes of the brain. 2. No acute intracranial process. Electronically Signed: Seven Marti MD at 14:14 EDT , Abdomen/Pelvis CT 02/17/23 13:07 IMPRESSION: 1. No evidence of solid organ injury, free air or free fluid on this noncontrast examination. 2. No focal acute inflammatory process. 3. Contracted gallbladder and gallstones. 4. No demonstrated acute fracture. Electronically Signed: Seven Marti MD at 14:23 EDT , EKG Initial EKG: Attestation: I personally reviewed and interpreted this EKG as follows: Interpretation: Sinus Rhythm (Sinus at 92 with no acute ischemia.) Treatment and Re-Evaluation :: CBC was normal white count at 6.8 with normal differential. Hemoglobin is normal at 13. Chemistry studies unremarkable. BUN is 30 and creatinine is 1.39. This is consistent with his most recent labs. CT scan of the head reveals no acute findings. CT scan of the abdomen and pelvis reveals no solid organ injury. No fracture. Patient be given a dose of [place] here. He will be given a short course of [place] for home. His left arm skin tear was cleansed and Steri-Strips placed. Return instructions given. Discharge Plan Triage Chief Complaint: Fall Other Complaint: Back ED Provider: Tori Martin Dx/Rx/DC Orders Clinical Impression: Lumbar strain, Skin tear, Fall Instructions: ED Back Pain (Acute or Chronic), ED Fall with Uncertain Cause, ED Skin Avulsion Prescriptions: New hydrocodone-acetaminophen 5-325 mg tablet 1 tab PO Q6H PRN PRN (Reason: Pain) 3 Days Qty: 10 0RF No Action pioglitazone 45 MG tablet 45 mg PO DAILY citalopram 20 MG tablet 20 mg PO DAILY simvastatin 20 MG tablet 20 mg PO QHS mirtazapine 30 MG tablet 45 mg PO QHS lisinopril 10 MG tablet 45 mg PO DAILY lorazepam 1 MG tablet 1 mg PO BID PRN PRN (Reason: Anxiety) Januvia 50 MG tablet 50 mg PO DAILY metoprolol succinate 25 MG tablet extended release 24 hr 25 mg PO DAILY diphenoxylate-atropine 1 TABLET tablet 1 tab PO TID PRN PRN (Reason: Diarrhea) Qty: 30 0RF loperamide [Imodium A-D] 2 mg capsule 2 mg PO Q6H PRN (Reason: loose stool) Qty: 20 0RF metformin 500 mg tablet 500 mg PO BID Qty: 120 0RF Levemir FlexTouch U100 Insulin 100 unit/mL (3 mL) insulin pen 10 unit subcut QHS Qty: 15 0RF (DME) pen needle, diabetic 30 gauge x 3/16 needle See Rx Instructions .ROUTE .MEDSUPPLY Qty: 100 0RF Rx Instructions: As directed Alcoh-Wipe 70 % towelette 1 towel miscellaneous QHS Qty: 100 0RF Primary Care Provider: Suhail Loaiza Referrals: Suhail Loaiza MD [Primary Care Provider] - 1-2 Weeks Disposition Disposition: Home, Self Care
[2023-02-17] MEDS: HYDROcodone Bitartrate/Apap 5/325 Tablet PO (15:12)
[2023-02-17 15:28] VITALS: BP 123/64; PULSE 78; RESP 14; TEMP 36.6; O2SAT 100
== END 2023-02-17 15:29 | disposition home or self-care (01) ==
PROVIDERS: Emergency Provider Emergency Medicine; PCP Family Medicine; Visit Provider Emergency Medicine
DX: S39.012A Strain of muscle, fascia and tendon of lower back, initial encounter (principal); E11.9 Type 2 diabetes mellitus without complications; Z79.4 Long term (current) use of insulin; S51.012A Laceration without foreign body of left elbow, initial encounter; W10.8XXA Fall (on) (from) other stairs and steps, initial encounter; Y93.01 Activity, walking, marching and hiking; Y99.8 Other external cause status; Y92.038 Other place in apartment as the place of occurrence of the external cause; I10 Essential (primary) hypertension; E78.5 Hyperlipidemia, unspecified; Z79.84 Long term (current) use of oral hypoglycemic drugs; Z79.899 Other long term (current) drug therapy; Z87.891 Personal history of nicotine dependence
CPT/HCPCS: 70450; 74176; 80048; 85025; 93005; 96360; 96361; 99285; J7030

== ENCOUNTER 2023-06-07 05:48 | Emergency (ER) | payer MEDICARE, MEDICAID, SELFPAY ==
[2023-06-07 05:49] VITALS: BP 152/73; PULSE 85; RESP 16; TEMP 36.1; O2SAT 98; BMI 21.2
--- NOTE | 2023-06-07 06:01 | EDS_ITS ---
HPI History of Present Illness Chief Complaint: Back Informant: patient Onset/Context/Timing Onset: Weeks Context: Gradual Onset Timing: Intermittent Narrative Narrative: Patient presents secondary to back spasms. Patient has been having intermittent back spasms for the past week. He states he will get spasm across his lower back and some radiation down his left leg. He was seen at his PCPs office and given a prescription for Zanaflex. His last dose was at 1030 last evening. He states he did take some Tylenol yesterday but otherwise has not been taking any thing for pain. He has had a history of chronic intermittent back problems, but no recent fall. He has never had injections or surgery on his back. [facility] Medical History Anxiety Depression Diarrhea Hyperlipidemia Hypertension Kidney disease Type II diabetes mellitus Home Medications citalopram 20 mg tablet 20 mg PO DAILY 07/02/18 [History Last Taken Unknown] lisinopril 10 mg tablet 45 mg PO DAILY 07/02/18 [History Last Taken Unknown] lorazepam 1 mg tablet 1 mg PO BID PRN PRN Anxiety 07/02/18 [History Last Taken Unknown] mirtazapine 30 mg tablet 45 mg PO QHS 07/02/18 [History Last Taken Unknown] pioglitazone 45 mg tablet 45 mg PO DAILY 07/02/18 [History Last Taken Unknown] simvastatin 20 mg tablet 20 mg PO QHS 07/02/18 [History Last Taken Unknown] sitagliptin phosphate 50 mg tablet (Januvia) 50 mg PO DAILY 07/02/18 [History Last Taken Unknown] diphenoxylate-atropine 2.5 mg-0.025 mg tablet 1 tab PO TID PRN PRN Diarrhea #30 tabs 07/20/18 [Rx Last Taken Unknown] metoprolol succinate 25 mg tablet,extended release 24 hr 25 mg PO DAILY 07/20/18 [History Last Taken Unknown] loperamide 2 mg capsule (Imodium A-D) 2 mg PO Q6H PRN loose stool #20 caps 01/13/21 [Rx Last Taken Unknown] insulin detemir U-100 100 unit/mL (3 mL) subcutaneous pen (Levemir FlexTouch U- 100 Insulin) 10 unit (0.1 mL) subcut QHS #15 mL 12/03/21 [Rx Last Taken Unknown] isopropyl alcohol 70 % towelette (Alcoh-Wipe) 1 towel miscellaneous QHS #100 ea 12/03/21 [Rx Last Taken Unknown] metformin 500 mg tablet 500 mg PO BID #120 tabs 12/03/21 [Rx Last Taken Unknown] pen needle, diabetic 30 gauge x 3/ #100 ea 12/03/21 [Rx Last Taken Unknown] hydrocodone-acetaminophen 5-325mg 5mg-325mg 1 tab PO Q6H PRN PRN Pain 3 days #10 TABLETS 02/17/23 [Rx Last Taken Unknown] cyclobenzaprine 10 mg tablet 10 mg PO TID PRN Muscle Spasm #15 TABLETS 06/07/23 [Rx Last Taken Unknown] hydrocodone-acetaminophen 5-325mg 5mg-325mg 1 tab PO Q6H PRN PRN Pain 3 days #10 TABLETS 06/07/23 [Rx Last Taken Unknown] Allergy/AdvReac Type Severity Reaction Status Date / Time dapagliflozin [From [facility]] AdvReac Severe DKA Verified 06/07/23 05:53 Family History Other Diabetes Hypertension Social History household members: none housing: apartment other: Patient does not drive Smoking Status: Former smoker alcohol intake: never substance use type: does not use diet: diabetic ROS ROS ED Constitutional Constitutional ED: Denies chills or fever(s) Eyes Eyes: Denies discharge from eye(s) ENT ENT ED: Denies discharge from eye(s), rhinorrhea or sore throat Cardiovascular Cardiovascular: Denies chest pain Respiratory/Chest Respiratory/Chest: Denies cough or dyspnea Gastrointestinal Gastrointestinal: Denies abdominal pain, nausea or vomiting Genitourinary Genitourinary ED: Denies dysuria Musculoskeletal Musculoskeletal: Reports back pain and extremity pain Integumentary Denies Abrasions or rash Neurologic Neurologic: Denies headache(s), paresthesias or weakness Psychiatric Psychiatric: Denies anxiety or depression Endocrine Endocrinology: Denies polydipsia or polyuria Allergic/Immunologic Allergic/Immunologic ED: Denies lip swelling or urticaria EXAM Physical Exam Const Vital Signs: 06/07/23 05:49 Temperature 97 F L Temperature Source Temporal Pulse Rate 85 Respiratory Rate 16 Blood Pressure 152/73 H Blood Pressure Mean 99 Pulse Ox 98 Oxygen Delivery Method Room Air Positive well nourished and well developed General Appearance ED: well developed HEENT Reports normocephalic and head/scalp atraumatic Eyes PERRL and EOMs intact bilaterally Neck supple Chest Wall inspection of chest normal and palpation of chest normal Resp normal respiratory effort and clear to auscultation bilaterally Cardio regular rate and regular rhythm GI non-tender Palpation: soft Back/Spine Back/Spine Narrative: Muscular tenderness in the lumbar paraspinals bilaterally, left greater than right. Extremity normal to inspection Extremity Narrative: Strong distal pulses bilaterally. Neuro oriented x3 and no sensory deficits noted Sensorium / Orientation: alert Motor Exam: strength 5/5 throughout Psych mental status grossly normal Skin no rashes or lesions noted MDM MDM MDM Narrative Medical decision making narrative: Patient's previous visits reviewed. Patient was seen in January after a fall. A CT of the flank was obtained at that time that revealed no changes to his spine and no evidence of compression fractures. Patient states he has not had any falls since that time. Patient given p.o. [place] and Flexeril. On repeat evaluation patient states the spasms are easing. I will go ahead and write him prescriptions for the same and have them filled here at the hospital pharmacy. Prior to discharge we will stand him at bedside and be sure that he can ambulate. I did advise him that with symptoms ongoing for the past week, he will take more than a single dose of this medication to significantly improve his symptoms. He voices understanding and agreement. We did have a discussion regarding the sedating side effects of these medications. He is also on Ativan twice a day and we discussed that this will also sedate him and he should avoid taking them altogether. Discharge Plan Triage Chief Complaint: Back ED Provider: Tori Martin Dx/Rx/DC Orders Clinical Impression: Back muscle spasm Instructions: ED Back Spasm, No Trauma Prescriptions: New hydrocodone-acetaminophen 5-325 mg tablet 1 tab PO Q6H PRN PRN (Reason: Pain) 3 Days Qty: 10 0RF cyclobenzaprine 10 mg tablet 10 mg PO TID PRN (Reason: Muscle Spasm) Qty: 15 0RF No Action pioglitazone 45 MG tablet 45 mg PO DAILY citalopram 20 MG tablet 20 mg PO DAILY simvastatin 20 MG tablet 20 mg PO QHS mirtazapine 30 MG tablet 45 mg PO QHS lisinopril 10 MG tablet 45 mg PO DAILY lorazepam 1 MG tablet 1 mg PO BID PRN PRN (Reason: Anxiety) Januvia 50 MG tablet 50 mg PO DAILY metoprolol succinate 25 MG tablet extended release 24 hr 25 mg PO DAILY diphenoxylate-atropine 1 TABLET tablet 1 tab PO TID PRN PRN (Reason: Diarrhea) Qty: 30 0RF loperamide [Imodium A-D] 2 mg capsule 2 mg PO Q6H PRN (Reason: loose stool) Qty: 20 0RF metformin 500 mg tablet 500 mg PO BID Qty: 120 0RF Levemir FlexTouch U100 Insulin 100 unit/mL (3 mL) insulin pen 10 unit subcut QHS Qty: 15 0RF (DME) pen needle, diabetic 30 gauge x 3/16 needle See Rx Instructions .ROUTE .MEDSUPPLY Qty: 100 0RF Rx Instructions: As directed Alcoh-Wipe 70 % towelette 1 towel miscellaneous QHS Qty: 100 0RF hydrocodone-acetaminophen 5-325 mg tablet 1 tab PO Q6H PRN PRN (Reason: Pain) 3 Days Qty: 10 0RF Primary Care Provider: Suhail Loaiza Referrals: Suhail Loaiza MD [Primary Care Provider] - 1 Week if not improving Activity Restrictions/Additional Instructions: As discussed, the hydrocodone and cyclobenzaprine that I am prescribing for you to help with both pain and spasm can make you sedated. Please use caution when taking these medications. Please avoid taking them with your Ativan as it is also a sedating medication. The cyclobenzaprine I have written for you today will replace the Zanaflex that you are currently on. Please stop the Zanaflex. Disposition Disposition: Home, Self Care
[2023-06-07] MEDS: HYDROcodone Bitartrate/Apap 5/325 Tablet PO (06:02)
[2023-06-07] MEDS: cycloBENZAPRine HCl 10 MG Tablet PO (06:02)
[2023-06-07 08:27] VITALS: BP 129/88; PULSE 71; RESP 16; O2SAT 95
== END 2023-06-07 08:28 | disposition home or self-care (01) ==
PROVIDERS: Emergency Provider Emergency Medicine; PCP Family Medicine; Visit Provider Emergency Medicine
DX: M62.830 Muscle spasm of back (principal); E11.9 Type 2 diabetes mellitus without complications; E78.5 Hyperlipidemia, unspecified; Z87.891 Personal history of nicotine dependence; I10 Essential (primary) hypertension
CPT/HCPCS: 99285

== ENCOUNTER 2023-06-13 05:34 | Observation (INO) | payer MEDICARE, MEDICAID, SELFPAY ==
[2023-06-13 05:35] VITALS: BP 147/87; PULSE 87; RESP 15; TEMP 36.6; O2SAT 99; BMI 20.5
--- NOTE | 2023-06-13 05:54 | CT_ITS ---
EXAM: CT LUMBAR SPINE WITHOUT INTRAVENOUS CONTRAST CLINICAL INDICATION: pain pain TECHNIQUE: Helically acquired images were obtained of the lumbar spine without intravenous contrast. 2D reformats were reviewed. This CT exam was performed using one or more of the following dose reduction techniques: automated exposure control, adjustment of the mA and/or kV according to patient size, and/or use of iterative reconstruction technique. RADIATION DOSE: CTDIvol = 13.83 mGy, DLP = 398.28 mGy-cm COMPARISON: No relevant prior studies available. FINDINGS: VERTEBRAE: There is multilevel spondylosis. There are bridging osteophytes at the L2-3 and L3-4 levels, consistent with auto fusions. There are multilevel degenerative changes of facet joints. No fracture. No traumatic subluxation. No discrete lytic or blastic abnormality. Normal alignment. DISCS/SPINAL CANAL/NEURAL FORAMINA: L1-2: No demonstrated stenosis. L2-3: Bridging osteophytes. Very small broad posterior disc protrusion. No demonstrated stenosis. L3-4: Bridging osteophytes. No demonstration of stenosis. L4-5: No demonstrated stenosis. L5-S1: No demonstrated stenosis. VASCULATURE: Visualized abdominal aorta is not dilated. LYMPH NODES: Unremarkable. No retroperitoneal adenopathy. CT/Spine Lumbar without Contrast IMPRESSION: 1. Multilevel degenerative changes, as above. 2. No evidence for fracture or subluxation. Electronically Signed: Valente Prieto MD at 7:37 EST Reading Location ID and State: [facility] / [place] , Service support ,
--- NOTE | 2023-06-13 05:55 | EDS_ITS ---
HPI History of Present Illness Chief Complaint: Back Narrative Narrative: 72-year-old male presents via EMS after sneezing this morning and having back spasms. Having pain mainly in his left low back. He had remote history of falls but none recently. He states he lives at home alone. Of note, he was seen in the emergency department last week and given prescriptions for hydrocodone acetaminophen and for Flexeril. He states that he was taking those medications, and was improving. He was able to get up and walk around, however he sneezed this morning approximately an hour ago and started having back muscle spasms and pain in his left lower back and into his hip. He denies any recent falls. No fevers or chills. As he lives alone he called EMS because of the pain even with trying to move his left lower extremity. [facility] Medical History Anxiety Depression Diarrhea Hyperlipidemia Hypertension Kidney disease Type II diabetes mellitus Home Medications citalopram 20 mg tablet 20 mg PO DAILY 07/02/18 [History Last Taken Unknown] lisinopril 10 mg tablet 10 mg PO DAILY 07/02/18 [History Last Taken Unknown] lorazepam 1 mg tablet 1 mg PO BID PRN PRN Anxiety 07/02/18 [History Last Taken Unknown] mirtazapine 30 mg tablet 45 mg PO QHS 07/02/18 [History Last Taken Unknown] simvastatin 20 mg tablet 20 mg PO QHS 07/02/18 [History Last Taken Unknown] sitagliptin phosphate 50 mg tablet (Januvia) 50 mg PO DAILY 07/02/18 [History Last Taken Unknown] metoprolol succinate 25 mg tablet,extended release 24 hr 25 mg PO DAILY 07/20/18 [History Last Taken Unknown] loperamide 2 mg capsule (Imodium A-D) 2 mg PO Q6H PRN loose stool #20 caps 01/13/21 [Rx Last Taken Unknown] insulin detemir U-100 100 unit/mL (3 mL) subcutaneous pen (Levemir FlexTouch U- 100 Insulin) 10 unit (0.1 mL) subcut QHS #15 mL 12/03/21 [Rx Last Taken Unknown] isopropyl alcohol 70 % towelette (Alcoh-Wipe) 1 towel miscellaneous QHS #100 ea 12/03/21 [Rx Last Taken Unknown] metformin 500 mg tablet 500 mg PO BID #120 tabs 12/03/21 [Rx Last Taken Unknown] pen needle, diabetic 30 gauge x 10/05 #100 ea 12/03/21 [Rx Last Taken Unknown] cyclobenzaprine 10 mg tablet 10 mg PO TID PRN Muscle Spasm #15 TABLETS 06/07/23 [Rx Last Taken Unknown] Allergy/AdvReac Type Severity Reaction Status Date / Time dapagliflozin [From [facility]] AdvReac Severe DKA Verified 06/13/23 05:43 Family History Other Diabetes Hypertension Social History household members: none housing: apartment other: Patient does not drive Smoking Status: Former smoker alcohol intake: never substance use type: does not use diet: diabetic ROS ROS ED ROS Narrative Constitutional: No fever, no chills. HEENT: No sore throat. No neck pain. No loss of vision. No rhinorrhea. Cardiovascular: No chest pain. No palpitations. No pedal edema. Respiratory: No cough, no shortness of breath. Abdominal: No abdominal pain. No nausea. No vomiting. Genitourinary: No dysuria. No hematuria. Musculoskeletal: No myalgias. Positive low back pain, left, radiating into left hip. Neurologic: No headaches. No dizziness. No lightheadedness. Skin: No rash. No change in color. Psychiatric: No depression. No anxiety. EXAM Physical Exam Narrative Exam Narrative: Afebrile. Vital signs noted. HEENT: Normocephalic. Atraumatic. PERRL, EOMI. Neck soft and supple. No point tenderness or step off. Cardiovascular: Regular rate and rhythm. No murmurs, rubs, or gallops apprecia denton. Respiratory: No tachypnea. Lungs clear to auscultation bilaterally. Gastrointestinal: Abdomen soft, nontender, with normoactive bowel sounds. No rebound or guarding. Neurological: Awake. Alert. Nonfocal, nonlateralizing. Skin: No rash. Normal color. No pallor. Musculoskeletal: No pedal edema. Full range of motion extremities. Extension of left hip and left knee mechanisms are intact. He has mild tenderness in his left lower lumbar paraspinal area. No vertebral point tenderness or bony step- off. Positive back spasms. Const Vital Signs: 06/13/23 05:35 Temperature 97.8 F Temperature Source Temporal Pulse Rate 87 Respiratory Rate 15 Blood Pressure 147/87 H Blood Pressure Mean 107 Pulse Ox 99 Oxygen Delivery Method Room Air MDM MDM MDM Narrative Medical decision making narrative: Concern is for back muscle spasms. I reviewed his prior ED visit. With him being 72 and finishing cyclobenzaprine and living alone, I discussed with him the possibility of admission/assignment to observation. He is requesting intramuscular injections for analgesia. He will be given intramuscular injections of ondansetron and 4 mg of morphine. If he is still unable to ambulate afterwards, he may require observation for placement/rehab. Additionally, given his second visit within essentially a week I do feel imaging is indicated. CT of thel umbar-spine was obtained. Patient was initially ordered analgesics, and his CT of the lumbar spine is still pending. At this point in time, [facility] make final disposition on this patient, and at laboratory work as needed in the event that he needs placement. Disposition is currently pending, patient is in stable condition. Discharge Plan Triage Chief Complaint: Back ED Provider: Mikey Mckeon Dx/Rx/DC Orders Prescriptions: No Action citalopram 20 MG tablet 20 mg PO DAILY simvastatin 20 MG tablet 20 mg PO QHS mirtazapine 30 MG tablet 45 mg PO QHS lisinopril 10 MG tablet 10 mg PO DAILY lorazepam 1 MG tablet 1 mg PO BID PRN PRN (Reason: Anxiety) Januvia 50 MG tablet 50 mg PO DAILY Hold Instructions: not on med list metoprolol succinate 25 MG tablet extended release 24 hr 25 mg PO DAILY Hold Instructions: not on med list loperamide [Imodium A-D] 2 mg capsule 2 mg PO Q6H PRN (Reason: loose stool) Qty: 20 0RF metformin 500 mg tablet 500 mg PO BID Qty: 120 0RF Levemir FlexTouch U100 Insulin 100 unit/mL (3 mL) insulin pen 10 unit subcut QHS Qty: 15 0RF (DME) pen needle, diabetic 30 gauge x 3/16 needle See Rx Instructions .ROUTE .MEDSUPPLY Qty: 100 0RF Rx Instructions: As directed Alcoh-Wipe 70 % towelette 1 towel miscellaneous QHS Qty: 100 0RF cyclobenzaprine 10 mg tablet 10 mg PO TID PRN (Reason: Muscle Spasm) Qty: 15 0RF Primary Care Provider: Suhail Loaiza Referrals: Suhail Loaiza MD [[facility]] -
[2023-06-13] MEDS: Morphine 4 MG/ML Syringe IM (06:47)
[2023-06-13] MEDS: Ondansetron 4 MG/2 ML Vial IM (06:47)
[2023-06-13 07:20] VITALS: BP 155/85; PULSE 85; RESP 18; O2SAT 99
[2023-06-13] MEDS: 0.9% Normal Saline (1000mL) 1,000 ML 999 ML IV (07:34)
[2023-06-13] MEDS: Morphine 4 MG/ML Syringe IV (07:35)
[2023-06-13 07:48] LABS: Absolute Lymphocyte Count 2.75 X10^3/uL (0.83-4.51); Absolute Neutrophil Count 5.1 X10^3/uL (2.0-7.7); Basophil# 0.03 X10^3/uL; Basophil% 0.3 % (0-1); Eosinophil# 0.08 X10^3/uL; Eosinophils% 0.9 % (0-5); Hematocrit 42.1 % (40-54); Hemoglobin 13.9 g/dL (13.0-16.5); Lymphocyte # 2.75 X10^3/ul (0.83-4.51); Lymphocyte % 31.4 % (19-41); Mean Corpuscular Hgb 30.5 pg (27.0-32.0); Mean Corpuscular Volume 92.5 fL (80-94); Mean Platelet Vol. 9.4 fl (6.2-12.0); Monocyte# 0.77 X10^3/uL; Monocyte% 8.8 % (0-10); NRBC Flagged by Analyzer 0 % (0-5); Neutrophil # 5.09 X10^3/uL (2.7-7.7); Neutrophil % 58.3 % (47-70); Platelet Count 172 K/mm3 (150-450); RBC Distribution Width CV 13.3 % (11.6-14.6); Red Blood Count 4.55 M/mm3 (4.6-6.2); White Blood Count 8.8 K/mm3 (4.4-11.0)
[2023-06-13 07:59] LABS: Anion Gap 3 (5-15); BUN 30 mg/dL (7-18); BUN/Creat Ratio 28.3 RATIO (10-20); Calcium,Total 9.2 mg/dL (8.5-10.1); Chloride 103 mmol/L (98-107); Creatinine, Serum 1.06 mg/dL (0.70-1.30); EST Glomerular Filtration Rate 73 mL/min (>60); Est Glom Filt Rate - Afr Amer 89 mL/min (>60); Estimated Creatinine Clearance 61.08 ml/min; Glucose 148 mg/dL (74-106); Potassium 4.2 mmol/L (3.5-5.1); Sodium Level 139 mmol/L (136-145)
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
--- NOTE | 2023-06-13 08:53 | NURSING ---
MED SURG OBS DENISSE INTRACTABLE BACK PAIN
[2023-06-13 09:06] VITALS: BP 162/85; PULSE 82; RESP 18; O2SAT 98
[2023-06-13 09:22] VITALS: BMI 20.2
[2023-06-13] MEDS: Lactated Ringers 1,000 ML 75 ML IV (11:00)
[2023-06-13] MEDS: Pantoprazole Sodium 40 MG Tablet PO (11:01)
[2023-06-13] MEDS: Acetaminophen 500 MG Tablet 1000 MG PO ×3 (11:01→21:17)
[2023-06-13] MEDS: Senna/Docusate Sodium 1 Tablet 2 TABLET PO ×2 (11:02→21:17)
[2023-06-13] MEDS: Enoxaparin 40 MG/0.4 ML Syringe SC (11:02)
[2023-06-13] MEDS: 0.9% Saline Lock 10 ML Syringe IV (11:13)
[2023-06-13 11:40] VITALS: O2SAT 97
[2023-06-13 14:52] VITALS: BP 135/79; PULSE 82; RESP 18; TEMP 36.7; O2SAT 98
[2023-06-13] MEDS: Insulin Lispro 100 UNIT/ML INSULN.PEN SC ×2 (16:28→21:18)
[2023-06-13] MEDS: metFORMIN HCl 500 MG Tablet PO (16:29)
[2023-06-13 16:56] LABS: Bedside Glucose 199 mg/dL (74-106)
--- NOTE | 2023-06-13 17:05 | CASEMGMT ---
ZHANNA THOMAS made aware by pt nurse that therapy rec a walker for pt, did not note this in evals. ZHANNA THOMAS into pt room to discuss with pt. Pt states he does not want a walker that there is not enough room in his home to use. Pt states he will get a cane if he feels this is necessary but typically it is not.
[2023-06-13 20:01] VITALS: BP 130/81; PULSE 85; RESP 16; TEMP 36.7; O2SAT 98
[2023-06-13] MEDS: Mirtazapine 15 MG Tablet 45 MG PO (21:17)
[2023-06-13] MEDS: Atorvastatin Calcium 10 MG Tablet PO (21:17)
[2023-06-13] MEDS: Insulin Glargine-YFGN 100 UNIT/ML Pen 16 UNIT SC (21:18)
[2023-06-13] MEDS: LORazepam 0.5 MG Tablet PO (21:24)
[2023-06-13 21:44] LABS: Bedside Glucose 212 mg/dL (74-106)
[2023-06-14 02:25] VITALS: BP 157/75; PULSE 87; RESP 16; TEMP 36.6; O2SAT 97
[2023-06-14] MEDS: Acetaminophen 500 MG Tablet 1000 MG PO (05:33)
[2023-06-14 05:35] VITALS: BMI 21.4
[2023-06-14 05:57] LABS: Bedside Glucose 144 mg/dL (74-106)
[2023-06-14 06:23] LABS: Anion Gap 4 (5-15); BUN 22 mg/dL (7-18); Calcium,Total 8.6 mg/dL (8.5-10.1); Chloride 106 mmol/L (98-107); EST Glomerular Filtration Rate 78 mL/min (>60); Est Glom Filt Rate - Afr Amer 95 mL/min (>60); Estimated Creatinine Clearance 67.57 ml/min; Glucose 131 mg/dL (74-106); Potassium 4.3 mmol/L (3.5-5.1); Sodium Level 142 mmol/L (136-145)
[2023-06-14 07:11] VITALS: O2SAT 94
[2023-06-14 08:00] VITALS: O2SAT 97
[2023-06-14 08:25] VITALS: BP 139/79; PULSE 98; RESP 18; TEMP 36.7; O2SAT 97
[2023-06-14] MEDS: Pantoprazole Sodium 40 MG Tablet PO (08:30)
[2023-06-14] MEDS: Polyethylene Glycol 3350 17 GM PACKET PO (08:30)
[2023-06-14 08:31] VITALS: PULSE 80
[2023-06-14] MEDS: metFORMIN HCl 500 MG Tablet PO (08:31)
[2023-06-14] MEDS: Metoprolol(XL)Succ 25 MG Tablet PO (08:31)
[2023-06-14] MEDS: Senna/Docusate Sodium 1 Tablet 2 TABLET PO (08:31)
[2023-06-14] MEDS: Lisinopril 10 MG Tablet PO (08:32)
[2023-06-14] MEDS: Enoxaparin 40 MG/0.4 ML Syringe SC (08:32)
[2023-06-14] MEDS: Citalopram 20 MG Tablet PO (08:33)
[2023-06-14] MEDS: LORazepam 0.5 MG Tablet PO (08:36)
--- NOTE | 2023-06-14 10:21 | DCINST_ITS ---
Discharge Instructions Diet Discharge Diet: No restrictions Activity Discharge Activity: Return to Normal Activity Weight Bearing Status: Weight bearing as tolerated Dressing / Incision Call your doctor if you observe: Fever of 101 or Higher, Coldness, Increased Pain, Numbness or Tingling, Change in Color, Inability to urinate, Inability to have a bowel movement, Shortness of breath, Dizziness, Fainting spells, Swelling in the ankles, Chest pain, Prolonged hiccupping, Increased palpitations (irregular heartbeat) and Calf discomfort Follow Up Care When: IN 2 WEEKS Test Results: Test results from this visit will be discussed in further detail at your follow- up appointment, if applicable. Discharge Plan Admission Admit Date/Time: 06/13/23 08:39 Primary Reason for Your Visit: lower back pain and spasm Attending Provider: Travon Santana Primary Care Provider: Suhail Loaiza Instructions Additional Instructions / Restrictions: Apply diclofenac gel locally on lower back pain at the site of pain. Discharge Orders/Prescriptions Prescriptions: New polyethylene glycol 3350 17 gram Powder In Packet 17 g PO DAILY Qty: 0 0RF Rx Instructions: Vlim-lwl-hostjqc. acetaminophen 500 mg Tablet 1,000 mg PO Q8 Qty: 0 0RF Rx Instructions: Miub-vdz-qpxipam. 1 g every 8 hourly for 3 days and then as needed as needed for pain. pantoprazole 40 mg Tablet,Delayed Release (Dr/Ec) 40 mg PO DAILY 30 Days Qty: 30 0RF diclofenac sodium 3 % gel 1 applic topical BID Qty: 100 0RF ibuprofen [Motrin IB] 200 mg tablet 400 mg PO Q8H PRN (Reason: back pain) Qty: 20 0RF Rx Instructions: FOR TOTAL OF 1 WEEK tramadol 50 mg tablet 50 mg PO Q8H PRN (Reason: pain (scale score 7-10)) Qty: 20 0RF sennosides-docusate sodium [Stool Softener-Stimulant Laxat] 8.6-50 mg Tablet 2 tab PO BID Qty: 0 0RF Rx Instructions: Szzi-qmy-rkyqetu. Continued citalopram 20 MG tablet 20 mg PO DAILY simvastatin 20 MG tablet 20 mg PO QHS mirtazapine 30 MG tablet 45 mg PO QHS lisinopril 10 MG tablet 10 mg PO DAILY lorazepam 1 MG tablet 1 mg PO BID PRN PRN (Reason: Anxiety) Januvia 50 MG tablet 50 mg PO DAILY Hold Instructions: not on med list metoprolol succinate 25 MG tablet extended release 24 hr 25 mg PO DAILY Hold Instructions: not on med list loperamide [Imodium A-D] 2 mg capsule 2 mg PO Q6H PRN (Reason: loose stool) Qty: 20 0RF metformin 500 mg tablet 500 mg PO BID Qty: 120 0RF (DME) pen needle, diabetic 30 gauge x 3/16 needle See Rx Instructions .ROUTE .MEDSUPPLY Qty: 100 0RF Rx Instructions: As directed Alcoh-Wipe 70 % towelette 1 towel miscellaneous QHS Qty: 100 0RF cinnamon bark [Cinnamon] 500 mg capsule 2,000 mg PO BID Ozempic 0.25 mg or 0.5 mg (2 mg/3 mL) pen injector 0.5 mg subcut QWEEK Patient Comments: takes on Mondays tizanidine 4 mg tablet Patient Comments: Take 1 tablet by mouth every 8 hours as needed (muscle spasms) for up to 10 days. insulin detemir U-100 100 unit/mL (3 mL) insulin pen 16 unit subcut QHS cyclobenzaprine 10 mg tablet 10 mg PO TID PRN (Reason: Muscle Spasm) Qty: 20 0RF Referrals / Follow Up: Pramod Dickson MD [Med Staff - Active Staff] - Within 2 Weeks (FOR LOWER BACK PAIN) Suhail Loaiza MD [Primary Care Provider] - Within 1 Week Suhail Loaiza MD [[facility]] - None Disposition Disposition (needs filled in before D/C Order can be placed): Home, Self Care
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
--- NOTE | 2023-06-18 11:57 | CASEMGMT ---
HZANNA THOMAS: A prior authorization request was received for diclofenac sodium 3%. Call placed to pt who states he did not receive this medication and does not have transportation to pick it up. States he does have someone on Tuesdays but it will cost him $20. Pt states his pain has decreased and he has only a little residual pain at this time. States he did receive all of his other medications and has been taking the pain medication which has been effective. Pt states he has an appointment next Sunday with Dr. Dickson at 0900. Pt states if the diclofenac sodium can be delivered he would use it but he is not sure he needs it. This ZHANNA THOMAS called [facility] and per Crispin, this medication is over the counter and is not covered by pt's JCARLOS plan. Pt notified of this and states he does not feel he needs it at this time and states don't worry about it. Instructed pt that if he changes his mind he can pick this up over the counter or have someone pick it up for him. Pt expressed understanding and again reiterated that he is feeling much better. Pt denied any further questions or concerns. Makayla Mandujano RN CM
== END 2023-06-14 12:53 | disposition home or self-care (01) ==
LOC: ED 08:48 → MS3 08:50
PROVIDERS: Admitting Provider Internal Medicine; Emergency Provider Student in an Organized Health Care Education/Training Program; PCP Family Medicine; Visit Provider Internal Medicine
DX: G89.29 Other chronic pain (principal); E11.22 Type 2 diabetes mellitus with diabetic chronic kidney disease; Z79.4 Long term (current) use of insulin; M54.50 Low back pain, unspecified; E78.5 Hyperlipidemia, unspecified; M62.830 Muscle spasm of back; Z87.891 Personal history of nicotine dependence; Z79.84 Long term (current) use of oral hypoglycemic drugs; I12.9 Hypertensive chronic kidney disease with stage 1 through stage 4 chronic kidney disease, or unspecified chronic kidney disease; Z79.899 Other long term (current) drug therapy; F32.A Depression, unspecified; F41.9 Anxiety disorder, unspecified; N18.2 Chronic kidney disease, stage 2 (mild)
CPT/HCPCS: 36415; 72131; 80048; 82962; 85025; 96361; 96372; 96374; 97161; 97166; 99221; 99285; J7030; J7120; A4216; G0378; J2405

== ENCOUNTER → 2023-07-17 | Outpatient (CLI) | payer MEDICARE, MEDICAID, SELFPAY ==
--- NOTE | 2023-07-17 12:18 | MRI_ITS ---
STUDY: MRI LUMBAR SPINE WITHOUT CONTRAST REASON FOR EXAM: Male, 73 years old. pain LEG WEAKNESS TECHNIQUE: Standardized fat and water weighted pulse sequences were obtained in the sagittal and axial planes. COMPARISON: None FINDINGS: T12-L1: Normal endplates. Normal disc height, hydration and morphology. Normal bilateral facet joints. Normal central canal and bilateral lateral recesses. Normal bilateral intervertebral neural foramina. Normal lumbar lordosis. There is no substantial scoliosis. Normal conus medullaris that terminates at the T12. L1-2: Preserved disc space with mild disc desiccation. No significant disc bulge, spinal canal narrowing or foraminal narrowing. L2-3: Preserved disc space with mild disc desiccation. No significant disc bulge, spinal canal narrowing or foraminal narrowing. L3-4: Preserved disc space with mild disc desiccation. No significant disc bulge, spinal canal narrowing or foraminal narrowing. L4-5: Preserved disc space with mild disc desiccation. No significant disc bulge, spinal canal narrowing or foraminal narrowing. L5-S1: Mild decreased disc space and degenerative disc changes are present. Minimal broad-based disc bulge is present. No significant spinal canal narrowing or foraminal narrowing. Normal visualized sacral ala. Normal visualized paraspinous soft tissue structures. MRI/Spine Lumbar (Routine) IMPRESSION: Mild lumbar degenerative changes above with no evidence of significant spinal canal narrowing or foraminal narrowing. Electronically Signed: Mono Patel DO at 14:47 EST ,
== END | disposition home or self-care (01) ==
PROVIDERS: PCP Family Medicine; Referring Provider Orthopaedic Surgery Orthopaedic Surgery of the Spine; Visit Provider Orthopaedic Surgery Orthopaedic Surgery of the Spine
DX: M54.16 Radiculopathy, lumbar region (principal)
CPT/HCPCS: 72148

== ENCOUNTER 2023-08-07 13:00 | Outpatient (RCR) | payer MEDICARE, MEDICAID, SELFPAY ==
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
--- NOTE | 2023-08-07 13:49 | HP.PTDCSUM ---
Discharge Summary D/C summary: It has been my pleasure to treat MARYCHUY PATTERSON referred by Dr. Pramod Dickson MD, with the diagnosis of RADICULOPATHY ,LUMBAR for a total of 9 visit(s). Discharge Date: 08/07/23 Please see the following information for a summary of their discharge status. Subjective Subjective: Doing well with ex's, Patient believes ready for d/c Pain LBP: Pain Intensity (Out of 10): 0 Overall Improvement % Improvement: 90 Objective Objective/Function: POSTURE: mild forward posture GAIT: reciprocal pattern NEURO: denies paresthesia/tingling , reflexes L3-4,L4-5 ,L5-S1 1/3 MMT: quads/hams 4/5 ,( PEAK FORCE) hip flexion 26.7,left ,right 23.6 ,hip abduction 13.9 ,left ,right 12.8 ,ankle 4/5 FLEXABLITY: hamstrings min loss LUMBAR ROM: flexion mod loss ,extension mod loss ,side glides mod loss FLEXABILITY: min tight hamstring Goals Goal 1:: Patient to be I with HEP for back Goal Progress: Goal Met Goal 2:: Patient to demonstrate 50% improvement with decrease pain and improved function Goal Progress: Goal Met Goal 3:: Patient improve lumbar ROM for function of recovery to tie shoes Goal Progress: Goal Met Goal 4:: Patient to improve back oswestry score by 5 points to improve QOL and function Goal Progress: Goal Met Goal 5:: Patient to improve peak force hips by 5-10 # strength to improve function Goal Progress: Goal Met Plan Plan: D/C TO HEP D/C Information Discharge Comments: HEP d/c sentence: If there are questions or concerns regarding this patient's physical therapy, please feel free to call me at [phone]. Thank you for the referral of this patient. Sincerely, Guy Henderson, PT, Cert MDT, OCS Balance/Gait/Functional tests Balance/Special Test Scores Oswestry Low Back Score: 5 30 Second Chair Rise Test Seconds: 9 Improvement % Improvement: 90
== END 2023-08-07 19:00 | disposition home or self-care (01) ==
LOC: PT 13:00
PROVIDERS: PCP Family Medicine; Referring Provider Orthopaedic Surgery Orthopaedic Surgery of the Spine; Visit Provider Orthopaedic Surgery Orthopaedic Surgery of the Spine
DX: M54.16 Radiculopathy, lumbar region (principal)
CPT/HCPCS: 97110; 97162; 97530

== ENCOUNTER → 2025-04-15 | Outpatient (CLI) | payer MEDICARE, MEDICAID, SELFPAY ==
--- NOTE | 2025-04-15 08:17 | AAAS_ITS ---
Reason For Study Reason For Study: AAA Screening Aorta Measurements Aorta Doppler Measurements Proximal aorta measures1.79 x 1.77cm. in cross-sectional Peak systolic flow velocities within the proximal aorta axis. measure 86.8 cm/sec. Proximal aorta measures1.59cm. in longitudinal axis. Peak systolic flow velocities within the mid aorta measure Mid aorta measures1.92 x 1.92cm. in cross-sectional axis. 103.1 cm/sec. Mid aorta measures1.78cm. in longitudinal axis. Peak systolic flow velocities within the distal aorta Distal aorta measures1.65 x 1.65cm. in cross-sectional axis.measure 94.1 cm/sec. Distal aorta measures1.65cm. in longitudinal axis. Left Iliac Artery Left iliac artery measures 1.14 x1.10 cm. in the cross-sectional axis. Left iliac artery measures 1.12 cm. in the longitudinal axis. Peak systolic velocity in the left iliac artery measures 106.7 cm/sec. Right Iliac Artery Right iliac artery measures 1.02 x 0.99 cm. in the cross-sectional axis. Right iliac artery measures 0.91 cm. in the longitudinal axis. Peak systolic velocity in the right iliac artery measures 101.3 cm/sec. Procedure Aorta IVC Iliac vasculature or bypass grafts [id number]. The exam was diagnostic. Exam performed in department. VL/AAA Screening Interpretation Summary The dimensions of the intra-abdominal aorta appear normal, without evidence of aneurysmal dilatation. The iliac arteries also appear normal in caliber bilaterally. The intra-abdominal aorta and iliac arteries are patent, demonstrating normal, pulsatile arterial flow and normal peak systolic velocities. Ordering Physician: Anjum Joseph Referring Physician: Anjum Joseph Performed By: Mateusz Campo RVT and Student
== END | disposition home or self-care (01) ==
PROVIDERS: PCP Nurse Practitioner Family; Referring Provider Nurse Practitioner Family; Visit Provider Nurse Practitioner Family
DX: Z12.2 Encounter for screening for malignant neoplasm of respiratory organs (principal); Z13.6 Encounter for screening for cardiovascular disorders
CPT/HCPCS: 76706